=== PATIENT | female | born 1960 | race Caucasian/White ===

== ENCOUNTER 2016-12-11 10:52 | Emergency (ER) | payer OTHER ==
[~2016-12-11] VITALS: Ht 165.1 cm; Wt 85.8 kg
[~2016-12-11 10:52] MED LIST: CHOL400T PO; CLB/200 PO; FOLI1TAB7 PO; HYDR0.5T PO; MAGN250T8 PO; METH2.5T PO; PRED10TA PO
[2016-12-11 11:06] VITALS: TEMP 37.5; Ht 165.1 cm; Wt 85.8 kg
[2016-12-11] MEDS ORDERED: HYDR200T5 PO (12:09)
[2016-12-11] MEDS ORDERED: GLUC10007 PO (12:11)
[2016-12-11] MEDS ORDERED: CALC500C70 PO (12:12)
[2016-12-11] MEDS ORDERED: ACET325T96 PO (12:13)
[2016-12-11 13:03] LABS: PROTHROMBIN TIME (PATIENT) 10.6 SECONDS (9.0-12.0)
[2016-12-11 13:07] LABS: BUN/CREATININE RATIO 21.8 (10-20); CALCIUM 9.5 mg/dl (8.5-10.1); CREATININE 0.71 mg/dl (0.60-1.20); POTASSIUM 3.9 mmol/L (3.5-5.1)
--- NOTE | 2016-12-11 13:14 | DIAGNOSTIC IMAGING REPORT ---
Venous Doppler right leg RIGHT VENOUS DOPP LOWER EXT UNILAT CLINICAL HISTORY: eval dv Right pain. Edema. TECHNIQUE: Venous Doppler COMPARISON STUDY: None FINDINGS: No evidence for deep venous thrombosis. 3 x 2 cm popliteal cyst posterior to the right knee. IMPRESSION: 1. No evidence for deep venous thrombosis. 2. Popliteal cyst posterior to the right knee Electronically signed by: Pravin Avendaño M.D. 12/11/2016 1:12 PM Dictated Date/Time: 12/11/2016 1:11 PM
[2016-12-11 13:15] LABS: BASO % 0.1 %; BASO ABS # 0.02 K/uL (0-0.2); COMPLETE YES; EOS % 0.1 %; HEMATOCRIT 42.4 % (37-47); IG% 0.3 %; LYMPH % 8.5 %; MEAN CELL VOLUME 94.2 fL (80-100); MEAN CORPUSCULAR HEMOGLOBIN 31.8 pg (25-34); MEAN CORPUSCULAR HGB CONC 33.7 g/dl (32-36); MEAN PLATELET VOLUME 8.7 fL (7.4-10.4); MONO % 5.1 %; NEUT % 85.9 %; PLATELET COUNT 291 K/uL (130-400); WHITE BLOOD COUNT 15.26 K/uL (4.8-10.8)
[2016-12-11] MEDS ORDERED: CEFTRIAXONE SOD INJ 1 GM in DEXTROSE 5% ADD-VANTAGE 50ML 50 ML IV STA (13:22)
[2016-12-11] MEDS ORDERED: SULFAMETHOXAZOLE/TRIMETHOPRIM DS 800/160MG TAB PO STA (14:03)
[2016-12-11] MEDS ORDERED: DOXY100C2 PO (14:14)
[2016-12-11] MEDS ORDERED: DOXYCYCLINE HYCLATE 100 MG CAP PO ONE (14:15)
[2016-12-11 14:35] VITALS: BP 117/64; PULSE 78; O2SAT 99
--- NOTE | 2016-12-11 19:53 | EMERGENCY ROOM VISIT NOTE ---
ED Visit Note First contact with patient: 11:29 Chief Complaint: My right leg is hot and swollen. History of Present Illness: Ms. vickers is a 56-year-old white female who ambulates into the ED accompanied by female friend complaining of pain in the right lower leg associated with swelling and redness. Patient was referred to the ED from the [facility] urgent care center for evaluation of her symptoms including rule out of deep vein thrombus. Patient reports 2 days ago she was scratched by a cat on her right lower leg. She did clean the wound after the initial injury. Yesterday she noticed a erythematous rash on her lower leg that has been slowly spreading over the last 24 hours. Associated with her rash she reports a burning pain in the area of her cat scratch and rash. She rates her discomfort 7/10. Her pain is nonradiating. Her pain worsens with palpation. She has not identified any alleviating factors related to the pain. She has not taken any medications for her discomfort prior to arrival at the hospital. Associated with her pain she reports she has noted some swelling and throbbing in the right lower leg. Additionally she does report a few days ago she traveled to [place] from [facility]. She denies any fevers, sweats, chills, other skin eruptions, upper respiratory tract symptoms, cough, wheezing, shortness of breath, palpitations, previous clots, claudication, cramping, recent surgery/inactivity, abdominal pain, nausea , vomiting, back/flank pain, lower extremity weakness/numbness/tingling. Review of Systems: As noted above in history of present illness. All body systems were reviewed and found to be negative as noted above. Past Medical History: Rheumatoid arthritis, status post oral surgery. Current Medications: Prednisone, magnesium, methotrexate, Fernández Gassett, vitamin D, plaquenil, glucosamine, Os-Javy, acetaminophen. Allergies to Medications: Patient denies. Social History: Patient is not employed; she lives with her and feels safe in her home environment; she denies tobacco and alcohol use. Physical Examination: Vital Signs: Date Time Temp Pulse Resp B/P (MAP) Pulse Ox O2 Delivery O2 Flow Rate FiO2 12/11/16 14:35 78 18 117/64 99 12/11/16 12:41 81 18 121/85 98 Room Air 12/11/16 11:06 37.5 85 22 156/118 98 Room Air GENERAL: 56-year-old female in mild distress due to pain, nontoxic-appearing, afebrile and hemodynamically stable. NEUROLOGICAL: Awake, alert and oriented to person, place and time. Answering questions appropriately and following commands. Normal gait. Good hand eye coordination. No focal motor or sensory deficits. SKIN: Warm, dry and pink. Right Lower Leg: Circumferentially over the lower aspect of the leg patient has a fine lacelike erythematous rash. This area slightly swelling there is no extended erythema. Over the rash the skin is warm to touch. The skin does not have true appearance of cellulitis. There is no lymphangitis. No purulent drainage. Additionally this rash is over venous status changes to the extremity. HEENT: Atraumatic and normocephalic. PERRLA. Sclera white and conjunctiva pink. No drainage from naris. Oral cavity moist and pink. Pharynx is nonerythematous or edematous. Speech normal. No lymphadenopathy. Trachea midline. No jugular venous distention. THORAX: Lungs sounds are clear to auscultation and equal bilaterally with symmetrical chest wall. No wheezing, rales or rhonchi. No crepitus, tenderness , subcutaneous air or deformities noted. HEART: Regular rate and rhythm. No gallops, rubs or murmurs are appreciated. ABDOMEN: Soft and nontender. Positive bowel sounds in all quadrants. No guarding, rigidity or organomegaly. EXTREMITIES: Moves all extremities well on command and with purpose. All distal neurovascular statuses are intact and equal bilaterally. RIGHT LOWER EXTREMITY: No gross bony deformity. No tenderness in the knee, ankle or foot. Soft tissue irruption as under noted SKIN. Full range of motion in flexion and extension of the knee and plantar flexion and dorsiflexion of the ankle. No calf tenderness or cords. Distal pulses are intact and capillary refill is brisk. She is able to distinguish light sensations through all dermatomes of the foot. ED Course: Patient is assessed as noted above. Patient's medication list was reviewed. Laboratory Testing: Test 12/11/16 12:31 12/11/16 12:37 Range/Units Sodium Level 140 136-145 mmol/L Potassium Level 3.9 3.5-5.1 mmol/L Chloride Level 106 98-107 mmol/L Carbon Dioxide Level 26 21-32 mmol/L Anion Gap 8.0 3-11 mmol/L Blood Urea Nitrogen 16 7-18 mg/dl Creatinine 0.71 0.60-1.20 mg/dl Est Creatinine Clear Calc Drug Dose 96.8 ml/min Estimated GFR () 111.1 Estimated GFR (Non- 95.9 BUN/Creatinine Ratio 21.8 10-20 Random Glucose 94 70-99 mg/dl Calcium Level 9.5 8.5-10.1 mg/dl White Blood Count 15.26 4.8-10.8 K/uL Red Blood Count 4.50 4.2-5.4 M/uL Hemoglobin 14.3 12.0-16.0 g/dL Hematocrit 42.4 37-47 % Mean Corpuscular Volume 94.2 80-100 fL Mean Corpuscular Hemoglobin 31.8 25-34 pg Mean Corpuscular Hemoglobin Concent 33.7 32-36 g/dl Platelet Count 291 130-400 K/uL Mean Platelet Volume 8.7 7.4-10.4 fL Neutrophils (%) (Auto) 85.9 % Lymphocytes (%) (Auto) 8.5 % Monocytes (%) (Auto) 5.1 % Eosinophils (%) (Auto) 0.1 % Basophils (%) (Auto) 0.1 % Neutrophils # (Auto) 13.09 1.4-6.5 K/uL Lymphocytes # (Auto) 1.30 1.2-3.4 K/uL Monocytes # (Auto) 0.78 0.11-0.59 K/uL Eosinophils # (Auto) 0.02 0-0.5 K/uL Basophils # (Auto) 0.02 0-0.2 K/uL RDW Standard Deviation 45.2 36.4-46.3 fL RDW Coefficient of Variation 13.1 11.5-14.5 % Immature Granulocyte % (Auto) 0.3 % Immature Granulocyte # (Auto) 0.05 0.00-0.02 K/uL Prothrombin Time 10.6 9.0-12.0 SECONDS Prothromb Time International Ratio 1.0 0.9-1.1 Blood Culture: Pending Venous Doppler Ultrasound: Was reviewed by myself and read by the radiologist showing no evidence of deep vein thrombus. Radiologist does note a popliteal cyst. Patient was offered pain medications and refused. Patient's case was consulted with the ED pharmacist; after reviewing her medical records it was decided that she should be covered with doxycycline for antibiotic coverage. Patient was given 100 mg of doxycycline by mouth. Patient requested information about her current ED bill and if it would be covered from her [employer] insurance; I referred her questions to case management who met with the patient. Patient was educated about today's findings and instructed on her treatment plan ; she verbalizes understanding and agreement with this plan. Clinical Impression: Right lower leg cat scratch. Possible cellulitis. Decision-Making: Initially my differential diagnosis I considered cat scratch infection, cellulitis, deep vein thrombus, abscess and other causes. Disposition: Patient discharged home in stable condition accompanied by female friends; prior to departure she was reassessed and subjectively reported she was feeling better and rated her discomfort 3/10. Plan: Patient was encouraged to use ibuprofen or acetaminophen as needed for pain every 6 hours. Patient was prescribed doxycycline 100 mg 2 times a day for 10 days. Patient was encouraged to keep her foot elevated while at rest. Patient was encouraged return the ED and 36-48 hours for recheck. Patient was encouraged return the ED sooner for increasing redness/swelling, red streaking, any puslike drainage from the wound, fevers, uncontrolled pain or any new/concerning symptoms.
== END 2016-12-11 14:35 | disposition home or self-care (01) ==
LOC: C.EDB 10:54 → C.EDD 14:35
DX: S80.811A Abrasion, right lower leg, initial encounter (principal); W55.03XA Scratched by cat, initial encounter; M06.9 Rheumatoid arthritis, unspecified; Z79.899 Other long term (current) drug therapy; Z79.52 Long term (current) use of systemic steroids

== ENCOUNTER 2024-12-17 09:30 | Inpatient (IN) ==
--- NOTE | 2024-12-17 10:17 | Emergency Department Note ---
History of Present Illness General Chief complaint: Shortness of Breath/Dyspnea Stated complaint: CANT BREATH,SOB Time Seen by Provider: 12/17/24 09:42 History of Present Illness Maximum Pain Intensity: 8 Patient is a 64-year-old female with past medical history significant for RA on chronic prednisone and methotrexate, and large B-cell lymphoma status post chemotherapy in 2022 who presents to the emergency department for evaluation of shortness of breath and back pain. She has had multiple screening PET scans since treatment and the scan from november unfortunately noted significant new metabolically active lymphadenopathy. She underwent an intra-abdominal lymph node biopsy in [place] on 6 days ago(12/11). It was an oupatient procedure, and she came home the same day. She expectedly felt poorly the day of surgery, but the following day on Sunday, she felt well, she was up and active and was able to do some yard work. Over the weekend however roughly 3 to 4 days ago, she began to feel increasingly short of breath, and developed back and rib pain. She was seen at her primary care provider's office yesterday, given albuterol inhaler, Flonase and Singulair because they thought her symptoms were related to "sinus drainage." Patient denies any sinus or nasal congestion however. She reports bilateral posterior thoracic rib pain that developed in the last day or so and kept her up overnight. Ibuprofen did help with her pain, but it is worse with coughing. She has had increasing shortness of breath. No help with the albuterol inhaler. She does report abdominal distention, but no pain. She is a little belchy and has been passing gas. She has had a bowel movement since surgery. No urinary symptoms. She does report she is 13 pounds heavier than the day of her surgery. She does admit to anorexia but no nausea or vomiting. Home Medications Medication Instructions Recorded Confirmed Type celecoxib 200 mg capsule (Celebrex) 200 mg PO DAILY 06/14/20 12/17/24 History folic acid 1 mg tablet 1 mg PO DAILY 06/14/20 12/17/24 History magnesium 250 mg tablet 250 mg PO DAILY 06/14/20 12/17/24 History methotrexate sodium 2.5 mg tablet 20 mg PO WK 06/14/20 12/17/24 History acetaminophen 500 mg tablet 1,000 mg PO Q6H PRN fever/pain 06/16/20 12/17/24 History (Tylenol Extra Strength) calcium 600 mg (as 1 tab PO DAILY 04/11/24 12/17/24 History carbonate)-vitamin D3 10 mcg (400 unit) tablet (Calcium 600 + D(3)) gabapentin 300 mg capsule 300 mg PO TID 04/11/24 12/17/24 History prednisone 1 mg tablet 1 mg PO QAM 10/12/24 12/17/24 History prednisone 5 mg tablet 7.5 mg PO QAM 10/12/24 12/17/24 History albuterol sulfate 90 mcg/actuation 2 puff inhalation Q6H PRN 12/17/24 12/17/24 History aerosol inhaler Shortness Of Breath Or Wheezing fluticasone propionate 50 1 spray intranasal DAILY 12/17/24 12/17/24 History mcg/actuation nasal spray,suspension montelukast 10 mg tablet 10 mg PO DAILY 12/17/24 12/17/24 History Allergies Allergy/AdvReac Type Severity Reaction Status Date / Time amoxicillin Allergy Intermediate Rash Verified 12/17/24 12:53 Past Med/Surg History Problem List (Updated 12/17/24 @ 16:37 by Candy Randolph) Bilateral pleural effusion (Acute) Shortness of breath (Acute) Lymphoma Dyspnea on effort Bilateral chylothorax Hypoxia (Acute) Pleural effusion Rotator cuff tear arthropathy of right shoulder COVID-19 (Acute) Postauricular lymphadenopathy Arthritis Cervical lymphadenopathy Laceration (Acute) Medical History Port-A-Cath in place unsure type of device Neuropathy Bilateral Lower Extremeties Rheumatoid arthritis Rotator cuff tear arthropathy of right shoulder History of COVID-19 2020 & 02/2024 - symptoms resolved at this time - no hospitalization Hx of lymphoma 2019 Chemo (most recently in 2022) Dr Daniels/[facility] Cataracts, bilateral Family history of reaction to anesthesia father has a hard time waking Osteoarthritis in back and feet Surgical History Hx of right cataract extraction Hx of lymph node biopsy x3 History of colonoscopy December 2019 History of eye surgery 2017 retached retina - Right History of oral surgery 1983 wisdom teeth Family History Father Hypertension Grandmother Heart disease Stroke Other No family history of adverse response to anesthesia No family history of bleeding disorder Social History Smoking Status: Never smoker Second Hand Exposure: No; Do You Dip or Chew Tobacco: No; Hx Alcohol Use: No Hx Substance Use: No Preferred Language: Mauritanian Communication Ability: Effective 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 Beliefs That Will Affect Care: None Current Living Situation: Spouse Current Living Situation Comment: lives with current occupational status: retired Feels Safe at Home: Yes Assistive Devices: Glasses Review of Systems A total of 10 systems reviewed and were otherwise negative Physical Exam Vital Signs Vital Signs - 24 hr 12/17/24 09:34 12/17/24 09:56 12/17/24 10:31 Temperature 36.7 C Temperature Source Temporal Artery Scan Pulse Rate 90 85 Pulse Rate [Apical] 80 Pulse Rate from SpO2 Sensor Respiratory Rate 18 19 Respiratory Effort / Characteristics Non-Labored Spontaneous Non-Labored Spontaneous Respiratory Depth Normal Normal Respiratory Pattern Regular Blood Pressure 132/86 Blood Pressure [Left Arm] 91/56 L Blood Pressure Mean 101 Blood Pressure Mean [Left Arm] 67 Blood Pressure Position [Left Arm] Semi-fowlers Pulse Oximetry 92 92 Oxygen Delivery Method Room Air Nasal Cannula Oxygen Flow Rate 2 Sepsis Recent Fever Within 48 Hours No Sepsis New/Unexplained Change in Mental Status N/A Sepsis Action Taken by Nursing No Action Required Oxygen Flow Rate - Titration Pulse Oximetry Post Tiitration 12/17/24 10:31 12/17/24 10:46 12/17/24 11:03 Temperature Temperature Source Pulse Rate 80 85 Pulse Rate [Apical] Pulse Rate from SpO2 Sensor 86 Respiratory Rate 19 16 Respiratory Effort / Characteristics Respiratory Depth Respiratory Pattern Blood Pressure 137/77 Blood Pressure [Left Arm] Blood Pressure Mean 97 Blood Pressure Mean [Left Arm] Blood Pressure Position [Left Arm] Pulse Oximetry 92 89 L 91 Oxygen Delivery Method Nasal Cannula Room Air Nasal Cannula Oxygen Flow Rate 2 2 Sepsis Recent Fever Within 48 Hours Sepsis New/Unexplained Change in Mental Status Sepsis Action Taken by Nursing Oxygen Flow Rate - Titration 2 Pulse Oximetry Post Tiitration 92 12/17/24 11:30 12/17/24 11:45 12/17/24 11:57 Temperature Temperature Source Pulse Rate 87 90 Pulse Rate [Apical] Pulse Rate from SpO2 Sensor 88 Respiratory Rate 16 21 Respiratory Effort / Characteristics Respiratory Depth Respiratory Pattern Blood Pressure 128/81 Blood Pressure [Left Arm] Blood Pressure Mean 96 Blood Pressure Mean [Left Arm] Blood Pressure Position [Left Arm] Pulse Oximetry 97 85 L 94 Oxygen Delivery Method Nasal Cannula Nasal Cannula Nasal Cannula Oxygen Flow Rate 2 2 5 Sepsis Recent Fever Within 48 Hours Sepsis New/Unexplained Change in Mental Status Sepsis Action Taken by Nursing Oxygen Flow Rate - Titration Pulse Oximetry Post Tiitration 12/17/24 12:00 12/17/24 12:27 12/17/24 13:00 Temperature Temperature Source Pulse Rate 84 90 92 H Pulse Rate [Apical] Pulse Rate from SpO2 Sensor 84 92 H Respiratory Rate 17 14 18 Respiratory Effort / Characteristics Respiratory Depth Respiratory Pattern Blood Pressure 109/86 108/80 106/72 Blood Pressure [Left Arm] Blood Pressure Mean 93 89 83 Blood Pressure Mean [Left Arm] Blood Pressure Position [Left Arm] Pulse Oximetry 94 94 96 Oxygen Delivery Method Nasal Cannula Nasal Cannula Nasal Cannula Oxygen Flow Rate 5 5 5 Sepsis Recent Fever Within 48 Hours Sepsis New/Unexplained Change in Mental Status Sepsis Action Taken by Nursing Oxygen Flow Rate - Titration Pulse Oximetry Post Tiitration 12/17/24 14:03 12/17/24 14:36 12/17/24 14:57 Temperature Temperature Source Pulse Rate 113 H 102 H 113 H Pulse Rate [Apical] Pulse Rate from SpO2 Sensor Respiratory Rate 20 21 Respiratory Effort / Characteristics Respiratory Depth Respiratory Pattern Blood Pressure 133/94 Blood Pressure [Left Arm] Blood Pressure Mean 107 Blood Pressure Mean [Left Arm] Blood Pressure Position [Left Arm] Pulse Oximetry 91 Oxygen Delivery Method Nasal Cannula Oxygen Flow Rate 5 Sepsis Recent Fever Within 48 Hours Sepsis New/Unexplained Change in Mental Status Sepsis Action Taken by Nursing Oxygen Flow Rate - Titration Pulse Oximetry Post Tiitration 12/17/24 15:00 12/17/24 15:03 12/17/24 15:18 Temperature Temperature Source Pulse Rate 111 H 118 H Pulse Rate [Apical] Pulse Rate from SpO2 Sensor Respiratory Rate 24 16 Respiratory Effort / Characteristics Respiratory Depth Respiratory Pattern Blood Pressure 131/72 Blood Pressure [Left Arm] Blood Pressure Mean 91 Blood Pressure Mean [Left Arm] Blood Pressure Position [Left Arm] Pulse Oximetry Oxygen Delivery Method Oxygen Flow Rate Sepsis Recent Fever Within 48 Hours Sepsis New/Unexplained Change in Mental Status Sepsis Action Taken by Nursing Oxygen Flow Rate - Titration Pulse Oximetry Post Tiitration 12/17/24 15:30 12/17/24 15:39 Temperature Temperature Source Pulse Rate 103 H Pulse Rate [Apical] Pulse Rate from SpO2 Sensor 104 H Respiratory Rate 26 H Respiratory Effort / Characteristics Respiratory Depth Respiratory Pattern Blood Pressure 109/84 Blood Pressure [Left Arm] Blood Pressure Mean 90 Blood Pressure Mean [Left Arm] Blood Pressure Position [Left Arm] Pulse Oximetry 97 Oxygen Delivery Method Nebulizer Oxygen Flow Rate Sepsis Recent Fever Within 48 Hours Sepsis New/Unexplained Change in Mental Status Sepsis Action Taken by Nursing Oxygen Flow Rate - Titration Pulse Oximetry Post Tiitration CONSTITUTIONAL: Patient is a visibly dyspneic 64-year-old female who is a awake and alert and sitting semiupright on the gurney. Vital signs are. She is not tachycardic. Oxygen saturations 92% on room air although when she does cough, and move around, sats dropped into the upper 80s. EYES: Pupils equal, round, reactive to light and accommodation. EOMs intact without nystagmus. Sclera are anicteric. ENT: Tympanic membranes intact, with normal landmarks. External canals are clear. Oral and nasopharynx are clear. Mucous membranes are moist, no lesions, tongue and gums appear normal. CARDIOVASCULAR: Regular rate and rhythm. Peripheral pulses easy to palpable. RESPIRATORY: Breath sounds markedly diminished throughout, few scattered wheezes noted. GI: Bowel sounds are hypoactive. Well-healing surgical incisions with expected surrounding ecchymosis without signs of infection. The abdomen is soft, moderately distended, but nontender to percussion and palpation throughout. MUSCULOSKELETAL: Full range of motion of extremities x 4 with good strength. No cyanosis, edema, joint tenderness or swelling. No deformity. INTEGUMENTARY: No lesions or rash, normal skin turgor. NEUROLOGICAL: Alert, oriented, and cooperative. Cranial nerves, sensation and strength grossly intact. Pupils round, equal, and react to light, EOMs are full. LYMPH: No lymphadenopathy. Course Course The patient was seen and assessed as above. External medical records are reviewed. She presents to the emergency department for progressively worsening shortness of breath and back pain, after recent intra-abdominal lymph node biopsy, and in the setting of a history of lymphoma. IV lock was initiated. Laboratory studies were collected. She was placed on the rn cardiac cath. EKG was obtained. Chest x-ray was performed. Given symptoms and recent surgery, CT scan of the chest, abdomen and pelvis were obtained. Laboratory studies including CBC with differential, CMP, coags, troponin x 2, VBG and lactic acid were collected. She was treated with DuoNeb x 2. She was medicated with fentanyl 50 mcg IV and Zofran 4 mg IV. Patient ultimately did require oxygen for hypoxia and was initially just on 2 L, titrated up to 5 L. Case reviewed with attending physician, Dr. Russell, who agreed with the ED workup and plan. Diagnostics, as interpreted by me: Laboratory studies normal white count at 9500, left shift noted. No anemia. No thrombocytopenia. Coags are normal. VBG is not overtly concerning. Sodium 129, potassium 3.9, chloride 94, carbon dioxide 29, no anion gap. Renal functions are normal. Lactate is not elevated. No transaminitis. Initial troponin 36.4, 2-hour troponin 28.5. ECG: Normal sinus rhythm 87 bpm, no acute ischemic changes, no interval prolongation, no significant change on review of prior EKG from June 2020. Cardiac monitoring: An order was placed for continuous cardiac monitoring. The monitor shows a NSR at a rate of 92 per my interpretation. Imaging studies: Chest x-ray finding pleural effusions with dependent consolidation. Pulmonary vascular congestion with interstitial edema. Chest CT with large pleural effusions with compressive atelectasis of the lungs. No pneumothorax. No PE. CT abdomen and pelvis no pneumatosis or pneumoperitoneum. Patient has diffuse lymphadenopathy, in the supraclavicular, left subpectoral and axillary region, there are also retrocrural lymph nodes, and subcarinal and hilar lymph nodes noted. Patient was reassessed frequently. She did have improved breath sounds with the nebulizer treatments. She did however require increased oxygen by nasal cannula. She did become increasingly tachycardic. All laboratory and reviewed with the patient. Admission/observation was advised and she was agreeable. Patient reviewed with the ED disease case manager rn, [facility] Please refer to admission orders and H&P for further information. Chronic conditions affecting care: History of B-cell lymphoma, rheumatoid arthritis, immunocompromise state. Differential diagnosis: acute myocardial infarction, acute coronary syndrome, myocarditis, pericarditis, pericardial effusions/tamponade, pulmonary embolism, pneumonia, pneumothorax, cardiomyopathy, congestive heart failure, anemia, COPD/asthma exacerbation, infection, pulmonary edema, malignancy among others. Administered Medications Discontinued Medications Albuterol (Albut/Ipratrop 3mg/0.5mg Neb 3 Ml Vial) 3 ml NEB NOW STA; Protocol Stop: 12/17/24 10:04 Last Admin: 12/17/24 10:22 Dose: 3 ml Documented By: LARRY Albuterol (Albut/Ipratrop 3mg/0.5mg Neb 3 Ml Vial) 3 ml NEB NOW STA; Protocol Stop: 12/17/24 10:38 Last Admin: 12/17/24 11:30 Dose: 3 ml Documented By: Fentanyl Citrate (Fentanyl Citrate Pf 100 Mcg/2 Ml Vial) 50 mcg IV NOW STA Stop: 12/17/24 10:09 Last Admin: 12/17/24 10:22 Dose: 50 mcg Documented By: LARRY Furosemide (Furosemide 40 Mg/4 Ml Vial) 40 mg IV ONE ONE Stop: 12/17/24 12:43 Last Admin: 12/17/24 12:55 Dose: 40 mg Documented By: Albumin Human (Albumin 25%) 12.5 gm in 50 mls @ 50 mls/hr IV ONE ONE Stop: 12/17/24 16:21 Last Admin: 12/17/24 15:30 Dose: 50 mls/hr Documented By: WILFRIDO Ioversol (Optiray 320 125ml) 119 ml IV ONCE ONE Stop: 12/17/24 11:18 Last Admin: 12/17/24 11:17 Dose: 119 ml Documented By: JESSICA Levalbuterol HCl (Levalbuterol 1.25 Mg/3 Ml Neb) 1.25 mg NEB Q4H MICKY Stop: 01/16/25 12:44 Last Admin: 12/17/24 12:55 Dose: 1.25 mg Documented By: Levalbuterol HCl (Levalbuterol 1.25 Mg/3 Ml Neb) 1.25 mg NEB Q4R MICKY Stop: 01/16/25 14:59 Last Admin: 12/17/24 15:36 Dose: 1.25 mg Documented By: WILFRIDO Ondansetron HCl (Ondansetron Inj 2 Mg/Ml 2 Ml Vial) 4 mg IV NOW STA Stop: 12/17/24 10:09 Last Admin: 12/17/24 10:22 Dose: 4 mg Documented By: LARRY Medical Decision Making Differential Diagnosis See ED Course. Medical Records Attestation: I reviewed the patient's medical records. Home Medications Current Medication List: was personally reviewed by me Laboratory Data Attestation: I reviewed the patient's lab results. 12/17/24 09:50 12/17/24 09:50 Lab Results 12/17/24 12/17/24 12/17/24 Range/Units 09:50 10:09 10:21 WBC 9.58 (4.8-10.8) K/ul RBC 4.31 (4.20-5.40) M/uL Hgb 14.1 (12.0-16.0) g/dl POC Hgb 13.6 (12.0-16.0) g/dl Hct 40.4 (37.0-47.0) % POC Hct 40 (37-47) % MCV 93.7 (80.0-100.0) fL MCH 32.7 (25.0-34.0) pg MCHC 34.9 (32.0-36.0) g/dL RDW Std Deviation 43.2 (36.4-46.3) fL RDW Coeff of Gypsy 12.5 (11.5-14.5) % Plt Count 260 (130-400) K/uL MPV 8.6 L (9.4-12.4) fL Immature Gran % (Auto) 0.8 % Neut % (Auto) 80.4 % Lymph % (Auto) 5.1 % Harding % (Auto) 8.2 % Eos % (Auto) 5.2 % Baso % (Auto) 0.3 % Neut # (Auto) 7.69 H (1.40-6.50) K/uL Lymph # (Auto) 0.49 L (1.20-3.40) K/uL Harding # (Auto) 0.79 H (0.11-0.59) K/uL Eos # (Auto) 0.50 (0.00-0.50) K/uL Baso # (Auto) 0.03 (0.00-0.20) K/uL Immature Gran # (Auto) 0.08 (0.01-0.20) K/uL PT 10.6 (9.0-12.0) Seconds INR 1.0 (0.9-1.1) APTT 23 (21-31) Seconds PTT Ratio 0.9 VBG pH 7.42 H (7.36-7.41) VBG pCO2 43 (38-50) mmHg VBG pO2 34 mmHg VBG HCO3 28 mmol/L VBG O2 Saturation 60.5 % VBG Base Excess 3.0 mEq/L POC Sodium 130 L (135-144) mmol/L Sodium 129 L (136-145) mmol/L POC Potassium 3.7 (3.3-5.0) mmol/L Potassium 3.9 (3.5-5.1) mmol/L POC Chloride 92 L (101-112) mmol/L Chloride 94 L (98-107) mmol/L Carbon Dioxide 29 (21-32) mmol/L POC Total CO2 25 (24-31) mmol/L Anion Gap 6 (3-11) POC Anion Gap 18.0 (16-25) mmol/L POC BUN 14 (7-18) mg/dl BUN 15 (6-23) mg/dl Creatinine 0.66 (0.6-1.2) mg/dl POC Creatinine 0.8 (0.6-1.3) mg/dl Est Cr Clr Drug Dosing 91.2 ml/min eGFR 98.51 BUN/Creatinine Ratio 22.7 H (10-20) Glucose 119 H (70-99(Fasting)) mg/dl POC Glucose (other) 118 H (70-99) mg/dl Lactate 1.2 (0.4-2.0) mmol/L Calcium 8.5 L (8.6-10.3) mg/dl POC Ioniz Calcium Ruiz 1.10 L (1.12-1.32) mmol/l Total Bilirubin 0.8 (0.2-1.0) mg/dl AST 24 (13-39) U/L ALT 17 (7-52) U/L Alkaline Phosphatase 44 (34-104) U/L Troponin I High Sens 36.4 H (0-14) pg/ml B-Natriuretic Peptide 25 (0-100) pg/ml Total Protein 6.6 (6.0-8.3) gm/dl Albumin 3.4 (3.4-5.0) gm/dl Globulin 3.2 (2.5-4.0) gm/dl Albumin/Globulin Ratio 1.1 (0.9-2) Fluid Comment Pleural Fluid Source Pleural Color Pleural Appearance Pleural pH (7.3-7.4) Pleural WBC (Auto) /uL Pleural RBC (Auto) /uL Pleural LDH Pleural Glucose Pleural Amylase 12/17/24 12/17/24 Range/Units 11:34 Unknown WBC (4.8-10.8) K/ul RBC (4.20-5.40) M/uL Hgb (12.0-16.0) g/dl POC Hgb (12.0-16.0) g/dl Hct (37.0-47.0) % POC Hct (37-47) % MCV (80.0-100.0) fL MCH (25.0-34.0) pg MCHC (32.0-36.0) g/dL RDW Std Deviation (36.4-46.3) fL RDW Coeff of Gypsy (11.5-14.5) % Plt Count (130-400) K/uL MPV (9.4-12.4) fL Immature Gran % (Auto) % Neut % (Auto) % Lymph % (Auto) % Harding % (Auto) % Eos % (Auto) % Baso % (Auto) % Neut # (Auto) (1.40-6.50) K/uL Lymph # (Auto) (1.20-3.40) K/uL Harding # (Auto) (0.11-0.59) K/uL Eos # (Auto) (0.00-0.50) K/uL Baso # (Auto) (0.00-0.20) K/uL Immature Gran # (Auto) (0.01-0.20) K/uL PT (9.0-12.0) Seconds INR (0.9-1.1) APTT (21-31) Seconds PTT Ratio VBG pH (7.36-7.41) VBG pCO2 (38-50) mmHg VBG pO2 mmHg VBG HCO3 mmol/L VBG O2 Saturation % VBG Base Excess mEq/L POC Sodium (135-144) mmol/L Sodium (136-145) mmol/L POC Potassium (3.3-5.0) mmol/L Potassium (3.5-5.1) mmol/L POC Chloride (101-112) mmol/L Chloride (98-107) mmol/L Carbon Dioxide (21-32) mmol/L POC Total CO2 (24-31) mmol/L Anion Gap (3-11) POC Anion Gap (16-25) mmol/L POC BUN (7-18) mg/dl BUN (6-23) mg/dl Creatinine (0.6-1.2) mg/dl POC Creatinine (0.6-1.3) mg/dl Est Cr Clr Drug Dosing ml/min eGFR BUN/Creatinine Ratio (10-20) Glucose (70-99(Fasting)) mg/dl POC Glucose (other) (70-99) mg/dl Lactate (0.4-2.0) mmol/L Calcium (8.6-10.3) mg/dl POC Ioniz Calcium Ruiz (1.12-1.32) mmol/l Total Bilirubin (0.2-1.0) mg/dl AST (13-39) U/L ALT (7-52) U/L Alkaline Phosphatase (34-104) U/L Troponin I High Sens 28.5 H (0-14) pg/ml B-Natriuretic Peptide (0-100) pg/ml Total Protein (6.0-8.3) gm/dl Albumin (3.4-5.0) gm/dl Globulin (2.5-4.0) gm/dl Albumin/Globulin Ratio (0.9-2) Fluid Comment Pleural Fluid Source Right Lung Pleural Color Other Pleural Appearance Turbid Pleural pH 7.45 H (7.3-7.4) Pleural WBC (Auto) 1819 /uL Pleural RBC (Auto) 5000 /uL Pleural LDH Cancelled Pleural Glucose Cancelled Pleural Amylase Cancelled Imaging Data Attestation: I personally reviewed and interpreted this imaging study as follows: Radiologist's Impression: Chest X-Ray 12/17/24 10:04 SINGLE VIEW CHEST CLINICAL HISTORY: Dyspnea FINDINGS: An AP, portable, upright chest radiograph is compared to study dated 06/16/2020. A right internal jugular central venous infusion port is new from previous. The tip of the catheter projects over the right atrium. The heart is enlarged. There is pulmonary vascular congestion with mild interstitial edema. There are layering pleural effusions with dependent consolidation. No pneumothorax is seen. The skeletal structures are osteopenic. The bony thorax is grossly intact. IMPRESSION: 1. Cardiomegaly without evidence of congestive failure and pulmonary edema. 2. Layering pleural effusions with dependent consolidation. ACT 112: Negative or not required by law. Electronically signed by: Paramjit Samayoa M.D. 12/17/2024 10:53 AM Abdomen/Pelvis CT 12/17/24 10:05 CT angio chest PE protocol, CT abd pelvis IV con only HISTORY: 64 years-old Female with SOB, RECENT SURGERY. Acute shortness of breath TECHNIQUE: Multiple CTA images of the chest were obtained after the intravenous administration of 119 ml Optiray. Coronal and sagittal MIPS were obtained from the axial data set and were submitted for review. CT abdomen and pelvis with IV contrast only also obtained. All measurements were obtained according to NASCET criteria. A dose lowering technique was utilized adhering to the principles of ALARA. COMPARISON: CT neck 10/12/2024 FINDINGS: CTA: Heart is mildly enlarged. No pericardial effusion. No thoracic aortic aneurysm. No pulmonary emboli are seen. CT CHEST: No thyroid nodule. Left supraclavicular lymph nodes measure up to 2.4 x 1.3 cm, image 190 series 4. These previously measured up to 1.7 x 0.6 cm. Pathologic left subpectoral and axillary lymph nodes measure up to 2.6 x 1.8 cm on image 136. 1.9 x 1.4 cm right retrocrural lymph node on image 14 series 4. 1.5 x 1.0 cm a lymph node adjacent to the posterior midesophagus on image 121. Borderline enlarged subcarinal and hilar lymph nodes. Large pleural effusions. No pneumothorax. Azygos lobe and fissure. Volume loss with compressive atelectasis of the lungs. No suspicious pulmonary nodules or masses identified. Central airways are patent. Nonspecific wall thickening of the mid to distal esophagus which is partially debris-filled. Fluid surrounds the esophagus-recommend hiatus. Unremarkable soft tissues. No breast mass identified on this study. No acute fracture or destructive bone lesion identified. Subcentimeter sclerotic focus of the sternal manubrium on image 152 series 4 is unchanged. Right scapular sclerotic foci measure up to 1.3 cm. These are nonspecific. CT ABDOMEN/PELVIS: No pneumatosis or pneumoperitoneum. Unremarkable spleen. The pancreas is unremarkable with a punctate calcification of the uncinate process. Possible small gallstone within the gallbladder neck. Gallbladder is otherwise unremarkable. Liver is within normal limits. Patent portal vein. 11 mm cyst of the superior pole left kidney. No hydronephrosis. Mild nonspecific urinary bladder wall thickening. No adnexal mass lesions. Atherosclerosis of the aorta. 1.4 x 0.9 cm aortocaval lymph node on image 159 series 6. Right retrocrural lymphadenopathy as above. Left inguinal chain lymph nodes measure up to 9 mm. Duodenal diverticula. Trace abdominal pelvic ascites. Body wall edema. Mild colonic diverticulosis without acute diverticulitis. The majority of the large bowel is decompressed. Normal appendix. No acute fracture. Lumbar levoscoliosis. No suspicious bone lesions. IMPRESSION: 1. No pulmonary emboli identified. 2. Large pleural effusions with dependent compressive atelectasis of the lungs. 3. Pathologic left supraclavicular lymphadenopathy has progressed from the 10/12/2024 study. Additionally, there is pathologic left subpectoral, axillary, posterior mediastinal/retrocrural lymphadenopathy. If not already conducted, tissue sampling recommended. 4. No bowel obstruction or bowel wall thickening. 5. Debris within the mid esophagus with mild nonspecific mid to distal esophageal wall thickening. 6. Body wall edema with trace ascites. ACT 112: Negative or not required by law. The above report was generated using voice recognition software. It may contain grammatical, syntax or spelling errors. Electronically signed by: Al Haley M.D. 12/17/2024 11:49 AM Chest CTA 12/17/24 10:05 CT angio chest PE protocol, CT abd pelvis IV con only HISTORY: 64 years-old Female with SOB, RECENT SURGERY. Acute shortness of breath TECHNIQUE: Multiple CTA images of the chest were obtained after the intravenous administration of 119 ml Optiray. Coronal and sagittal MIPS were obtained from the axial data set and were submitted for review. CT abdomen and pelvis with IV contrast only also obtained. All measurements were obtained according to NASCET criteria. A dose lowering technique was utilized adhering to the principles of ALARA. COMPARISON: CT neck 10/12/2024 FINDINGS: CTA: Heart is mildly enlarged. No pericardial effusion. No thoracic aortic aneurysm. No pulmonary emboli are seen. CT CHEST: No thyroid nodule. Left supraclavicular lymph nodes measure up to 2.4 x 1.3 cm, image 190 series 4. These previously measured up to 1.7 x 0.6 cm. Pathologic left subpectoral and axillary lymph nodes measure up to 2.6 x 1.8 cm on image 136. 1.9 x 1.4 cm right retrocrural lymph node on image 14 series 4. 1.5 x 1.0 cm a lymph node adjacent to the posterior midesophagus on image 121. Borderline enlarged subcarinal and hilar lymph nodes. Large pleural effusions. No pneumothorax. Azygos lobe and fissure. Volume loss with compressive atelectasis of the lungs. No suspicious pulmonary nodules or masses identified. Central airways are patent. Nonspecific wall thickening of the mid to distal esophagus which is partially debris-filled. Fluid surrounds the esophagus-recommend hiatus. Unremarkable soft tissues. No breast mass identified on this study. No acute fracture or destructive bone lesion identified. Subcentimeter sclerotic focus of the sternal manubrium on image 152 series 4 is unchanged. Right scapular sclerotic foci measure up to 1.3 cm. These are nonspecific. CT ABDOMEN/PELVIS: No pneumatosis or pneumoperitoneum. Unremarkable spleen. The pancreas is unremarkable with a punctate calcification of the uncinate process. Possible small gallstone within the gallbladder neck. Gallbladder is otherwise unremarkable. Liver is within normal limits. Patent portal vein. 11 mm cyst of the superior pole left kidney. No hydronephrosis. Mild nonspecific urinary bladder wall thickening. No adnexal mass lesions. Atherosclerosis of the aorta. 1.4 x 0.9 cm aortocaval lymph node on image 159 series 6. Right retrocrural lymphadenopathy as above. Left inguinal chain lymph nodes measure up to 9 mm. Duodenal diverticula. Trace abdominal pelvic ascites. Body wall edema. Mild colonic diverticulosis without acute diverticulitis. The majority of the large bowel is decompressed. Normal appendix. No acute fracture. Lumbar levoscoliosis. No suspicious bone lesions. IMPRESSION: 1. No pulmonary emboli identified. 2. Large pleural effusions with dependent compressive atelectasis of the lungs. 3. Pathologic left supraclavicular lymphadenopathy has progressed from the 10/12/2024 study. Additionally, there is pathologic left subpectoral, axillary, posterior mediastinal/retrocrural lymphadenopathy. If not already conducted, tissue sampling recommended. 4. No bowel obstruction or bowel wall thickening. 5. Debris within the mid esophagus with mild nonspecific mid to distal esophageal wall thickening. 6. Body wall edema with trace ascites. ACT 112: Negative or not required by law. The above report was generated using voice recognition software. It may contain grammatical, syntax or spelling errors. Electronically signed by: Al Haley M.D. 12/17/2024 11:49 AM Chest X-Ray 12/17/24 15:05 XR chest 1V portable CLINICAL HISTORY: S/P right Thoracentesis COMPARISON STUDY: Chest radiograph and chest CT performed earlier today. FINDINGS: There is no pneumothorax following right thoracentesis. The right pleural effusion has markedly decreased in size. A large left pleural effusion is again noted. Cardiomediastinal silhouette is stable. Right internal jugular [id number] is in place. IMPRESSION: 1. No pneumothorax following right thoracentesis. Marked decrease in size of the right pleural effusion. 2. Large left pleural effusion. ACT 112: Negative or not required by law. Electronically signed by: Rafael Roe M.D. 12/17/2024 3:48 PM MDM Narrative See ED Course. Impression & Plan Shortness of breath, Hypoxia, Bilateral pleural effusion Discharge Plan Visit Data Chief Complaint: Shortness of Breath/Dyspnea Stated Complaint: CANT BREATH,SOB ED Provider: Pravin Russell ED Midlevel Provider: Candy Randolph Discharge Problem: Shortness of breath, Hypoxia, Bilateral pleural effusion Patient Disposition: Admitted As Inpatient Condition: Serious Forms Stand Alone Forms: My [facility] [place] [employer] Prescriptions Prescriptions: No Action methotrexate sodium 2.5 mg tablet 20 mg PO WK Rx Instructions: take 8 tablets daily on Sundays folic acid 1 mg tablet 1 mg PO DAILY celecoxib [Celebrex] 200 mg Capsule 200 mg PO DAILY magnesium 250 mg Tablet 250 mg PO DAILY acetaminophen [Tylenol Extra Strength] 500 mg Tablet 1,000 mg PO Q6H PRN (Reason: fever/pain) calcium carbonate-vitamin D3 [Calcium 600 + D(3)] 600 mg-10 mcg (400 unit) Tablet 1 tab PO DAILY gabapentin 300 mg Capsule 300 mg PO TID prednisone 5 mg tablet 7.5 mg PO QAM Patient Comments: Take w/ 1mg to equal 8.5mg in the morning prednisone 1 mg tablet 1 mg PO QAM Patient Comments: Take w/ 7.5mg to equal 8.5mg in the morning montelukast 10 mg tablet 10 mg PO DAILY albuterol sulfate 90 mcg/actuation HFA aerosol inhaler 2 puff INHALATION Q6H PRN (Reason: Shortness Of Breath Or Wheezing) fluticasone propionate 50 mcg/actuation spray,suspension 1 spray INTRANASAL DAILY Referrals Referrals: Susanne Romero PA-C [Primary Care Provider] -
[2024-12-17] MEDS: ALBUT/IPRATROP 3MG/0.5MG NEB 3 ML VIAL NEB STA ×2 (10:22→11:30)
[2024-12-17] MEDS: ONDANSETRON INJ 2 MG/ML 2 ML VIAL IV STA (10:22)
[2024-12-17 10:23] LABS: Hematocrit (blood only) 40.4 % (37.0-47.0); Hemoglobin 14.1 g/dl (12.0-16.0); Immature Granulocytes # (auto) 0.08 K/uL (0.01-0.20); Immature Granulocytes % (auto) 0.8 %; Mean Corpuscular Hemoglobin 32.7 pg (25.0-34.0); Mean Corpuscular Volume 93.7 fL (80.0-100.0); Platelet Count 260 K/uL (130-400); RDW Standard Deviation 43.2 fL (36.4-46.3); Red Blood Count 4.31 M/uL (4.20-5.40); White Blood Count 9.58 K/ul (4.8-10.8)
[2024-12-17 10:52] LABS: Alanine Aminotransferase 17.0 U/L (7-52); Albumin Globulin Ratio 1.1 (0.9-2); Alkaline Phosphatase 44.0 U/L (34-104); Anion Gap 6.0 (3-11); Bilirubin,Total 0.8 mg/dl (0.2-1.0); Blood Urea Nitrogen 15.0 mg/dl (6-23); Calcium 8.5 mg/dl (8.6-10.3); Carbon Dioxide 29.0 mmol/L (21-32); Chloride 94.0 mmol/L (98-107); Creatinine Clr Calc Pharmacy 91.2 ml/min; Globulin 3.2 gm/dl (2.5-4.0); Glucose 119.0 mg/dl (70-99(Fasting)); Potassium 3.9 mmol/L (3.5-5.1); Sodium 129.0 mmol/L (136-145); Total Protein 6.6 gm/dl (6.0-8.3)
--- NOTE | 2024-12-17 10:54 | XRay Report ---
SINGLE VIEW CHEST CLINICAL HISTORY: Dyspnea FINDINGS: An AP, portable, upright chest radiograph is compared to study dated 06/16/2020. A right inte rnal jugular central venous infusion port is new from previous. The tip of the catheter projects over the right atrium. The heart is enlarged. There is pulmonary vascular congestion with mild interstiti al edema. There are layering pleural effusions with dependent consolidation. No pneumothorax is seen. The skeletal structures are osteopenic. The bony thorax is grossly intact. IMPRESSION: 1. Cardiomegaly without evidence of congestive failure and pulmonary edema. 2. Layering pleural effusions with dependent consolidation. ACT 112: Negative or not required by law. Electronically signed by: Paramjit Samayoa M.D. 12/17/2024 10:53 AM
[2024-12-17 11:00] LABS: INR 1.0 (0.9-1.1); Partial Thromboplastin Time 23 Seconds (21-31); Prothrombin Time 10.6 Seconds (9.0-12.0)
[2024-12-17 11:12] LABS: Base Excess VBG 3.0 mEq/L; HCO3 VBG 28 mmol/L; Oxygen Saturation VBG 60.5 %; PCO2 VBG 43 mmHg (38-50); PO2 VBG 34 mmHg; pH VBG 7.42 (7.36-7.41)
[2024-12-17] MEDS: OPTIRAY 320 125ml IV ONE (11:17)
--- NOTE | 2024-12-17 11:51 | CT Scan Report ---
CT angio chest PE protocol, CT abd pelvis IV con only HISTORY: 64 years-old Female with SOB, RECENT SURGERY. Acute shortness of breath TECHNIQUE: Multiple CTA images of the chest were obtained after the intravenous administration of 119 ml Optiray. Coronal and sagittal MIPS were obtained from the axial data set and were submitted for review. CT abdomen and pelvis with IV contrast only also obtained. All measurements were obtained ac cording to NASCET criteria. A dose lowering technique was utilized adhering to the principles of DAT [place]ardo COMPARISON: CT neck 10/12/2024 FINDINGS: CTA: Heart is mildly enlarged. No pericardial effusion. No thoracic aortic aneurysm. No pulmonary emboli a re seen. CT CHEST: No thyroid nodule. Left supraclavicular lymph nodes measure up to 2.4 x 1.3 cm, image 190 series 4. T hese previously measured up to 1.7 x 0.6 cm. Pathologic left subpectoral and axillary lymph nodes karsten sure up to 2.6 x 1.8 cm on image 136. 1.9 x 1.4 cm right retrocrural lymph node on image 14 series 4. 1.5 x 1.0 cm a lymph node adjacent to the posterior midesophagus on image 121. Borderline enlarged s ubcarinal and hilar lymph nodes. Large pleural effusions. No pneumothorax. Azygos lobe and fissure. Volume loss with compressive atele ctasis of the lungs. No suspicious pulmonary nodules or masses identified. Central airways are patent . Nonspecific wall thickening of the mid to distal esophagus which is partially debris-filled. Fluid surrounds the esophagus-recommend hiatus. Unremarkable soft tissues. No breast mass identified on thi s study. No acute fracture or destructive bone lesion identified. Subcentimeter sclerotic focus of th e sternal manubrium on image 152 series 4 is unchanged. Right scapular sclerotic foci measure up to 1 .3 cm. These are nonspecific. CT ABDOMEN/PELVIS: No pneumatosis or pneumoperitoneum. Unremarkable spleen. The pancreas is unremarka ble with a punctate calcification of the uncinate process. Possible small gallstone within the gallbl adder neck. Gallbladder is otherwise unremarkable. Liver is within normal limits. Patent portal vein. 11 mm cyst of the superior pole left kidney. No hydronephrosis. Mild nonspecific urinary bladder wal l thickening. No adnexal mass lesions. Atherosclerosis of the aorta. 1.4 x 0.9 cm aortocaval lymph no de on image 159 series 6. Right retrocrural lymphadenopathy as above. Left inguinal chain lymph nodes measure up to 9 mm. Duodenal diverticula. Trace abdominal pelvic ascites. Body wall edema. Mild colonic diverticulosis wi thout acute diverticulitis. The majority of the large bowel is decompressed. Normal appendix. No acut e fracture. Lumbar levoscoliosis. No suspicious bone lesions. IMPRESSION: 1. No pulmonary emboli identified. 2. Large pleural effusions with dependent compressive atelectasis of the lungs. 3. Pathologic left supraclavicular lymphadenopathy has progressed from the 10/12/2024 study. Additional ly, there is pathologic left subpectoral, axillary, posterior mediastinal/retrocrural lymphadenopathy . If not already conducted, tissue sampling recommended. 4. No bowel obstruction or bowel wall thickening. 5. Debris within the mid esophagus with mild nonspecific mid to distal esophageal wall thickening. 6. Body wall edema with trace ascites. ACT 112: Negative or not required by law. The above report was generated using voice recognition software. It may contain grammatical, syntax o r spelling errors. Electronically signed by: Al Haley M.D. 12/17/2024 11:49 AM
[2024-12-17] MEDS: LEVALBUTEROL 1.25 MG/3 ML NEB NEB SCH ×2 (12:55→15:36)
[2024-12-17] MEDS: FUROSEMIDE 40 MG/4 ML VIAL IV ONE (12:55)
--- NOTE | 2024-12-17 13:23 | History & Physical Report ---
Date of Service December 17, 2024 Assessment & Plan (1) Cervical lymphadenopathy: (2) Pleural effusion: (3) Hypoxia: Plan The patient is a 64-year-old female who presented to the ED on 12/17/2024 with complaints of shortness of breath found to be in a acute hypoxic respiratory failure with bilateral large pleural effusions Acute hypoxic respiratory failure Bilateral large pleural effusions Shortness of breath worsening over the past 3 days, s/p with no biopsy 12/11 CT chest without PE, shows bilateral pleural effusions, currently on 5 L BNP within normal limits, check echo for completeness; IV lasix x 1 Consult pulmonology, consider thoracentesis considering hypoxia Will need fluid analysis with history of B-cell lymphoma and possible reoccurrence Hx B-cell lymphoma: Initially diagnosed in 2019, completed chemo with stable PET scans Recent PET scan in November 2024 with increased activity, awaiting pathology results from 12/11 Hx RA: Managed on prednisone and methotrexate, hold for now A total of 60 minutes was spent on chart review/reviewing diagnostic data/facilitating plan of care/discussion with consultants Full code DVT prophylaxis: Heparin subcu History of Present Illness Chief Complaint: Shortness of breath Primary Care Provider: Susanne Romero PA-C Patient is a 64-year-old female with a past medical history of RA, managed on methotrexate and prednisone and B-cell lymphomaoriginally diagnosed in 2019, completed chemo and had been stable. Recent PET scan in November 2024 with increased activity. S/p lymph node biopsy on 12/11/2024still pending who presents to the ED on 12/17/2024 with complaints of shortness of breath, slowly worsening over the past 3 days. Patient reports after getting her lymph node biopsy she felt fine. On Sunday night, began with some shortness of breath. Was seen outpatient and started on an inhaler for suspicion of possible asthma. There was no improvement, and the patient reported to the ED today. Found to be hypoxic at 85% on room air and placed on 5 L of oxygen. Patient denies any underlying lung history. She is not a smoker. She denies any recent fever/chills/chest pain. Denies any nausea/vomiting/diarrhea or abdominal pain. On arrival to the ED, labs remarkable for NA 130, chloride 94, glucose 119, calcium 1.10, troponin 28.5, BNP within normal limits Chest x-ray shows: 1. Cardiomegaly without evidence of congestive failure and pulmonary edema. 2. Layering pleural effusions with dependent consolidation. CT chest & A/P 1. No pulmonary emboli identified. 2. Large pleural effusions with dependent compressive atelectasis of the lungs. 3. Pathologic left supraclavicular lymphadenopathy has progressed from the 10/12/2024 study. Additionally, there is pathologic left subpectoral, axillary, p osterior mediastinal/retrocrural lymphadenopathy. If not already conducted, tissue sampling recommended. 4. No bowel obstruction or bowel wall thickening. 5. Debris within the mid esophagus with mild nonspecific mid to distal esophageal wall thickening. 6. Body wall edema with trace ascites. The patient will be admitted for further management of acute hypoxic respiratory failure and bilateral pleural effusions Allergies Allergy/AdvReac Type Severity Reaction Status Date / Time amoxicillin Allergy Intermediate Rash Verified 12/17/24 12:53 Home Medications Medication Instructions Recorded Confirmed Type celecoxib 200 mg capsule (Celebrex) 200 mg PO DAILY 06/14/20 12/17/24 History folic acid 1 mg tablet 1 mg PO DAILY 06/14/20 12/17/24 History magnesium 250 mg tablet 250 mg PO DAILY 06/14/20 12/17/24 History methotrexate sodium 2.5 mg tablet 20 mg PO WK 06/14/20 12/17/24 History acetaminophen 500 mg tablet 1,000 mg PO Q6H PRN fever/pain 06/16/20 12/17/24 History (Tylenol Extra Strength) calcium 600 mg (as 1 tab PO DAILY 04/11/24 12/17/24 History carbonate)-vitamin D3 10 mcg (400 unit) tablet (Calcium 600 + D(3)) gabapentin 300 mg capsule 300 mg PO TID 04/11/24 12/17/24 History prednisone 1 mg tablet 1 mg PO QAM 10/12/24 12/17/24 History prednisone 5 mg tablet 7.5 mg PO QAM 10/12/24 12/17/24 History albuterol sulfate 90 mcg/actuation 2 puff inhalation Q6H PRN 12/17/24 12/17/24 History aerosol inhaler Shortness Of Breath Or Wheezing fluticasone propionate 50 1 spray intranasal DAILY 12/17/24 12/17/24 History mcg/actuation nasal spray,suspension montelukast 10 mg tablet 10 mg PO DAILY 12/17/24 12/17/24 History Past Med/Surg History Problem List (Updated 12/17/24 @ 13:34 by JASON Sapp) Hypoxia Pleural effusion Rotator cuff tear arthropathy of right shoulder COVID-19 (Acute) Postauricular lymphadenopathy Arthritis Cervical lymphadenopathy Laceration (Acute) Medical History Port-A-Cath in place unsure type of device Neuropathy Bilateral Lower Extremeties Rheumatoid arthritis Rotator cuff tear arthropathy of right shoulder History of COVID-19 2020 & 02/2024 - symptoms resolved at this time - no hospitalization Hx of lymphoma 2019 Chemo (most recently in 2022) Dr Daniels/[facility] Cataracts, bilateral Family history of reaction to anesthesia father has a hard time waking Osteoarthritis in back and feet Surgical History Hx of right cataract extraction Hx of lymph node biopsy x3 History of colonoscopy December 2019 History of eye surgery 2017 retached retina - Right History of oral surgery 1983 wisdom teeth Family History Father Hypertension Grandmother Heart disease Stroke Other No family history of adverse response to anesthesia No family history of bleeding disorder Social History Smoking Status: Never smoker Second Hand Exposure: No; Do You Dip or Chew Tobacco: No; Hx Alcohol Use: No Hx Substance Use: No Preferred Language: Arabic Communication Ability: Effective Professor Of Religion Required: No Beliefs That Will Affect Care: None Current Living Situation: Spouse Current Living Situation Comment: lives with current occupational status: retired Feels Safe at Home: Yes Assistive Devices: Glasses Review of Systems Review of Systems: All systems reviewed & are unremarkable except as noted in HPI & below Physical Exam Constitutional: WD/WN, vitals as above Eyes: PERRL, conjunctivae normal, anicteric sclerae ENMT: external ear and nose normal, oropharynx normal Neck: trachea midline, no thyromegaly Respiratory: normal respiratory effort, lungs clear to auscultation + tachypneic; no respiratory distress and does not use accessory muscles Auscultation: + wheezes Cardiovascular: RRR, no murmur, no edema Gastrointestinal (Abdomen): normal bowel sounds, soft, nontender, no hepatosplenomegaly Musculoskeletal: no cyanosis or clubbing, extremities motor strength 5/5 Skin: no rashes, warm and dry Neurologic: PERRL, EOMI, accommodation nl, no face palsy, no dysarthria Psychiatric: A+Ox3, euthymic affect Results & Data Results & Data Vital Signs (Past 12 Hours) Vital Signs Temp Pulse Pulse Resp BP BP Pulse Ox 12/17/24 12:27 90 14 108/80 94 12/17/24 12:00 84 17 109/86 94 12/17/24 11:57 94 12/17/24 11:45 90 21 85 L 12/17/24 11:30 87 16 128/81 97 12/17/24 11:03 85 16 137/77 91 12/17/24 10:46 89 L 12/17/24 10:31 80 19 92 12/17/24 10:31 80 19 91/56 L 92 12/17/24 09:56 85 12/17/24 09:34 36.7 C 90 18 132/86 92 O2 Del Method O2 Flow Rate 12/17/24 12:27 Nasal Cannula 5 12/17/24 12:00 Nasal Cannula 5 12/17/24 11:57 Nasal Cannula 5 12/17/24 11:45 Nasal Cannula 2 12/17/24 11:30 Nasal Cannula 2 12/17/24 11:03 Nasal Cannula 2 12/17/24 10:46 Room Air 12/17/24 10:31 Nasal Cannula 2 12/17/24 10:31 Nasal Cannula 2 12/17/24 09:56 12/17/24 09:34 Room Air Diagnostic Findings Laboratory Results WBC 9.58 K/ul (4.8-10.8) 12/17/24 09:50 RBC 4.31 M/uL (4.20-5.40) 12/17/24 09:50 Hgb 14.1 g/dl (12.0-16.0) 12/17/24 09:50 POC Hgb 13.6 g/dl (12.0-16.0) 12/17/24 10:09 Hct 40.4 % (37.0-47.0) 12/17/24 09:50 POC Hct 40 % (37-47) 12/17/24 10:09 MCV 93.7 fL (80.0-100.0) 12/17/24 09:50 MCH 32.7 pg (25.0-34.0) 12/17/24 09:50 MCHC 34.9 g/dL (32.0-36.0) 12/17/24 09:50 RDW Std Deviation 43.2 fL (36.4-46.3) 12/17/24 09:50 RDW Coeff of Gypsy 12.5 % (11.5-14.5) 12/17/24 09:50 Plt Count 260 K/uL (130-400) 12/17/24 09:50 MPV 8.6 fL (9.4-12.4) L 12/17/24 09:50 Immature Gran % (Auto) 0.8 % 12/17/24 09:50 Neut % (Auto) 80.4 % 12/17/24 09:50 Lymph % (Auto) 5.1 % 12/17/24 09:50 E[place] % (Auto) 8.2 % 12/17/24 09:50 Eos % (Auto) 5.2 % 12/17/24 09:50 Baso % (Auto) 0.3 % 12/17/24 09:50 Neut # (Auto) 7.69 K/uL (1.40-6.50) H 12/17/24 09:50 Lymph # (Auto) 0.49 K/uL (1.20-3.40) L 12/17/24 09:50 Erie # (Auto) 0.79 K/uL (0.11-0.59) H 12/17/24 09:50 Eos # (Auto) 0.50 K/uL (0.00-0.50) 12/17/24 09:50 Baso # (Auto) 0.03 K/uL (0.00-0.20) 12/17/24 09:50 Immature Gran # (Auto) 0.08 K/uL (0.01-0.20) 12/17/24 09:50 PT 10.6 Seconds (9.0-12.0) 12/17/24 09:50 INR 1.0 (0.9-1.1) 12/17/24 09:50 APTT 23 Seconds (21-31) 12/17/24 09:50 PTT Ratio 0.9 12/17/24 09:50 VBG pH 7.42 (7.36-7.41) H 12/17/24 10:21 VBG pCO2 43 mmHg (38-50) 12/17/24 10:21 VBG pO2 34 mmHg 12/17/24 10:21 VBG HCO3 28 mmol/L 12/17/24 10:21 VBG O2 Saturation 60.5 % 12/17/24 10:21 VBG Base Excess 3.0 mEq/L 12/17/24 10:21 POC Sodium 130 mmol/L (135-144) L 12/17/24 10:09 Sodium 129 mmol/L (136-145) L 12/17/24 09:50 POC Potassium 3.7 mmol/L (3.3-5.0) 12/17/24 10:09 Potassium 3.9 mmol/L (3.5-5.1) 12/17/24 09:50 POC Chloride 92 mmol/L (101-112) L 12/17/24 10:09 Chloride 94 mmol/L (98-107) L 12/17/24 09:50 Carbon Dioxide 29 mmol/L (21-32) 12/17/24 09:50 POC Total CO2 25 mmol/L (24-31) 12/17/24 10:09 Anion Gap 6 (3-11) 12/17/24 09:50 POC Anion Gap 18.0 mmol/L (16-25) 12/17/24 10:09 POC BUN 14 mg/dl (7-18) 12/17/24 10:09 BUN 15 mg/dl (6-23) 12/17/24 09:50 Creatinine 0.66 mg/dl (0.6-1.2) 12/17/24 09:50 POC Creatinine 0.8 mg/dl (0.6-1.3) 12/17/24 10:09 Est Cr Clr Drug Dosing 91.2 ml/min 12/17/24 09:50 eGFR 98.51 12/17/24 09:50 BUN/Creatinine Ratio 22.7 (10-20) H 12/17/24 09:50 Glucose 119 mg/dl (70-99(Fasting)) H 12/17/24 09:50 POC Glucose (other) 118 mg/dl (70-99) H 12/17/24 10:09 Lactate 1.2 mmol/L (0.4-2.0) 12/17/24 10:21 Calcium 8.5 mg/dl (8.6-10.3) L 12/17/24 09:50 POC Ioniz Calcium Ruiz 1.10 mmol/l (1.12-1.32) L 12/17/24 10:09 Total Bilirubin 0.8 mg/dl (0.2-1.0) 12/17/24 09:50 AST 24 U/L (13-39) 12/17/24 09:50 ALT 17 U/L (7-52) 12/17/24 09:50 Alkaline Phosphatase 44 U/L (34-104) 12/17/24 09:50 Troponin I High Sens 28.5 pg/ml (0-14) H 12/17/24 11:34 B-Natriuretic Peptide 25 pg/ml (0-100) 12/17/24 10:21 Total Protein 6.6 gm/dl (6.0-8.3) 12/17/24 09:50 Albumin 3.4 gm/dl (3.4-5.0) 12/17/24 09:50 Globulin 3.2 gm/dl (2.5-4.0) 12/17/24 09:50 Albumin/Globulin Ratio 1.1 (0.9-2) 12/17/24 09:50 Impressions Chest X-Ray 12/17/24 10:04 SINGLE VIEW CHEST CLINICAL HISTORY: Dyspnea FINDINGS: An AP, portable, upright chest radiograph is compared to study dated 06/16/2020. A right internal jugular central venous infusion port is new from previous. The tip of the catheter projects over the right atrium. The heart is enlarged. There is pulmonary vascular congestion with mild interstitial edema. There are layering pleural effusions with dependent consolidation. No pneumothorax is seen. The skeletal structures are osteopenic. The bony thorax is grossly intact. IMPRESSION: 1. Cardiomegaly without evidence of congestive failure and pulmonary edema. 2. Layering pleural effusions with dependent consolidation. ACT 112: Negative or not required by law. Electronically signed by: Paramjit Samayoa M.D. 12/17/2024 10:53 AM Abdomen/Pelvis CT 12/17/24 10:05 CT angio chest PE protocol, CT abd pelvis IV con only HISTORY: 64 years-old Female with SOB, RECENT SURGERY. Acute shortness of breath TECHNIQUE: Multiple CTA images of the chest were obtained after the intravenous administration of 119 ml Optiray. Coronal and sagittal MIPS were obtained from the axial data set and were submitted for review. CT abdomen and pelvis with IV contrast only also obtained. All measurements were obtained according to NASCET criteria. A dose lowering technique was utilized adhering to the principles of ALARA. COMPARISON: CT neck 10/12/2024 FINDINGS: CTA: Heart is mildly enlarged. No pericardial effusion. No thoracic aortic aneurysm. No pulmonary emboli are seen. CT CHEST: No thyroid nodule. Left supraclavicular lymph nodes measure up to 2.4 x 1.3 cm, image 190 series 4. These previously measured up to 1.7 x 0.6 cm. Pathologic left subpectoral and axillary lymph nodes measure up to 2.6 x 1.8 cm on image 136. 1.9 x 1.4 cm right retrocrural lymph node on image 14 series 4. 1.5 x 1.0 cm a lymph node adjacent to the posterior midesophagus on image 121. Borderline enlarged subcarinal and hilar lymph nodes. Large pleural effusions. No pneumothorax. Azygos lobe and fissure. Volume loss with compressive atelectasis of the lungs. No suspicious pulmonary nodules or masses identified. Central airways are patent. Nonspecific wall thickening of the mid to distal esophagus which is partially debris-filled. Fluid surrounds the esophagus-recommend hiatus. Unremarkable soft tissues. No breast mass identified on this study. No acute fracture or destructive bone lesion identified. Subcentimeter sclerotic focus of the sternal manubrium on image 152 series 4 is unchanged. Right scapular sclerotic foci measure up to 1.3 cm. These are nonspecific. CT ABDOMEN/PELVIS: No pneumatosis or pneumoperitoneum. Unremarkable spleen. The pancreas is unremarkable with a punctate calcification of the uncinate process. Possible small gallstone within the gallbladder neck. Gallbladder is otherwise unremarkable. Liver is within normal limits. Patent portal vein. 11 mm cyst of the superior pole left kidney. No hydronephrosis. Mild nonspecific urinary bladder wall thickening. No adnexal mass lesions. Atherosclerosis of the aorta. 1.4 x 0.9 cm aortocaval lymph node on image 159 series 6. Right retrocrural lymphadenopathy as above. Left inguinal chain lymph nodes measure up to 9 mm. Duodenal diverticula. Trace abdominal pelvic ascites. Body wall edema. Mild colonic diverticulosis without acute diverticulitis. The majority of the large bowel is decompressed. Normal appendix. No acute fracture. Lumbar levoscoliosis. No suspicious bone lesions. IMPRESSION: 1. No pulmonary emboli identified. 2. Large pleural effusions with dependent compressive atelectasis of the lungs. 3. Pathologic left supraclavicular lymphadenopathy has progressed from the 10/12/2024 study. Additionally, there is pathologic left subpectoral, axillary, posterior mediastinal/retrocrural lymphadenopathy. If not already conducted, tissue sampling recommended. 4. No bowel obstruction or bowel wall thickening. 5. Debris within the mid esophagus with mild nonspecific mid to distal esophageal wall thickening. 6. Body wall edema with trace ascites. ACT 112: Negative or not required by law. The above report was generated using voice recognition software. It may contain grammatical, syntax or spelling errors. Electronically signed by: Al Haley M.D. 12/17/2024 11:49 AM Chest CTA 12/17/24 10:05 CT angio chest PE protocol, CT abd pelvis IV con only HISTORY: 64 years-old Female with SOB, RECENT SURGERY. Acute shortness of breath TECHNIQUE: Multiple CTA images of the chest were obtained after the intravenous administration of 119 ml Optiray. Coronal and sagittal MIPS were obtained from the axial data set and were submitted for review. CT abdomen and pelvis with IV contrast only also obtained. All measurements were obtained according to NASCET criteria. A dose lowering technique was utilized adhering to the principles of ALARA. COMPARISON: CT neck 10/12/2024 FINDINGS: CTA: Heart is mildly enlarged. No pericardial effusion. No thoracic aortic aneurysm. No pulmonary emboli are seen. CT CHEST: No thyroid nodule. Left supraclavicular lymph nodes measure up to 2.4 x 1.3 cm, image 190 series 4. These previously measured up to 1.7 x 0.6 cm. Pathologic left subpectoral and axillary lymph nodes measure up to 2.6 x 1.8 cm on image 136. 1.9 x 1.4 cm right retrocrural lymph node on image 14 series 4. 1.5 x 1.0 cm a lymph node adjacent to the posterior midesophagus on image 121. Borderline enlarged subcarinal and hilar lymph nodes. Large pleural effusions. No pneumothorax. Azygos lobe and fissure. Volume loss with compressive atelectasis of the lungs. No suspicious pulmonary nodules or masses identified. Central airways are patent. Nonspecific wall thickening of the mid to distal esophagus which is partially debris-filled. Fluid surrounds the esophagus-recommend hiatus. Unremarkable soft tissues. No breast mass identified on this study. No acute fracture or destructive bone lesion identified. Subcentimeter sclerotic focus of the sternal manubrium on image 152 series 4 is unchanged. Right scapular sclerotic foci measure up to 1.3 cm. These are nonspecific. CT ABDOMEN/PELVIS: No pneumatosis or pneumoperitoneum. Unremarkable spleen. The pancreas is unremarkable with a punctate calcification of the uncinate process. Possible small gallstone within the gallbladder neck. Gallbladder is otherwise unremarkable. Liver is within normal limits. Patent portal vein. 11 mm cyst of the superior pole left kidney. No hydronephrosis. Mild nonspecific urinary bladder wall thickening. No adnexal mass lesions. Atherosclerosis of the aorta. 1.4 x 0.9 cm aortocaval lymph node on image 159 series 6. Right retrocrural lymphadenopathy as above. Left inguinal chain lymph nodes measure up to 9 mm. Duodenal diverticula. Trace abdominal pelvic ascites. Body wall edema. Mild colonic diverticulosis without acute diverticulitis. The majority of the large bowel is decompressed. Normal appendix. No acute fracture. Lumbar levoscoliosis. No suspicious bone lesions. IMPRESSION: 1. No pulmonary emboli identified. 2. Large pleural effusions with dependent compressive atelectasis of the lungs. 3. Pathologic left supraclavicular lymphadenopathy has progressed from the 10/12/2024 study. Additionally, there is pathologic left subpectoral, axillary, posterior mediastinal/retrocrural lymphadenopathy. If not already conducted, tissue sampling recommended. 4. No bowel obstruction or bowel wall thickening. 5. Debris within the mid esophagus with mild nonspecific mid to distal esophageal wall thickening. 6. Body wall edema with trace ascites. ACT 112: Negative or not required by law. The above report was generated using voice recognition software. It may contain grammatical, syntax or spelling errors. Electronically signed by: Al Haley M.D. 12/17/2024 11:49 AM Supervising Physician Co-Signing Physician Notes Attending Addendum: Case reviewed with the advanced practitioner. I have personally performed a history and physical examination on the patient. I have reviewed the advanced practitioner's documentation on the date of service referenced in note, and I agree with, and take responsibility for the plan of care. please refer to her notes for full details patient seen and examined, records reviewed by myself as well on exam, patient seen resting in bed, sitting up on 5 L NC just had thoracentesis of L pleural effusion done states breathing is ok, no chest pain, fever/chills no other symptoms VS noted and reviewed oriented x3 , not in distress, speaks in sentences with no effort nor accessory muscle use normal rate, regular rhythm, no murmurs R lung: decreased BS mid-base L lung: decreased BS base no wheezing non distended, soft, nontender no bipedal edema, erythema, warmth no neuro deficits all labs, imaging noted and reviewed ASSESSMENT AND PLAN> LARGE BILATERAL PLEURAL EFFUSION B CELL LYMPHOMA for [place]acentesis [place] [facility] [place] pleural fluid studies other diagnoses and plan of care as per advanced practitioner's notes I spent a total of 35 minutes coordinating, documenting, and providing care for this patient, excluding time spent in the performance of separately billed services or time spent by another provider/QHP. Francisco Muhammad MD
--- NOTE | 2024-12-17 15:28 | Procedure Note ---
Procedure Note Date of Service December 17, 2024 Procedure: Diagnostic therapeutic ultrasound-guided catheter thoracentesis Accounts Receivable Clerk: JASON Dukes Supervising physician: Dr. Rodger Read MD Indication: Pleural effusion Consent: Signed by patient and verified with time out prior to procedure Anesthesia: 1% lidocaine without epinephrine local. Procedure: Consent was verified and timeout performed. Appropriate imaging studies were reviewed prior to the procedure. Patient was placed in a seated position and limited thoracic ultrasound was performed of the right chest. See separate imaging. Appropriate site above the diaphragm for thoracentesis was selected. The skin was prepped and draped in normal sterile fashion. Lidocaine was used for local analgesia. Fluid was aspirated via the finder needle. A small skin laurie was made with the scalpel and the catheter over the needle a pparatus was advanced over the rib into the pleural space. Using the syringe one-way valve system, a total of 1750 mL's of milky fluid was removed. Procedure was terminated due to no more fluid on aspiration. The catheter was removed and observed to be intact. A sterile dressing was applied. Post procedure chest x-ray was ordered. Fluid was sent for labs, culture and cytology. Complications: None Blood loss: 0 Supervising Physician Co-Signing Physician Notes I was present throughout the procedure and directly supervised the procedure and assisted. [facility] [place]Charges) Pulmonary/Thoracic Procedure 1: Pulmonary and Thoracic: 48371 Thoracentesis w imaging Coding CPT Codes Pulmonary/Thoracic - Pulmonary and Thoracic: 93664 Thoracentesis w imaging ([id number]) Additional Codes Date of Service ([email or web address])
[2024-12-17] MEDS: ALBUMIN 25% 12.5 GM/50 ML VIAL IV ONE (15:30)
[2024-12-17 15:41] LABS: Appearance Pleural Fluid Turbid; Color Pleural Fluid Other; RBC Pleural Fluid Auto 5000 /uL; Source Pleural Fluid Right Lung; WBC Pleural Fluid Auto 1819 /uL
--- NOTE | 2024-12-17 15:49 | XRay Report ---
XR chest 1V portable CLINICAL HISTORY: S/P right Thoracentesis COMPARISON STUDY: Chest radiograph and chest CT performed earlier today. FINDINGS: There is no pneumothorax following right thoracentesis. The right pleural effusion has presley edly decreased in size. A large left pleural effusion is again noted. Cardiomediastinal silhouette is stable. Right internal jugular [id number] is in place. IMPRESSION: 1. No pneumothorax following right thoracentesis. Marked decrease in size of the right pleural effusi on. 2. Large left pleural effusion. ACT 112: Negative or not required by law. Electronically signed by: Rafael Roe M.D. 12/17/2024 3:48 PM
--- NOTE | 2024-12-17 16:19 | Procedure Note ---
Procedure Note Date of Service December 17, 2024 Procedure: Left thoracentesis 1) Diagnostic and therapeutic ultrasound-guided catheter thoracentesis 2) Ultrasound guidance was used to aid needle placement Flake Cutter Operator: Dr. Rodger Foote Indication: Pleural effusion Consent: Signed by patient and verified with timeout prior to procedure Anesthesia: 8 mL's of 1% lidocaine without epinephrine given locally Procedure: Consent was verified and timeout performed. Appropriate imaging studies were reviewed prior to the procedure. Patient was placed in a seated and limited thoracic ultrasound was performed of the left lateral chest. See separate imaging. The site appropriate for thoracentesis was selected with ultrasound guidance. The skin was prepped and draped in normal sterile fashion. Lidocaine was used for local analgesia. Fluid was aspirated via the finder needle. A small skin laurie was made with the scalpel and the catheter over the needle apparatus was advanced over the rib into the pleural space. Using the syringe one-way valve system, a total of 1400 mL's of chylous appearing fluid was removed. Procedure was terminated due to lack of flow. The catheter was removed and observed to be intact. A sterile dressing was applied. Post procedure chest x-ray was ordered. Fluid was sent for culture and pleural triglycerides. Postprocedure chest x-ray is pending. The patient tolerated the procedure well without obvious complication. [facility] [place] Procedure Codes (Charges) Pulmonary/Thoracic Procedure 1: Pulmonary and Thoracic: 06755 Thoracentesis w imaging Coding CPT Codes Pulmonary/Thoracic - Pulmonary and Thoracic: 65781 Thoracentesis w imaging ([id number]) Additional Codes Date of Service (PG.SURGERY)
--- NOTE | 2024-12-17 16:25 | Pulmonary Consultation ---
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 Bilateral triglyceride levels sent to confirm the diagnosis. Cultures sent from pleural fluid as well along with cell counts and cytology. Recommend consulting with her oncologist PRAMOD given the presence of bilateral hilar thoraces which likely indicate active lymphoma. Recommend low-fat diet. Pleurx catheter is to be contraindicated in, and chylothorax due to the potential for malnutrition. Recommend dietitian consult. (2) Hypoxia: Improved status post bilateral thoracentesis. She still has some mild hypoxemia likely related to atelectasis which should improve with time. Recommend incentive spirometer. (3) Dyspnea on effort: This should continue to resolve with bilateral thoracentesis. (4) Lymphoma: Under the care of of [facility] oncology. Recommend a consultation with them PRAMOD regarding the evidence of likely active lymphoma based on bilateral chylothorax. Plan Thank you for the consult. Will continue to follow with you. History of Present Illness Reason for Consultation: Bilateral large pleural effusions History of Present Illness 64-year-old female with a history of lymphoma thought to be in remission status post R-CHOP therapy who recently underwent a lymph node biopsy in her abdomen last week is presenting with shortness of breath x 5 days. She notes orthopnea. She has occasional cough. She has tried nebulizer treatments in the ER with minimal relief of symptoms. I performed bilateral thoracentesis on the patient with bilateral chylothorax identified on gross evaluation. Status post thoracentesis. Respiratory symptoms improved substantially. She notes that despite her poor appetite her weight has gone up about 5 to 10 pounds. Allergies Allergy/AdvReac Type Severity Reaction Status Date / Time amoxicillin Allergy Intermediate Rash Verified 12/17/24 12:53 Home Medications Medication Instructions Recorded Confirmed Type celecoxib 200 mg capsule (Celebrex) 200 mg PO DAILY 06/14/20 12/17/24 History folic acid 1 mg tablet 1 mg PO DAILY 06/14/20 12/17/24 History magnesium 250 mg tablet 250 mg PO DAILY 06/14/20 12/17/24 History methotrexate sodium 2.5 mg tablet 20 mg PO WK 06/14/20 12/17/24 History acetaminophen 500 mg tablet 1,000 mg PO Q6H PRN fever/pain 06/16/20 12/17/24 History (Tylenol Extra Strength) calcium 600 mg (as 1 tab PO DAILY 04/11/24 12/17/24 History carbonate)-vitamin D3 10 mcg (400 unit) tablet (Calcium 600 + D(3)) gabapentin 300 mg capsule 300 mg PO TID 04/11/24 12/17/24 History prednisone 1 mg tablet 1 mg PO QAM 10/12/24 12/17/24 History prednisone 5 mg tablet 7.5 mg PO QAM 10/12/24 12/17/24 History albuterol sulfate 90 mcg/actuation 2 puff inhalation Q6H PRN 12/17/24 12/17/24 History aerosol inhaler Shortness Of Breath Or Wheezing fluticasone propionate 50 1 spray intranasal DAILY 12/17/24 12/17/24 History mcg/actuation nasal spray,suspension montelukast 10 mg tablet 10 mg PO DAILY 12/17/24 12/17/24 History Patient History Medical History Port-A-Cath in place unsure type of device Neuropathy Bilateral Lower Extremeties Rheumatoid arthritis Rotator cuff tear arthropathy of right shoulder History of COVID-19 2020 & 02/2024 - symptoms resolved at this time - no hospitalization Hx of lymphoma 2019 Chemo (most recently in 2022) Dr Daniels/[facility] Cataracts, bilateral Family history of reaction to anesthesia father has a hard time waking Osteoarthritis in back and feet Surgical History Hx of right cataract extraction Hx of lymph node biopsy x3 History of colonoscopy December 2019 History of eye surgery 2017 retached retina - Right History of oral surgery 1983 wisdom teeth Family History Father Hypertension Grandmother Heart disease Stroke Other No family history of adverse response to anesthesia No family history of bleeding disorder Social History Smoking Status: Never smoker Second Hand Exposure: No; Do You Dip or Chew Tobacco: No; Hx Alcohol Use: No Hx Substance Use: No Preferred Language: Wolof Communication Ability: Effective Rodeo Performer Required: No Beliefs That Will Affect Care: None Current Living Situation: Spouse Current Living Situation Comment: lives with current occupational status: retired Feels Safe at Home: Yes Assistive Devices: Glasses Review of Systems Review of Systems: All systems reviewed & are unremarkable except as noted in HPI & below Physical Exam Physical Exam: Constitutional: Patient appears to be of their stated age. Patient is in no apparent distress. Patient is well-developed. Eyes: Pupils are equal round and reactive to light. Conjunctivae are normal. Anicteric sclera. Ears nose, mouth and throat: Mallampati class 2. Normal posterior oropharynx. Uvula is midline. Neck: Trachea is midline. Visual inspection is normal. Respiratory: Significant diminishment bilaterally. Mild tachypnea. Cardiovascular: Regular rate and rhythm. No murmurs. No edema. Gastrointestinal: Normal bowel sounds, soft, nontender and nondistended. No hepatosplenomegaly noted. Musculoskeletal: No cyanosis. Patient is able to move all extremities. Strength is 5 out of 5 in the upper and lower extremities. Skin: No rashes, warm dry and intact. Neurologic: No obvious focal neurological deficits seen. Psychiatric: Alert and oriented x3 with a euthymic affect. Results & Data Results & Data Vital Signs (Past 12 Hours) Vital Signs Temp Pulse Pulse Resp BP BP Pulse Ox 12/17/24 15:39 103 H 26 H 97 12/17/24 15:30 109/84 12/17/24 15:18 118 H 16 12/17/24 15:03 111 H 24 12/17/24 15:00 131/72 12/17/24 14:57 113 H 21 12/17/24 14:36 102 H 20 133/94 91 12/17/24 14:03 113 H 12/17/24 13:00 92 H 18 106/72 96 12/17/24 12:27 90 14 108/80 94 12/17/24 12:00 84 17 109/86 94 12/17/24 11:57 94 12/17/24 11:45 90 21 85 L 12/17/24 11:30 87 16 128/81 97 12/17/24 11:03 85 16 137/77 91 12/17/24 10:46 89 L 12/17/24 10:31 80 19 92 12/17/24 10:31 80 19 91/56 L 92 12/17/24 09:56 85 12/17/24 09:34 36.7 C 90 18 132/86 92 O2 Del Method O2 Flow Rate 12/17/24 15:39 Nebulizer 12/17/24 15:30 12/17/24 15:18 12/17/24 15:03 12/17/24 15:00 12/17/24 14:57 12/17/24 14:36 Nasal Cannula 5 12/17/24 14:03 12/17/24 13:00 Nasal Cannula 5 12/17/24 12:27 Nasal Cannula 5 12/17/24 12:00 Nasal Cannula 5 12/17/24 11:57 Nasal Cannula 5 12/17/24 11:45 Nasal Cannula 2 12/17/24 11:30 Nasal Cannula 2 12/17/24 11:03 Nasal Cannula 2 12/17/24 10:46 Room Air 12/17/24 10:31 Nasal Cannula 2 12/17/24 10:31 Nasal Cannula 2 12/17/24 09:56 12/17/24 09:34 Room Air PG Care Time/CCT Total # of Minutes Spent Total Time Spent with Patient: Total time spent is greater than 50% in coordination of care (as documented) at patient's floor/unit and/or counseling patient: Coding Level of Care Code 87131 INT INP/OBS CARE 2/55MIN Diagnoses Bilateral chylothorax J94.0 Hypoxia R09.02 Dyspnea on effort R06.09 Lymphoma C85.90
[2024-12-17 16:53] LABS: Appearance Pleural Fluid Turbid; Color Pleural Fluid Other; RBC Pleural Fluid Auto 10000 /uL; Source Pleural Fluid Left Lung; WBC Pleural Fluid Auto 1792 /uL
[2024-12-17] MEDS: GABAPENTIN 300 MG CAP PO STA (17:06)
--- NOTE | 2024-12-17 17:39 | XRay Report ---
EXAM: XR chest 1V portable CLINICAL HISTORY: s/p b/l thora. TECHNIQUE: An X-ray image of the chest is obtained in AP projection. COMPARISON: 06/16/2020. FINDINGS: Pulmonary Parenchyma: Lungs are clear bilaterally. No evidence of consolidation, collapse, or focal opacities. No pulmonary nodules are identified. Mild left-sided pleural effusion noted rising to the axilla. No evidence of right-sided pleural effusion or pleural thickening. Heart and Mediastinum: The cardiac silhouette couldn't be fully assessed. No mediastinal widening or masses. No hilar or mediastinal lymphadenopathy. Bony Thorax: Right-sided acromioclavicular osteoarthritis, the distal end of the clavicle is seen malformed, with the possibility of an old fracture. Soft Tissues: Pranav-cath is seen likely reaching the right ventricle, advise to reposition it for clinical correlation. IMPRESSION: 1. Mild left-sided pleural effusion (new finding). 2. Pranav-cath is seen likely reaching the right ventricle, advise to reposition it for clinical correlation (new finding). 3. Right-sided acromioclavicular osteoarthritis, the distal end of the clavicle is seen malformed, with the possibility of an old fracture (new finding). 4. No other interval changes. Electronically signed by Igor Huston 12-17-2024 5:38 PM
--- NOTE | 2024-12-17 17:43 | Electrocardiogram Report ---
Test Reason : Blood Pressure : */* mmHG Vent. Rate : 87 BPM Atrial Rate : 87 BPM P-R Int : 146 ms QRS Dur : 88 ms QT Int : 354 ms P-R-T Axes : -1 -3 26 degrees QTcB Int : 425 ms Normal sinus rhythm Normal ECG When compared with ECG of 14-Jun-2020 06:01, No significant change was found Confirmed by Marcel Richardson ([id number]) on 12/17/2024 5:43:17 PM Referred By: REFERRED SELF Confirmed By: Marcel Richardson
[2024-12-17] MEDS: ACETAMINOPHEN 325 MG TAB PO PRN (17:48)
[2024-12-17 18:35] LABS: Triglycerides 92.0 mg/dl (0-150)
[2024-12-17] MEDS: PROMETHAZINE 12.5 MG/50.5 ML BAG IV PRN (20:34)
[2024-12-18] MEDS: ACETAMINOPHEN 1,000 MG/100 ML VIAL IV STA (06:24)
[2024-12-18 06:47] LABS: Eosinophils, Fluid 1 %; Lymphocytes, Fluid 9 %; Mono,Macrophage,Mesothelial 24 %; Neutrophils, Fluid 66 %
[2024-12-18 06:52] LABS: Lymphocytes, Fluid 8 %; Mono,Macrophage,Mesothelial 50 %; Neutrophils, Fluid 42 %
[2024-12-18 07:10] LABS: Hematocrit (blood only) 36.5 % (37.0-47.0); Hemoglobin 12.7 g/dl (12.0-16.0); Immature Granulocytes # (auto) 0.06 K/uL (0.01-0.20); Immature Granulocytes % (auto) 0.9 %; Mean Corpuscular Hemoglobin 33.1 pg (25.0-34.0); Mean Corpuscular Volume 95.1 fL (80.0-100.0); Platelet Count 229 K/uL (130-400); RDW Standard Deviation 43.7 fL (36.4-46.3); Red Blood Count 3.84 M/uL (4.20-5.40); White Blood Count 6.47 K/ul (4.8-10.8)
[2024-12-18] MEDS: HEPARIN SOD 5,000 UNIT/0.5 ML VIAL SQ SCH (07:27)
[2024-12-18 07:30] LABS: Alanine Aminotransferase 13.0 U/L (7-52); Albumin Globulin Ratio 1.2 (0.9-2); Alkaline Phosphatase 36.0 U/L (34-104); Anion Gap 4.0 (3-11); Bilirubin,Total 0.6 mg/dl (0.2-1.0); Blood Urea Nitrogen 16.0 mg/dl (6-23); Calcium 8.0 mg/dl (8.6-10.3); Carbon Dioxide 30.0 mmol/L (21-32); Chloride 99.0 mmol/L (98-107); Creatinine Clr Calc Pharmacy 95.2 ml/min; Globulin 2.7 gm/dl (2.5-4.0); Glucose 110.0 mg/dl (70-99(Fasting)); Potassium 4.0 mmol/L (3.5-5.1); Sodium 133.0 mmol/L (136-145); Total Protein 5.9 gm/dl (6.0-8.3)
--- NOTE | 2024-12-18 09:18 | Pulmonology Progress Note ---
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 Bilateral triglyceride levels sent to confirm the diagnosis. Cultures sent from pleural fluid as well along with cell counts and cytology. Recommend consulting with her oncologist PRAMOD given the presence of bilateral chylothorax which is likely indicate active lymphoma. Recommend low- fat diet. Pleurx catheter is contraindicated in chylothorax due to the potential for malnutrition. Recommend dietitian consult. (2) Hypoxia: Plan: Improved status post bilateral thoracentesis. She still has some mild hypoxemia likely related to atelectasis which should improve with time. Recommend incentive spirometer. (3) Dyspnea on effort: Plan: This should continue to resolve with bilateral thoracentesis. (4) Lymphoma: Plan: Under the care of of [facility] oncology. Recommend a consultation with them PRAMOD regarding the evidence of likely active lymphoma based on bilateral chylothorax. (5) Chest pain: Plan: Obtain chest x-ray today to rule out delayed postprocedure pneumothorax. Plan If repeat chest x-ray is unremarkable, recommend discharge with potential supplemental oxygen. She can follow-up with the pulmonary clinic as an outpatient. 2 to 3 weeks. Admission and Anticipated Discharge Date Admission Date: December 17, 2024 Subjective Patient seen and examined. She feels that her breathing has improved and was able to sleep better. She has less dyspnea on exertion. She does endorse mild right-sided posterior back pain after the thoracentesis yesterday. Review of Systems Review of Systems: All systems reviewed & are unremarkable except as noted in HPI & below Physical Exam Physical Exam: Constitutional: Patient appears to be of their stated age. Patient is in no apparent distress. Patient is well-developed. Eyes: Pupils are equal round and reactive to light. Conjunctivae are normal. Anicteric sclera. Ears nose, mouth and throat: Mallampati class 2. Normal posterior oropharynx. Uvula is midline. Neck: Trachea is midline. Visual inspection is normal. Respiratory: Tachypnea improved. Improved aeration bilaterally. Minimal crackles. Cardiovascular: Regular rate and rhythm. No murmurs. No edema. Gastrointestinal: Normal bowel sounds, soft, nontender and nondistended. No hepatosplenomegaly noted. Musculoskeletal: No cyanosis. Patient is able to move all extremities. Strength is 5 out of 5 in the upper and lower extremities. Skin: No rashes, warm dry and intact. Neurologic: No obvious focal neurological deficits seen. Psychiatric: Alert and oriented x3 with a euthymic affect. Results & Data Results & Data Vital Signs (Past 12 Hours) Vital Signs Temp Pulse Pulse Resp BP Pulse Ox O2 Del Method 12/18/24 08:33 77 12/18/24 08:33 Nasal Cannula 12/18/24 07:17 36.7 C 77 20 107/70 94 Nasal Cannula 12/18/24 03:01 36.7 C 86 18 118/81 94 Nasal Cannula 12/17/24 22:39 36.8 C 93 H 20 121/75 93 Nasal Cannula 12/17/24 21:54 99 H O2 Flow Rate 12/18/24 08:33 12/18/24 08:33 3 12/18/24 07:17 3 12/18/24 03:01 3 12/17/24 22:39 3 12/17/24 21:54 PG Care Time/CCT Total # of Minutes Spent Total Time Spent with Patient: Total time spent is greater than 50% in coordination of care (as documented) at patient's floor/unit and/or counseling patient: Coding Level of Care Code 73704 SUB INP/OBS CARE 2/35MIN Diagnoses Bilateral chylothorax J94.0 Hypoxia R09.02 Dyspnea on effort R06.09 Lymphoma C85.90 Chest pain R07.9
--- NOTE | 2024-12-18 09:53 | XRay Report ---
SINGLE VIEW CHEST CLINICAL HISTORY: Right-sided chest pain FINDINGS: An AP, portable, upright chest radiograph is compared to study dated 12/17/2024. A right inte rnal jugular central venous infusion port is unchanged position. The heart is enlarged. There is pulm onary vascular congestion, which has worsened from yesterday. There are layering pleural effusions wi th dependent consolidation, left side larger than right. No pneumothorax is seen. The skeletal struct ures are osteopenic. The bony thorax is grossly intact. IMPRESSION: 1. Cardiomegaly with pulmonary vascular congestion. This has worsened from yesterday. 2. Left larger than right pleural effusions with dependent consolidation. ACT 112: Negative or not required by law. Electronically signed by: Paramjit Samayoa M.D. 12/18/2024 9:51 AM
[2024-12-18] MEDS: FOLIC ACID 1 MG TAB PO SCH (10:21)
[2024-12-18] MEDS: GABAPENTIN 300 MG CAP PO SCH (10:21)
[2024-12-18] MEDS: FLUTICASONE PROPIONATE NA SPR 16 GM BTL SCH (11:04)
[2024-12-18] MEDS ORDERED: ALBUTEROL HFA 8 GM INHALER INH PRN (12:04)
--- NOTE | 2024-12-18 12:23 | Hospitalist Progress Note ---
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 Bilateral triglyceride levels sent to confirm the diagnosis- pending * Low fat diet, new autos delivery driver consult * Repeat CXR today with with pulmonary vascular congestion. This has worsened from yesterday * Continue incentive spirometry given atelectasis contributing as well Saturating at 93% on 3L NC Repeat CXR in AM Marginal B cell Lymphoma Initially diagnosed in 2019, completed R-CHOP chemo and was under observation. However, PET scans since Feb 2024 with increased activity Most recent PET scan from 11/26/2024 revealing further increase in the multiple metabolic active lymph nodes noted, underwent laparoscopic evaluation at [facility] on 12/11/2024 - awaiting pathology results Discussed case with Dr. Daniels, heme onc today - patient recently underwent lap eval with biopsy of lymph node of abdomen, path pending. Follows with lymphoma specialist Dr. Montanez ([facility]) Recommends continue observation until triglyceride level results, then consult with Dr. Montanez for further recs Hx RA Managed on prednisone and methotrexate Hold methotrexate for now Resumed home Tylenol, Gabapentin DVT Ppx: SQ heparin Code status: FULL PCP: NELLI Romero Dispo: Admitted to PCU Care coordinated with Dr. Teran. I spent a total of 55 minutes coordinating, documenting, and providing care for this patient excluding time spent in the performance of separately billed services or time spent by another provider/QHP. Admission and Anticipated Discharge Date Admission Date: December 17, 2024 Supervising Physician Co-Signing Physician Notes Patient is seen and examined at bedside. Cough, dyspnea improved from yesterday. Discussed with patient's family at bedside. Also states having some right-sided pleuritic pain. No other complaints today. Physical Exam: Vitals signs as noted above General Appearance: Overweight, no apparent distress Head: normocephalic, Atraumatic Eyes: normal inspection, EOMI Neck: supple, Trachea midline Respiratory/Chest: Decreased breath sounds at bases, CTA, + Chemo-Port, no accessory muscle use Cardiovascular: S1, S2, No murmur Abdomen/GI:Soft, Non tender, Bowel sounds present Extremities/Musculoskeletal:normal inspection, 1+ edema Neurologic/Psych:AAOX3, grossly no focal neurological deficits Skin: normal color, warm Bilateral chylothorax Acute respiratory failure with hypoxia Likely secondary to B-cell lymphoma S/P B/L thoracentesis Follow-up pleural fluid studies Repeat chest x-ray tomorrow Appreciate pulmonary input Also discussed with oncology as above Further management to be determined based on pleural fluid studies Wean off of supplemental oxygen as able May need 2 step prior to discharge I personally interviewed and examined the patient at bedside. I have reviewed the advanced practitioner's documentation on the date of service referred in note and agree with plan. Patient's care is coordinated with Joselyn Phillips PA-C. Please refer to the documentation above for details of patient's presentation and for discussion of other issues. I spent a total of 27minutes coordinating, documenting, and providing care for this patient excluding time spent in the performance of separately billed services or time spent by another provider/QHP. Subjective Patient seen and examined in 239-2. Feeling okay compared to yesterday. Breathing slightly improved. No F/C overnight, still on 3L NC O2. R sided back discomfort 2/2 thoracentesis procedure yesterday. No CP, N/V, abd pain, dysuria, diarrhea or constipation. Review of Systems Review of Systems: At least ten systems reviewed and negative except as noted in the HPI. Physical Exam Physical Exam: Gen: WD/WN, NAD, resting in bed, A&Ox3 HEENT: Normocephalic, atraumatic Lung: Decreased breathsounds at bilateral bases, crackles, no wheezes Heart: Regular rate, regular rhythm, trade BLE edema Abdomen: Soft, NT, ND +BS x 4 Skin: Warm, no rash Results & Data Results & Data Vital Signs (Past 12 Hours) Vital Signs Temp Pulse Pulse Pulse Resp BP Pulse Ox 12/18/24 10:40 36.4 C L 82 18 110/73 93 12/18/24 08:33 77 12/18/24 08:33 12/18/24 07:17 36.7 C 77 20 107/70 94 12/18/24 03:01 36.7 C 86 18 118/81 94 O2 Del Method O2 Flow Rate 12/18/24 10:40 Nasal Cannula 3 12/18/24 08:33 12/18/24 08:33 Nasal Cannula 3 12/18/24 07:17 Nasal Cannula 3 12/18/24 03:01 Nasal Cannula 3 Laboratory Results Short CBC 12/18/24 Range/Units 06:37 WBC 6.47 (4.8-10.8) K/ul Hgb 12.7 (12.0-16.0) g/dl Hct 36.5 L (37.0-47.0) % Plt Count 229 (130-400) K/uL BMP 12/18/24 06:37 Sodium 133 L Potassium 4.0 Chloride 99 Carbon Dioxide 30 BUN 16 Creatinine 0.63 Glucose 110 H Calcium 8.0 L Liver Function 12/18/24 Range/Units 06:37 Total Bilirubin 0.6 (0.2-1.0) mg/dl AST 17 (13-39) U/L ALT 13 (7-52) U/L Alkaline Phosphatase 36 (34-104) U/L Albumin 3.2 L (3.4-5.0) gm/dl Diagnostic Findings Chest X-Ray 12/17/24 10:04 SINGLE VIEW CHEST CLINICAL HISTORY: Dyspnea FINDINGS: An AP, portable, upright chest radiograph is compared to study dated 06/16/2020. A right internal jugular central venous infusion port is new from previous. The tip of the catheter projects over the right atrium. The heart is enlarged. There is pulmonary vascular congestion with mild interstitial edema. There are layering pleural effusions with dependent consolidation. No pneumothorax is seen. The skeletal structures are osteopenic. The bony thorax is grossly intact. IMPRESSION: 1. Cardiomegaly without evidence of congestive failure and pulmonary edema. 2. Layering pleural effusions with dependent consolidation. ACT 112: Negative or not required by law. Electronically signed by: Paramjit Samayoa M.D. 12/17/2024 10:53 AM Abdomen/Pelvis CT 12/17/24 10:05 CT angio chest PE protocol, CT abd pelvis IV con only HISTORY: 64 years-old Female with SOB, RECENT SURGERY. Acute shortness of breath TECHNIQUE: Multiple CTA images of the chest were obtained after the intravenous administration of 119 ml Optiray. Coronal and sagittal MIPS were obtained from the axial data set and were submitted for review. CT abdomen and pelvis with IV contrast only also obtained. All measurements were obtained according to NASCET criteria. A dose lowering technique was utilized adhering to the principles of ALARA. COMPARISON: CT neck 10/12/2024 FINDINGS: CTA: Heart is mildly enlarged. No pericardial effusion. No thoracic aortic aneurysm. No pulmonary emboli are seen. CT CHEST: No thyroid nodule. Left supraclavicular lymph nodes measure up to 2.4 x 1.3 cm, image 190 series 4. These previously measured up to 1.7 x 0.6 cm. Pathologic left subpectoral and axillary lymph nodes measure up to 2.6 x 1.8 cm on image 136. 1.9 x 1.4 cm right retrocrural lymph node on image 14 series 4. 1.5 x 1.0 cm a lymph node adjacent to the posterior midesophagus on image 121. Borderline enlarged subcarinal and hilar lymph nodes. Large pleural effusions. No pneumothorax. Azygos lobe and fissure. Volume loss with compressive atelectasis of the lungs. No suspicious pulmonary nodules or masses identified. Central airways are patent. Nonspecific wall thickening of the mid to distal esophagus which is partially debris-filled. Fluid surrounds the esophagus-recommend hiatus. Unremarkable soft tissues. No breast mass identified on this study. No acute fracture or destructive bone lesion identified. Subcentimeter sclerotic focus of the sternal manubrium on image 152 series 4 is unchanged. Right scapular sclerotic foci measure up to 1.3 cm. These are nonspecific. CT ABDOMEN/PELVIS: No pneumatosis or pneumoperitoneum. Unremarkable spleen. The pancreas is unremarkable with a punctate calcification of the uncinate process. Possible small gallstone within the gallbladder neck. Gallbladder is otherwise unremarkable. Liver is within normal limits. Patent portal vein. 11 mm cyst of the superior pole left kidney. No hydronephrosis. Mild nonspecific urinary bladder wall thickening. No adnexal mass lesions. Atherosclerosis of the aorta. 1.4 x 0.9 cm aortocaval lymph node on image 159 series 6. Right retrocrural lymphadenopathy as above. Left inguinal chain lymph nodes measure up to 9 mm. Duodenal diverticula. Trace abdominal pelvic ascites. Body wall edema. Mild colonic diverticulosis without acute diverticulitis. The majority of the large bowel is decompressed. Normal appendix. No acute fracture. Lumbar levoscoliosis. No suspicious bone lesions. IMPRESSION: 1. No pulmonary emboli identified. 2. Large pleural effusions with dependent compressive atelectasis of the lungs. 3. Pathologic left supraclavicular lymphadenopathy has progressed from the 10/12/2024 study. Additionally, there is pathologic left subpectoral, axillary, posterior mediastinal/retrocrural lymphadenopathy. If not already conducted, tissue sampling recommended. 4. No bowel obstruction or bowel wall thickening. 5. Debris within the mid esophagus with mild nonspecific mid to distal esophageal wall thickening. 6. Body wall edema with trace ascites. ACT 112: Negative or not required by law. The above report was generated using voice recognition software. It may contain grammatical, syntax or spelling errors. Electronically signed by: Al Haley M.D. 12/17/2024 11:49 AM Chest CTA 12/17/24 10:05 CT angio chest PE protocol, CT abd pelvis IV con only HISTORY: 64 years-old Female with SOB, RECENT SURGERY. Acute shortness of breath TECHNIQUE: Multiple CTA images of the chest were obtained after the intravenous administration of 119 ml Optiray. Coronal and sagittal MIPS were obtained from the axial data set and were submitted for review. CT abdomen and pelvis with IV contrast only also obtained. All measurements were obtained according to NASCET criteria. A dose lowering technique was utilized adhering to the principles of ALARA. COMPARISON: CT neck 10/12/2024 FINDINGS: CTA: Heart is mildly enlarged. No pericardial effusion. No thoracic aortic aneurysm. No pulmonary emboli are seen. CT CHEST: No thyroid nodule. Left supraclavicular lymph nodes measure up to 2.4 x 1.3 cm, image 190 series 4. These previously measured up to 1.7 x 0.6 cm. Pathologic left subpectoral and axillary lymph nodes measure up to 2.6 x 1.8 cm on image 136. 1.9 x 1.4 cm right retrocrural lymph node on image 14 series 4. 1.5 x 1.0 cm a lymph node adjacent to the posterior midesophagus on image 121. Borderline enlarged subcarinal and hilar lymph nodes. Large pleural effusions. No pneumothorax. Azygos lobe and fissure. Volume loss with compressive atelectasis of the lungs. No suspicious pulmonary nodules or masses identified. Central airways are patent. Nonspecific wall thickening of the mid to distal esophagus which is partially debris-filled. Fluid surrounds the esophagus-recommend hiatus. Unremarkable soft tissues. No breast mass identified on this study. No acute fracture or destructive bone lesion ident ified. Subcentimeter sclerotic focus of the sternal manubrium on image 152 series 4 is unchanged. Right scapular sclerotic foci measure up to 1.3 cm. These are nonspecific. CT ABDOMEN/PELVIS: No pneumatosis or pneumoperitoneum. Unremarkable spleen. The pancreas is unremarkable with a punctate calcification of the uncinate process. Possible small gallstone within the gallbladder neck. Gallbladder is otherwise unremarkable. Liver is within normal limits. Patent portal vein. 11 mm cyst of the superior pole left kidney. No hydronephrosis. Mild nonspecific urinary bladder wall thickening. No adnexal mass lesions. Atherosclerosis of the aorta. 1.4 x 0.9 cm aortocaval lymph node on image 159 series 6. Right retrocrural lymphadenopathy as above. Left inguinal chain lymph nodes measure up to 9 mm. Duodenal diverticula. Trace abdominal pelvic ascites. Body wall edema. Mild colonic diverticulosis without acute diverticulitis. The majority of the large bowel is decompressed. Normal appendix. No acute fracture. Lumbar levoscoliosis. No suspicious bone lesions. IMPRESSION: 1. No pulmonary emboli identified. 2. Large pleural effusions with dependent compressive atelectasis of the lungs. 3. Pathologic left supraclavicular lymphadenopathy has progressed from the 10/12/2024 study. Additionally, there is pathologic left subpectoral, axillary, posterior mediastinal/retrocrural lymphadenopathy. If not already conducted, tissue sampling recommended. 4. No bowel obstruction or bowel wall thickening. 5. Debris within the mid esophagus with mild nonspecific mid to distal esophageal wall thickening. 6. Body wall edema with trace ascites. ACT 112: Negative or not required by law. The above report was generated using voice recognition software. It may contain grammatical, syntax or spelling errors. Electronically signed by: Al Haley M.D. 12/17/2024 11:49 AM Chest X-Ray 12/17/24 15:05 XR chest 1V portable CLINICAL HISTORY: S/P right Thoracentesis COMPARISON STUDY: Chest radiograph and chest CT performed earlier today. FINDINGS: There is no pneumothorax following right thoracentesis. The right pleural effusion has markedly decreased in size. A large left pleural effusion is again noted. Cardiomediastinal silhouette is stable. Right internal jugular [id number] is in place. IMPRESSION: 1. No pneumothorax following right thoracentesis. Marked decrease in size of the right pleural effusion. 2. Large left pleural effusion. ACT 112: Negative or not required by law. Electronically signed by: Rafael Roe M.D. 12/17/2024 3:48 PM Chest X-Ray 12/17/24 16:16 EXAM: XR chest 1V portable CLINICAL HISTORY: s/p b/l thora. TECHNIQUE: An X-ray image of the chest is obtained in AP projection. COMPARISON: 06/16/2020. FINDINGS: Pulmonary Parenchyma: Lungs are clear bilaterally. No evidence of consolidation, collapse, or focal opacities. No pulmonary nodules are identified. Mild left-sided pleural effusion noted rising to the axilla. No evidence of right-sided pleural effusion or pleural thickening. Heart and Mediastinum: The cardiac silhouette couldn't be fully assessed. No mediastinal widening or masses. No hilar or mediastinal lymphadenopathy. Bony Thorax: Right-sided acromioclavicular osteoarthritis, the distal end of the clavicle is seen malformed, with the possibility of an old fracture. Soft Tissues: Pranav-cath is seen likely reaching the right ventricle, advise to reposition it for clinical correlation. IMPRESSION: 1. Mild left-sided pleural effusion (new finding). 2. Pranav-cath is seen likely reaching the right ventricle, advise to reposition it for clinical correlation (new finding). 3. Right-sided acromioclavicular osteoarthritis, the distal end of the clavicle is seen malformed, with the possibility of an old fracture (new finding). 4. No other interval changes. Electronically signed by Igor Huston 12-17-2024 5:38 PM Chest X-Ray 12/18/24 09:15 SINGLE VIEW CHEST CLINICAL HISTORY: Right-sided chest pain FINDINGS: An AP, portable, upright chest radiograph is compared to study dated 12/17/2024. A right internal jugular central venous infusion port is unchanged position. The heart is enlarged. There is pulmonary vascular congestion, which has worsened from yesterday. There are layering pleural effusions with dependent consolidation, left side larger than right. No pneumothorax is seen. The skeletal structures are osteopenic. The bony thorax is grossly intact. IMPRESSION: 1. Cardiomegaly with pulmonary vascular congestion. This has worsened from yesterday. 2. Left larger than right pleural effusions with dependent consolidation. ACT 112: Negative or not required by law. Electronically signed by: Paramjit Samayoa M.D. 12/18/2024 9:51 AM
--- NOTE | 2024-12-18 15:53 | XRay Report ---
TWO VIEW CHEST CLINICAL HISTORY: Right-sided chest pain FINDINGS: PA and lateral chest radiographs are compared to study performed earlier the same day 2024 and correlated with chest CT dated 12/17/2024. A right internal jugular central venous infusion po rt is unchanged in position. The heart is enlarged. There is mild pulmonary vascular congestion. Ther e are layering pleural effusions with dependent consolidation. No pneumothorax is seen. The skeletal structures are osteopenic. The bony thorax is grossly intact. IMPRESSION: 1. Cardiomegaly. Mild pulmonary vascular congestion persists. 2. Layering pleural effusion with dependent consolidation. ACT 112: Negative or not required by law. Electronically signed by: Paramjit Samayoa M.D. 12/18/2024 3:52 PM
--- NOTE | 2024-12-18 17:41 | Electrocardiogram Report ---
Test Reason : Blood Pressure : */* mmHG Vent. Rate : 97 BPM Atrial Rate : 97 BPM P-R Int : 158 ms QRS Dur : 84 ms QT Int : 320 ms P-R-T Axes : 9 -13 -21 degrees QTcB Int : 406 ms Normal sinus rhythm Minimal voltage criteria for LVH, may be normal variant possible Inferior infarct , age undetermined Nonspecific ST abnormality Abnormal ECG When compared with ECG of 17-Dec-2024 09:51, Nonspecific T wave abnormality now evident in Anterolateral leads Confirmed by Marcel Richardson ([id number]) on 12/18/2024 5:41:14 PM Referred By: REFERRED SELF Confirmed By: Marcel Richardson
[2024-12-18] MEDS ORDERED: POLYETHYLENE (MIRALAX) 17 GM PACK PO PRN (18:15)
--- NOTE | 2024-12-18 18:44 | Electrocardiogram Report ---
Test Reason : Blood Pressure : */* mmHG Vent. Rate : 79 BPM Atrial Rate : 79 BPM P-R Int : 158 ms QRS Dur : 82 ms QT Int : 364 ms P-R-T Axes : 8 -16 -28 degrees QTcB Int : 417 ms Normal sinus rhythm Minimal voltage criteria for LVH, may be normal variant Nonspecific ST abnormality Abnormal ECG When compared with ECG of 17-Dec-2024 19:02, (unconfirmed) No significant change was found Confirmed by Marcel Richardson ([id number] on 12/18/2024 6:44:18 PM Referred By: REFERRED SELF Confirmed By: Marcel Richardson
[2024-12-18] MEDS: DOCUSATE SODIUM 100 MG CAP PO SCH (20:17)
[2024-12-19 06:52] LABS: Hematocrit (blood only) 38.1 % (37.0-47.0); Hemoglobin 13.4 g/dl (12.0-16.0); Mean Corpuscular Hemoglobin 33.2 pg (25.0-34.0); Mean Corpuscular Volume 94.3 fL (80.0-100.0); Platelet Count 227 K/uL (130-400); RDW Standard Deviation 42.5 fL (36.4-46.3); Red Blood Count 4.04 M/uL (4.20-5.40); White Blood Count 7.64 K/ul (4.8-10.8)
[2024-12-19 07:16] LABS: Anion Gap 7.0 (3-11); Blood Urea Nitrogen 19.0 mg/dl (6-23); Calcium 8.4 mg/dl (8.6-10.3); Carbon Dioxide 28.0 mmol/L (21-32); Chloride 97.0 mmol/L (98-107); Creatinine Clr Calc Pharmacy 122.3 ml/min; Glucose 96.0 mg/dl (70-99(Fasting)); Potassium 4.4 mmol/L (3.5-5.1); Sodium 132.0 mmol/L (136-145)
[2024-12-19] MEDS: MONTELUKAST SODIUM 10 MG TABLET PO SCH (07:58)
[2024-12-19] MEDS: CALCIUM 600MG + VIT D 400 IU TAB PO SCH (07:59)
--- NOTE | 2024-12-19 08:19 | XRay Report ---
EXAM: XR chest 1V portable CLINICAL HISTORY: eval pl effusions TECHNIQUE: An X-ray image of the chest is obtained in AP projection. COMPARISON: 12/17/2024. FINDINGS: Pulmonary Parenchyma: Interval stable, low-lying Port-A-Cath seen. Needs clinical correlation for repositioning. Interval new mild pleural reaction at the right side. Mild progression of the left pleural effusion. No pulmonary consolidation/collapse seen. Heart and Mediastinum: The cardiac shadow is enlarged in size. No mediastinal widening or masses. No hilar or mediastinal lymphadenopathy. Bony Thorax: Bony thorax appears intact without fractures or deformities. Soft Tissues: Soft tissues overlying the chest wall are unremarkable. IMPRESSION: 1. Interval stable, low-lying Port-A-Cath seen. Needs clinical correlation for repositioning. 2. Interval new mild pleural reaction at the right side. 3. Mild progression of the left pleural effusion. Electronically signed by Igor Huston 12-19-2024 08:19 AM
[2024-12-19] MEDS ORDERED: TPN/PPN CONSULT PHARMACY STA (12:01)
[2024-12-19] MEDS ORDERED: DEXTROSE 10% 1,000 ML IV PRN (12:01)
--- NOTE | 2024-12-19 12:05 | Pulmonology Progress Note ---
Date of Service December 19, 2024 Assessment & Plan (1) Bilateral chylothorax: Plan: Patient with bilateral chylothorax likely secondary to active lymphoma and thoracic duct obstruction. Bilateral triglyceride levels sent to confirm the diagnosis. Cytology negative bilaterally. Pathology from [facility] node biopsy at [facility] is inconclusive. I am highly suspicious that she has active lymphoma resulting in chylothorax disease from thoracic duct obstruction. She is having significant reaccumulation despite a low-fat diet. We had a lengthy discussion regarding TPN and PICC line placement to help reduce chylous production. Patient is agreeable to proceeding with a PICC line and TPN. Will perform ultrasound tomorrow and if there are significant effusions, proceed with thoracentesis. (2) Hypoxia: Plan: Still requiring supplemental oxygen likely related to pleural effusions and atelectasis. (3) Dyspnea on effort: Plan: Secondary to the above. (4) Lymphoma: Plan: Awaiting biopsy from lymph node. Thus far inconclusive. Flow cytometry pending. Plan Discussed extensively with patient, patient's , bedside RN and dietitian. Admission and Anticipated Discharge Date Admission Date: December 17, 2024 Subjective Patient shortness of breath is stable. She is requiring supplemental oxygen. She does remain on a low-fat diet. She denies any other complaints. Review of Systems Review of Systems: All systems reviewed & are unremarkable except as noted in HPI & below Physical Exam Physical Exam: Constitutional: Patient appears to be of their stated age. Patient is in no apparent distress. Patient is well-developed. Eyes: Pupils are equal round and reactive to light. Conjunctivae are normal. Anicteric sclera. Ears nose, mouth and throat: Mallampati class 2. Normal posterior oropharynx. Uvula is midline. Neck: Trachea is midline. Visual inspection is normal. Respiratory: Tachypnea improved. Improved aeration bilaterally. Minimal crackles. Cardiovascular: Regular rate and rhythm. No murmurs. No edema. Gastrointestinal: Normal bowel sounds, soft, nontender and nondistended. No hepatosplenomegaly noted. Musculoskeletal: No cyanosis. Patient is able to move all extremities. Strength is 5 out of 5 in the upper and lower extremities. Skin: No rashes, warm dry and intact. Neurologic: No obvious focal neurological deficits seen. Psychiatric: Alert and oriented x3 with a euthymic affect. Results & Data Results & Data Vital Signs (Past 12 Hours) Vital Signs Temp Pulse Pulse Pulse Resp BP Pulse Ox 12/19/24 11:04 37.0 C 83 16 111/78 93 12/19/24 08:59 94 H 12/19/24 08:59 12/19/24 07:46 36.9 C 85 18 115/80 93 12/19/24 02:56 36.7 C 91 H 17 133/93 95 O2 Del Method O2 Flow Rate 12/19/24 11:04 Nasal Cannula 3 12/19/24 08:59 12/19/24 08:59 Nasal Cannula 2 12/19/24 07:46 Nasal Cannula 3 12/19/24 02:56 Nasal Cannula 3 PG Care Time/CCT Total # of Minutes Spent Total Time Spent with Patient: Total time spent is greater than 50% in coordination of care (as documented) at patient's floor/unit and/or counseling patient: Coding Level of Care Code 39072 SUB INP/OBS CARE 3/50MIN Diagnoses Bilateral chylothorax J94.0 Hypoxia R09.02 Dyspnea on effort R06.09 Lymphoma C85.90
--- NOTE | 2024-12-19 12:12 | Hospitalist Progress Note ---
Date of Service December 19, 2024 Assessment & Plan (1) Cervical lymphadenopathy: (2) Pleural effusion: (3) Hypoxia: Plan The patient is a 64-year-old female who presented to the ED on 12/17/2024 with complaints of shortness of breath found to be in a acute hypoxic respiratory failure with bilateral large pleural effusions in setting of marginal B cell lymphoma. 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 Bilateral triglyceride levels sent to confirm the diagnosis- pending * Repeat CXR this morning interval stable, mild progression of left pleural effusion * Fluid reaccumulating despite low fat diet. Dr. Foote discussed TPN and PICC line placement to help reduce chylous production - patient agreeable * Ultrasound tomorrow and if significant effusions remain, may repeat thoracentesis Continue incentive spirometry for atelectasis Marginal B cell Lymphoma Initially diagnosed in 2019, completed R-CHOP chemo and was under observation. However, PET scans since Feb 2024 with increased activity Most recent PET scan from 11/26/2024 revealing further increase in the multiple metabolic active lymph nodes noted, underwent laparoscopic evaluation at [facility]) on 12/11/[address] Daniels, joaquim onc - patient recently underwent lap eval with biopsy of lymph node of abdomen, path pending. Follows with lymphoma specialist Dr. Montanez ([facility]) Recommends continue observation until triglyceride level results, then consult with Dr. Montanez for further recs Hx RA Managed on prednisone and methotrexate Hold methotrexate for now Resumed home Tylenol, Gabapentin Demand ischemia Trop 36 -> 28.5 on admission in setting of hypoxia, pleural effusions as above No chest pain or ECG changes DVT Ppx: SQ heparin Code status: FULL PCP: NELLI Romero Dispo: Admitted to PCU Care coordinated with Dr. Teran. I spent a total of 50 minutes coordinating, documenting, and providing care for this patient excluding time spent in the performance of separately billed services or time spent by another provider/QHP. Admission and Anticipated Discharge Date Admission Date: December 17, 2024 Supervising Physician Co-Signing Physician Notes Patient is seen and examined at bedside. States feeling better today. Patient and family reports some regurgitation with fluid intake. Patient admits to have nausea. No significant dyspnea at rest. Still has minimal cough. No other complaints today. Family at bedside. Physical Exam: Vitals signs as noted above General Appearance: Overweight, no apparent distress Head: normocephalic, Atraumatic Eyes: normal inspection, EOMI Neck: supple, Trachea midline Respiratory/Chest: Decreased breath sounds at bases, CTA, + Chemo-Port, no accessory muscle use Cardiovascular: S1, S2, No murmur Abdomen/GI:Soft, Non tender, Bowel sounds present Extremities/Musculoskeletal:normal inspection, 1+ edema Neurologic/Psych:AAOX3, grossly no focal neurological deficits Skin: normal color, warm Bilateral chylothorax Acute respiratory failure with hypoxia Likely secondary to B-cell lymphoma S/P B/L thoracentesis Follow-up pleural fluid studies Appreciate pulmonary input Also discussed with oncology as above Wean off of supplemental oxygen as able May need 2 step prior to discharge Continue low-fat diet Plan to start on TPN as recommended by pulmonary Consideration for repeat thoracentesis tomorrow Pleural fluid negative for malignancy. Pleural fluid culture negative to date for any infection I personally interviewed and examined the patient at bedside. I have reviewed the advanced practitioner's documentation on the date of service referred in note and agree with plan. Patient's care is coordinated with Joselyn Phillips PA-C. Please refer to the documentation above for details of patient's presentation and for discussion of other issues. I spent a total of 28 minutes coordinating, documenting, and providing care for this patient excluding time spent in the performance of separately billed services or time spent by another provider/QHP. Subjective Seen and examined in 239-2. Feeling better today, sitting up in bedside chair. SOB stable, remains on 3L NC. Having some difficulty with "keeping foods down" yesterday. Ate smaller meals for dinner without issue, tolerated swallowing pills this AM. No F/C, CP, nausea, abd pain, dysuria, diarrhea or constipation. Review of Systems Review of Systems: At least ten systems reviewed and negative except as noted in the HPI. Physical Exam Physical Exam: Gen: WD/WN, NAD, sitting in bedside chair, A&Ox3, appears comfortable HEENT: Normocephalic, atraumatic Lung: Decreased breath sounds at bilateral bases, crackles, no wheezes Heart: Regular rate, regular rhythm, trace BLE edema Abdomen: Soft, NT, ND +BS x 4 Skin: Warm, no rash Results & Data Results & Data Vital Signs (Past 12 Hours) Vital Signs Temp Pulse Pulse Pulse Resp BP Pulse Ox 12/19/24 11:04 37.0 C 83 16 111/78 93 12/19/24 08:59 94 H 12/19/24 08:59 12/19/24 07:46 36.9 C 85 18 115/80 93 12/19/24 02:56 36.7 C 91 H 17 133/93 95 O2 Del Method O2 Flow Rate 12/19/24 11:04 Nasal Cannula 3 12/19/24 08:59 12/19/24 08:59 Nasal Cannula 2 12/19/24 07:46 Nasal Cannula 3 12/19/24 02:56 Nasal Cannula 3 Laboratory Results Short CBC 12/19/24 Range/Units 06:22 WBC 7.64 (4.8-10.8) K/ul Hgb 13.4 (12.0-16.0) g/dl Hct 38.1 (37.0-47.0) % Plt Count 227 (130-400) K/uL BMP 12/19/24 06:22 Sodium 132 L Potassium 4.4 Chloride 97 L Carbon Dioxide 28 BUN 19 Creatinine 0.49 L Glucose 96 Calcium 8.4 L Diagnostic Findings Chest X-Ray 12/17/24 10:04 SINGLE VIEW CHEST CLINICAL HISTORY: Dyspnea FINDINGS: An AP, portable, upright chest radiograph is compared to study dated 06/16/2020. A right internal jugular central venous infusion port is new from previous. The tip of the catheter projects over the right atrium. The heart is enlarged. There is pulmonary vascular congestion with mild interstitial edema. There are layering pleural effusions with dependent consolidation. No pneumothorax is seen. The skeletal structures are osteopenic. The bony thorax is grossly intact. IMPRESSION: 1. Cardiomegaly without evidence of congestive failure and pulmonary edema. 2. Layering pleural effusions with dependent consolidation. ACT 112: Negative or not required by law. Electronically signed by: Paramjit Samayoa M.D. 12/17/2024 10:53 AM Abdomen/Pelvis CT 12/17/24 10:05 CT angio chest PE protocol, CT abd pelvis IV con only HISTORY: 64 years-old Female with SOB, RECENT SURGERY. Acute shortness of breath TECHNIQUE: Multiple CTA images of the chest were obtained after the intravenous administration of 119 ml Optiray. Coronal and sagittal MIPS were obtained from the axial data set and were submitted for review. CT abdomen and pelvis with IV contrast only also obtained. All measurements were obtained according to NASCET criteria. A dose lowering technique was utilized adhering to the principles of ALARA. COMPARISON: CT neck 10/12/2024 FINDINGS: CTA: Heart is mildly enlarged. No pericardial effusion. No thoracic aortic aneurysm. No pulmonary emboli are seen. CT CHEST: No thyroid nodule. Left supraclavicular lymph nodes measure up to 2.4 x 1.3 cm, image 190 series 4. These previously measured up to 1.7 x 0.6 cm. Pathologic left subpectoral and axillary lymph nodes measure up to 2.6 x 1.8 cm on image 136. 1.9 x 1.4 cm right retrocrural lymph node on image 14 series 4. 1.5 x 1.0 cm a lymph node adjacent to the posterior midesophagus on image 121. Borderline enlarged subcarinal and hilar lymph nodes. Large pleural effusions. No pneumothorax. Azygos lobe and fissure. Volume loss with compressive atelectasis of the lungs. No suspicious pulmonary nodules or masses identified. Central airways are patent. Nonspecific wall thickening of the mid to distal esophagus which is partially debris-filled. Fluid surrounds the esophagus-recommend hiatus. Unremarkable soft tissues. No breast mass identified on this study. No acute fracture or destructive bone lesion identified. Subcentimeter sclerotic focus of the sternal manubrium on image 152 series 4 is unchanged. Right scapular sclerotic foci measure up to 1.3 cm. These are nonspecific. CT ABDOMEN/PELVIS: No pneumatosis or pneumoperitoneum. Unremarkable spleen. The pancreas is unremarkable with a punctate calcification of the uncinate process. Possible small gallstone within the gallbladder neck. Gallbladder is otherwise unremarkable. Liver is within normal limits. Patent portal vein. 11 mm cyst of the superior pole left kidney. No hydronephrosis. Mild nonspecific urinary bladder wall thickening. No adnexal mass lesions. Atherosclerosis of the aorta. 1.4 x 0.9 cm aortocaval lymph node on image 159 series 6. Right retrocrural lymphadenopathy as above. Left inguinal chain lymph nodes measure up to 9 mm. Duodenal diverticula. Trace abdominal pelvic ascites. Body wall edema. Mild colonic diverticulosis without acute diverticulitis. The majority of the large bowel is decompressed. Normal appendix. No acute fracture. Lumbar levoscoliosis. No suspicious bone lesions. IMPRESSION: 1. No pulmonary emboli identified. 2. Large pleural effusions with dependent compressive atelectasis of the lungs. 3. Pathologic left supraclavicular lymphadenopathy has progressed from the 10/12/2024 study. Additionally, there is pathologic left subpectoral, axillary, posterior mediastinal/retrocrural lymphadenopathy. If not already conducted, tissue sampling recommended. 4. No bowel obstruction or bowel wall thickening. 5. Debris within the mid esophagus with mild nonspecific mid to distal esophageal wall thickening. 6. Body wall edema with trace ascites. ACT 112: Negative or not required by law. The above report was generated using voice recognition software. It may contain grammatical, syntax or spelling errors. Electronically signed by: Al Haley M.D. 12/17/2024 11:49 AM Chest CTA 12/17/24 10:05 CT angio chest PE protocol, CT abd pelvis IV con only HISTORY: 64 years-old Female with SOB, RECENT SURGERY. Acute shortness of breath TECHNIQUE: Multiple CTA images of the chest were obtained after the intravenous administration of 119 ml Optiray. Coronal and sagittal MIPS were obtained from the axial data set and were submitted for review. CT abdomen and pelvis with IV contrast only also obtained. All measurements were obtained according to NASCET criteria. A dose lowering technique was utilized adhering to the principles of ALARA. COMPARISON: CT neck 10/12/2024 FINDINGS: CTA: Heart is mildly enlarged. No pericardial effusion. No thoracic aortic aneurysm. No pulmonary emboli are seen. CT CHEST: No thyroid nodule. Left supraclavicular lymph nodes measure up to 2.4 x 1.3 cm, image 190 series 4. These previously measured up to 1.7 x 0.6 cm. Pathologic left subpectoral and axillary lymph nodes measure up to 2.6 x 1.8 cm on image 136. 1.9 x 1.4 cm right retrocrural lymph node on image 14 series 4. 1.5 x 1.0 cm a lymph node adjacent to the posterior midesophagus on image 121. Borderline enlarged subcarinal and hilar lymph nodes. Large pleural effusions. No pneumothorax. Azygos lobe and fissure. Volume loss with compressive atelectasis of the lungs. No suspicious pulmonary nodules or masses identified. Central airways are patent. Nonspecific wall thickening of the mid to distal esophagus which is partially debris-filled. Fluid surrounds the esophagus-recommend hiatus. Unremarkable soft tissues. No breast mass identified on this study. No acute fracture or destructive bone lesion identified. Subcentimeter sclerotic focus of the sternal manubrium on image 152 series 4 is unchanged. Right scapular sclerotic foci measure up to 1.3 cm. These are nonspecific. CT ABDOMEN/PELVIS: No pneumatosis or pneumoperitoneum. Unremarkable spleen. The pancreas is unremarkable with a punctate calcification of the uncinate process. Possible small gallstone within the gallbladder neck. Gallbladder is otherwise unremarkable. Liver is within normal limits. Patent portal vein. 11 mm cyst of the superior pole left kidney. No hydronephrosis. Mild nonspecific urinary bladder wall thickening. No adnexal mass lesions. Atherosclerosis of the aorta. 1.4 x 0.9 cm aortocaval lymph node on image 159 series 6. Right retrocrural lymphadenopathy as above. Left inguinal chain lymph nodes measure up to 9 mm. Duodenal diverticula. Trace abdominal pelvic ascites. Body wall edema. Mild colonic diverticulosis without acute diverticulitis. The majority of the large bowel is decompressed. Normal appendix. No acute fracture. Lumbar levoscoliosis. No suspicious bone lesions. IMPRESSION: 1. No pulmonary emboli identified. 2. Large pleural effusions with dependent compressive atelectasis of the lungs. 3. Pathologic left supraclavicular lymphadenopathy has progressed from the 10/12/2024 study. Additionally, there is pathologic left subpectoral, axillary, posterior mediastinal/retrocrural lymphadenopathy. If not already conducted, tissue sampling recommended. 4. No bowel obstruction or bowel wall thickening. 5. Debris within the mid esophagus with mild nonspecific mid to distal esophageal wall thickening. 6. Body wall edema with trace ascites. ACT 112: Negative or not required by law. The above report was generated using voice recognition software. It may contain grammatical, syntax or spelling errors. Electronically signed by: Al Haley M.D. 12/17/2024 11:49 AM Chest X-Ray 12/17/24 15:05 XR chest 1V portable CLINICAL HISTORY: S/P right Thoracentesis COMPARISON STUDY: Chest radiograph and chest CT performed earlier today. FINDINGS: There is no pneumothorax following right thoracentesis. The right pleural effusion has markedly decreased in size. A large left pleural effusion is again noted. Cardiomediastinal silhouette is stable. Right internal jugular [id number] is in place. IMPRESSION: 1. No pneumothorax following right thoracentesis. Marked decrease in size of the right pleural effusion. 2. Large left pleural effusion. ACT 112: Negative or not required by law. Electronically signed by: Rafael Roe M.D. 12/17/2024 3:48 PM Chest X-Ray 12/17/24 16:16 EXAM: XR chest 1V portable CLINICAL HISTORY: s/p b/l thora. TECHNIQUE: An X-ray image of the chest is obtained in AP projection. COMPARISON: 06/16/2020. FINDINGS: Pulmonary Parenchyma: Lungs are clear bilaterally. No evidence of consolidation, collapse, or focal opacities. No pulmonary nodules are identified. Mild left-sided pleural effusion noted rising to the axilla. No evidence of right-sided pleural effusion or pleural thickening. Heart and Mediastinum: The cardiac silhouette couldn't be fully assessed. No mediastinal widening or masses. No hilar or mediastinal lymphadenopathy. Bony Thorax: Right-sided acromioclavicular osteoarthritis, the distal end of the clavicle is seen malformed, with the possibility of an old fracture. Soft Tissues: Pranav-cath is seen likely reaching the right ventricle, advise to reposition it for clinical correlation. IMPRESSION: 1. Mild left-sided pleural effusion (new finding). 2. Pranav-cath is seen likely reaching the right ventricle, advise to reposition it for clinical correlation (new finding). 3. Right-sided acromioclavicular osteoarthritis, the distal end of the clavicle is seen malformed, with the possibility of an old fracture (new finding). 4. No other interval changes. Electronically signed by Igor Huston 12-17-2024 5:38 PM Chest X-Ray 12/18/24 09:15 SINGLE VIEW CHEST CLINICAL HISTORY: Right-sided chest pain FINDINGS: An AP, portable, upright chest radiograph is compared to study dated 12/17/2024. A right internal jugular central venous infusion port is unchanged position. The heart is enlarged. There is pulmonary vascular congestion, which has worsened from yesterday. There are layering pleural effusions with dependent consolidation, left side larger than right. No pneumothorax is seen. The skeletal structures are osteopenic. The bony thorax is grossly intact. IMPRESSION: 1. Cardiomegaly with pulmonary vascular congestion. This has worsened from yesterday. 2. Left larger than right pleural effusions with dependent consolidation. ACT 112: Negative or not required by law. Electronically signed by: Paramjit Samayoa M.D. 12/18/2024 9:51 AM Chest X-Ray 12/18/24 14:59 TWO VIEW CHEST CLINICAL HISTORY: Right-sided chest pain FINDINGS: PA and lateral chest radiographs are compared to study performed earlier the same day 12/18/2024 and correlated with chest CT dated 12/17/2024. A right internal jugular central venous infusion port is unchanged in position. The heart is enlarged. There is mild pulmonary vascular congestion. There are layering pleural effusions with dependent consolidation. No pneumothorax is see n. The skeletal structures are osteopenic. The bony thorax is grossly intact. IMPRESSION: 1. Cardiomegaly. Mild pulmonary vascular congestion persists. 2. Layering pleural effusion with dependent consolidation. ACT 112: Negative or not required by law. Electronically signed by: Paramjit Samayoa M.D. 12/18/2024 3:52 PM Chest X-Ray 12/19/24 08:00 EXAM: XR chest 1V portable CLINICAL HISTORY: eval pl effusions TECHNIQUE: An X-ray image of the chest is obtained in AP projection. COMPARISON: 12/17/2024. FINDINGS: Pulmonary Parenchyma: Interval stable, low-lying Port-A-Cath seen. Needs clinical correlation for repositioning. Interval new mild pleural reaction at the right side. Mild progression of the left pleural effusion. No pulmonary consolidation/collapse seen. Heart and Mediastinum: The cardiac shadow is enlarged in size. No mediastinal widening or masses. No hilar or mediastinal lymphadenopathy. Bony Thorax: Bony thorax appears intact without fractures or deformities. Soft Tissues: Soft tissues overlying the chest wall are unremarkable. IMPRESSION: 1. Interval stable, low-lying Port-A-Cath seen. Needs clinical correlation for repositioning. 2. Interval new mild pleural reaction at the right side. 3. Mild progression of the left pleural effusion. Electronically signed by Igro Huston 12-19-2024 08:19 AM
[2024-12-19] MEDS ORDERED: Nursing to Pharmacy Communication SCH (12:15)
[2024-12-19] MEDS ORDERED: TPN/PPN CONSULT PHARMACY PRN (13:08)
[2024-12-19 13:25] LABS: Magnesium 2.0 mg/dl (1.7-2.4)
--- NOTE | 2024-12-19 14:44 | Pharmacy Report ---
Pharmacy Initial PN Consult Nt - Date of Service December 19, 2024 - Scope Pharmacy has been consulted on this date to manage parenteral nutrition orders and order appropriate labs. As part of the Nutrition Support Team Guidelines, pharmacy will work in conjunction with dietary when determining the patients c aloric needs. - Subjective * The patient is a 64 year old Female admitted on 12/17/24 for HYPOXIA. * Patient is to receive parenteral nutrition for chylothorax. * Pertinent PMHx: marginal B cell Lympoma - Objective Vascular Access: * Patient currently has a central line-PICC. Height & Weight (Last Documented) Height 5 ft 4 in Weight 82.7 kg Diet Order(s) 12/19/24 11:20 NPO Intake & Ouput (24hrs) 12/18/24 12/19/24 12/20/24 06:59 06:59 06:59 Intake Total 470.5 / 470.5 560.5 / 560.5 500 / 500 Output Total 3050 / 3050 Balance -2579.5 / -2579.5 560.5 / 560.5 500 / 500 Selected Laboratory Results 12/19/24 12/19/24 06:22 12:40 Sodium 132 L Potassium 4.4 Chloride 97 L Carbon Dioxide 28 Anion Gap 7 BUN 19 Creatinine 0.49 L BUN/Creatinine Ratio 38.8 H Glucose 96 Calcium 8.4 L Phosphorus 2.[address] - Follow Up Nutrition Assessment Start: 12/17/24 21:12 Freq: Status: Active Protocol: Document 12/19/24 12:29 WN (Rec: 12/19/24 12:41 WN [id number]) RD - Initial Nutrition Assessment Start: 12/17/24 20:44 Freq: Status: Active Protocol: Document 12/17/24 20:45 KK (Rec: 12/17/24 21:12 KK [id number]) - Assessment & Plan Assessment: * Appreciate dietitians recommendations for macronutrients. * Starting with PPN today since Dr. Foote hesitant to use port with current condition and need PICC access. IV team was able to attain PICC access this afternoon, ok to run PPN through central line today and switch to central Clinimix formulation tomorrow. * About 80% of goal macros today (max PPN amount), can advance to goal tomorrow with central formulation. * Noted sodium low, corrected calcium WNL, otherwise electrolytes WNL. Noted limitations to electrolytes with PPN Clinimix formulation, standard electrolytes and approx 0.8% NS in PPN formulation started today. Plan: * For Day #1 of PPN administration, the following will be ordered: * Macronutrients: * Amino Acids: 85 grams/day * Dextrose: 100 grams/day * Lipids: 50 grams/day * Micronutrients: * TPN electrolytes: 40 mL/day - Contains 35 mEq Na, 20 mEq K, 4.5 mEq Ca, 5 mEq Mg, 35 mEq Cl, 29.5 mEq Acetate per 20 mL * Sodium chloride: 50 mEq/day * Potassium phosphate: 15 mMol/day * Multivitamins: 10 mL/day * Trace elements: 1 mL/day * Thiamine: 100 mg/day * Total volume of 2077 mL (plus 250mL lipids) will be infused over 24 hours and will provide 1180 kcal/day * Labs will be ordered per PN protocol. * Pharmacy will follow and adjust PN orders on a daily basis. Thank you!
[2024-12-19] MEDS: [UNRECOGNIZED DRUG - OTHER] IV SCH (16:27)
[2024-12-19] MEDS: PERIPHERAL TPN IV SCH (16:27)
[2024-12-19] MEDS: CLINOLIPID 20% IV FAT EMULSION 250 ML IV SCH (16:27)
[2024-12-19] MEDS: STOP CLINOLIPID SCH (22:00)
[2024-12-20 07:34] LABS: Anion Gap 7.0 (3-11); Bilirubin,Total 0.4 mg/dl (0.2-1.0); Blood Urea Nitrogen 20.0 mg/dl (6-23); Calcium 8.2 mg/dl (8.6-10.3); Carbon Dioxide 28.0 mmol/L (21-32); Chloride 99.0 mmol/L (98-107); Creatinine Clr Calc Pharmacy 130.5 ml/min; Glucose 106.0 mg/dl (70-99(Fasting)); Magnesium 1.9 mg/dl (1.7-2.4); Potassium 3.6 mmol/L (3.5-5.1); Sodium 134.0 mmol/L (136-145)
--- NOTE | 2024-12-20 07:35 | Hospitalist Progress Note ---
Date of Service December 20, 2024 Assessment & Plan (1) Cervical lymphadenopathy: (2) Pleural effusion: (3) Hypoxia: Plan The patient is a 64-year-old female who presented to the ED on 12/17/2024 with complaints of shortness of breath found to be in a acute hypoxic respiratory failure with bilateral large pleural effusions in setting of marginal B cell lymphoma. 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 Bilateral triglyceride levels sent to confirm the diagnosis- pending * Repeat cytology sent 12/20 * Repeat CXR 12/19 interval stable, mild progression of left pleural effusion * Fluid reaccumulating despite low fat diet. * TPN and PICC line placed on 12/19 to help reduce chylous production . Keep NPO. * L Pleur-X catheter placed 12/20; possible R Pleur-X 12/21 depending on fluid accumulation * Per discussion with Pulm on 12/20; start Octreotide 100 mg SQ TID * Increase frequency of lab monitoring as high risk for electrolyte imbalance; BMP, Mg+, Phos+ Q8 * If no improvement over next 48-72, may need to consider Lymphadenography under IR ([facility] or [facility]) depending on resources. Continue incentive spirometry for atelectasis Marginal B cell Lymphoma Initially dx 2019, completed R-CHOP chemo and was under observation. However, PET scans since Feb 2024 with increased activity Most recent PET scan from 11/26/2024 revealing further increase in the multiple metabolic active lymph nodes noted, underwent laparoscopic evaluation at [facility]) on 12/11/[address] Daniels, joaquim onc - patient recently underwent lap eval with biopsy of lymph node of abdomen, path pending. Follows with lymphoma specialist Dr. Montanez ([facility]) Recommends continue observation until triglyceride level results, then consult with Dr. Montanez for further recs Hx RA Managed on prednisone and methotrexate Hold methotrexate for now Resumed home Tylenol, Gabapentin Demand ischemia Trop 36 -> 28.5 on admission in setting of hypoxia, pleural effusions as above No chest pain or ECG changes DVT Ppx: SQ heparin Code status: FULL PCP: NELLI Romero Dispo: Admitted to PCU I spent a total of 62 minutes coordinating, documenting, and providing care for this patient excluding time spent in the performance of separately billed services or time spent by another provider/QHP. Care coordinated with Dr. Teran. . Admission and Anticipated Discharge Date Admission Date: December 17, 2024 Supervising Physician Co-Signing Physician Notes Patient is seen and examined at bedside. Subjectively feels about the same as yesterday. Still have some cough with some expectoration. Patient had Pleurx catheter placement today. Discussed with patient's family at bedside. . Physical Exam: Vitals signs as noted above General Appearance: Overweight, no apparent distress Head: normocephalic, Atraumatic Eyes: normal inspection, EOMI Neck: supple, Trachea midline Respiratory/Chest: Decreased breath sounds at bases, + basal crackles, , + Chemo-Port, no accessory muscle use Cardiovascular: S1, S2, No murmur Abdomen/GI:Soft, Non tender, Bowel sounds present Extremities/Musculoskeletal:normal inspection, 1+ edema Neurologic/Psych:AAOX3, grossly no focal neurological deficits Skin: normal color, warm Recurrent Bilateral chylothorax Acute respiratory failure with hypoxia Likely secondary to B-cell lymphoma S/P B/L thoracentesis S/P Left Pleurx catheter placement on 12/20/2024 Appreciate pulmonary help Wean off of supplemental oxygen as able May need 2 step prior to discharge Continue TPN, bowel rest Pleural fluid cytology negative for malignancy. Pleural fluid culture negative to date for any infection Pathology from lymph node biopsy at [facility] is inconclusive Patient may need need lymphangiography and possible embolization Pleural fluid studies for triglyceride pending Plan to be started on octreotide today I personally interviewed and examined the patient at bedside. I have reviewed the advanced practitioner's documentation on the date of service referred in note and agree with plan. Patient's care is coordinated with Lexii GOMEZ. Please refer to the documentation above for details of patient's presentation and for discussion of other issues. I spent a total of27 minutes coordinating, documenting, and providing care for this patient excluding time spent in the performance of separately billed services or time spent by another provider/QHP. Subjective Pt sitting in her hospital bed, tearful. She feels like 'nothing is right' and 'this wont work'. Reassurance provided; certain treatment (TPN) just started yesterday Pt c/o SOB intermittently, on 6LNC. Procedure, pleur-x placed at bedside today. Denies chest pain, dizziness, abdominal pain/tenderness. See A/P for further details. Review of Systems Review of Systems: Neuro: (-) Falls, trauma, slurred speech HEENT: (-) ABBOTT, dizziness, dysphagia, visual or auditory changes CV: (-) CP, palpitations, swelling Resp: (+) SOB (+) cough GI: (-) appetite changes, N/V/D, bowel changes : (-) urinary changes Skin: (-) rashes Psych: (-) anxiety, depression Physical Exam Physical Exam: Neuro: AAOx4, PERRLA, no aphagia, memory changes, CNII-XII grossly intact HEENT: head normocephalic, moist mucus membranes CV: S1/S2, (-) M/G/R, (-) edema, cap refill < 3 seconds Resp: Lungs with crackles throughout. GI: Abdomen S/NT/ND, Ax4 bowel sounds, (-) CVA tenderness Musculoskeletal: 5/5 B/L UE strength, 5/5 B/L LE strength. No gait disturbance Skin: (-) rashes , (-) erythema. Psych: euthymic mood Results & Data Results & Data Vital Signs (Past 12 Hours) Vital Signs Temp Pulse Pulse Resp BP Pulse Ox O2 Del Method 12/20/24 07:16 36.8 C 89 17 101/63 91 Nasal Cannula 12/20/24 07:15 78 12/20/24 03:04 36.8 C 83 17 123/75 94 Nasal Cannula 12/19/24 23:11 37.1 C 86 16 101/66 93 Nasal Cannula 12/19/24 21:41 92 H O2 Flow Rate 12/20/24 07:16 3 12/20/24 07:15 12/20/24 03:04 3 12/19/24 23:11 3 12/19/24 21:41 Laboratory Results BMP 12/20/24 12/20/24 06:26 12:23 Sodium 134 L 133 L Potassium 3.6 4.8 D Chloride 99 99 Carbon Dioxide 28 28 BUN 20 21 Creatinine 0.45 L 0.54 L Glucose 106 H 140 H Calcium 8.2 L 8.6 Liver Function 12/20/24 Range/Units 06:26 Total Bilirubin 0.4 (0.2-1.0) mg/dl Diagnostic Findings Chest X-Ray 12/20/24 11:41 EXAM: Radiograph of the Chest 1 View INDICATION: Line placement. TECHNIQUE: Frontal view of the chest. Image obtained at 11:48 AM. COMPARISON: 12/19/2024 FINDINGS: Lungs and pleural spaces: There is a small left basilar and trace left apical pneumothorax. Stable bilateral basilar airspace consolidation. Decrease left pleural effusion. Stable small right pleural effusion. Heart: Shape and configuration within normal limits allowing for technique. Mediastinum: Normal contour. Bones/joints: No fracture, erosion or dislocation. Soft tissues: No abnormality noted. No radiopaque foreign body noted. Tubes, lines and devices: Right percutaneous venous catheter terminates at approximately 3.5 cm distal to the cavoatrial junction. Right internal jugular port catheter tip terminates in the distal SVC. Left chest tube present. Upper abdomen: No abnormality noted. IMPRESSION: 1. There is a small left basilar and trace left apical pneumothorax. 2. Stable bilateral basilar airspace consolidation. 3. Lines and tubes as above. ACT 112: N/A Electronically signed by Pamela Bloom 12-20-2024 12:13 PM
[2024-12-20] MEDS: HYDROmorphone INJ 0.5 MG/0.5 ML SYR ONE ×2 (11:36→11:51)
[2024-12-20] MEDS: HYDROmorphone INJ 0.5 MG/0.5 ML SYR IV STA ×2 (11:41→13:23)
[2024-12-20] MEDS: LIDOCAINE 2% LOCAL 50 ML VIAL ONE (11:52)
--- NOTE | 2024-12-20 11:54 | Procedure Note ---
Procedure Note Date of Service December 20, 2024 PREOPERATIVE DIAGNOSIS: Recurrent left chylothorax POSTOPERATIVE DIAGNOSIS: Recurrent left chylothorax PROCEDURE PERFORMED: Left PleurX catheter placement. Indication: Recurrent left chylothorax Consent: Signed by patient and verified with timeout prior to procedure. Anesthesia: 15 mL's 2% lidocaine without epinephrine locally. Activity Therapy Specialist: Dr. Rodger Foote Estimated blood loss: Less than 5 mL Procedure: Appropriate radiographic films had been reviewed prior to commencement of the procedure. Risks and benefits were again discussed with patient and consent was verified. The patient was placed in the right up lateral decubitus position. Limited t horacic ultrasound was performed which revealed a moderate to large size left effusion with compressive atelectasis. Site appropriate for the pleurotomy was marked. Skin was prepped and draped in normal sterile fashion. Using 1% lidocaine, the skin and soft tissues down to the pleura were anesthetized. A tract extending approximately 8 to 10 cm anteriorly from the pleurotomy site was also infiltrated and a site appropriate for the exit of the Pleurx catheter was marked. A 1 cm skin laurie was made at the posterior site. The catheter over the needle apparatus was advanced into the pleural space with pleural fluid easily aspirated. A wire was passed through the catheter after the needle was removed. The Pleurx catheter was then loaded on the tunneling device. A 1cm skin incision was made at the anterior catheter exit site. The tunneling device with the attached Pleurx catheter were passed from the anterior incision back to the posterior incision until the cuff of the Pleurx catheter resided within the subcutaneous tissues. The catheter was palpated along its course and no kinking was identified. Serial dilatation was then performed over the wire with the pull-away catheter being left in place. The Pleurx was removed from the tunneling mechanism and advanced through the peel-away catheter. The catheter sheath was then peeled back as the Pleurx catheter was advanced into the pleural space. The Pleurx catheter course was palpated and no kinks were felt. It was attached to wall suction and a total of 850 mL's was removed. Using 1-0 silk, 2 stitches were placed at the exit Pleurx site and the catheter secured in place. 2 small Vicryl sutures were used to close the posterior incision. A sterile dressing was applied. 850 mL of fluid was evacuated from the pleural space and sent to the lab for flow cytometry, cultures and cytology. Postprocedure basilar pneumothorax noted. Will place the patient to suction at -10 cm of water and repeat a chest x-ray tomorrow morning. [facility] [place]odes (Charges) Pulmonary/Thoracic Procedure 1: Pulmonary and Thoracic: 24627 Insert pleural cathereter w/cuff Procedure 2: Pulmonary and Thoracic: 05678 US, Chest, real time with imaging documentation Coding CPT Codes Pulmonary/Thoracic - Pulmonary and Thoracic: 19416 Insert pleural cathereter w/cuff ([id number]) Pulmonary/Thoracic - Pulmonary and Thoracic: 79284 US, Chest, real time with imaging documentation ([id number]) Additional Codes Date of Service ([facility].SURGERY)
--- NOTE | 2024-12-20 12:12 | Pulmonology Progress Note ---
Date of Service December 20, 2024 Assessment & Plan (1) Bilateral chylothorax: Plan: Patient with bilateral chylothorax likely secondary to active lymphoma and thoracic duct obstruction. Bilateral triglyceride levels sent to confirm the diagnosis. Cytology negative bilaterally. Pathology from lymph node biopsy at [facility] is inconclusive. I am highly suspicious that she has active lymphoma resulting in chylothorax disease from thoracic duct obstruction. She is having significant reaccumulation despite a low-fat diet. We had a lengthy discussion regarding TPN and PICC line placement to help reduce chylous production. PICC line was placed 12/19/2024 and TPN was initiated. I performed a pleural ultrasound bilaterally 12/20/2024 and there was significant reaccumulation of pleural fluid on the left mild to moderate reaccumulation on the right. I had a lengthy discussion with the patient regarding drainage and she opted for Pleurx catheter on the left at this time. Hopefully the TPN will help resolve or reduce the output and the Pleurx catheter will be needed only temporarily. We may need to consider a thoracentesis or Pleurx catheter on the right in the next day or 2 depending on her clinical course. Ultimately, I think treating the underlying cause will be the most important thing for definitive management and I am highly suspicious as above for recurrence of lymphoma or transformation to a more aggressive lymphoma. If no recurrence or more aggressive lymphoma is identified, she may need lymphangiography at a tertiary center and possible embolization. I did send the pleural fluid from today for flow cytometry, cytology and cultur es. Okay to restart chemical DVT prophylaxis tomorrow. (2) Hypoxia: Plan: Oxygen requirements have increased probably due to bilateral effusions and atelectasis. She is also having more of a cough with sputum production. Will start cefepime for possible hospital-acquired pneumonia. (3) Dyspnea on effort: Plan: Secondary to the above. (4) Lymphoma: Plan: Awaiting biopsy from lymph node. Thus far inconclusive. Flow cytometry pending. (5) Acute pneumonia: Plan: Patient was possible hospital-acquired pneumonia giving worsening hypoxia, cough and sputum production. Check procalcitonin and sputum culture. Start cefepime and azithromycin. Check MRSA swab. Check urine Legionella antigen. Plan Discussed extensively with patient, patient's , patient's son, bedside RN and hospitalist service. Admission and Anticipated Discharge Date Admission Date: December 17, 2024 Subjective Patient having more shortness of breath today with cough and sputum production. Review of Systems Review of Systems: All systems reviewed & are unremarkable except as noted in HPI & below Physical Exam Physical Exam: Constitutional: Patient appears to be of their stated age. Patient is in no apparent distress. Patient is well-developed. Eyes: Pupils are equal round and reactive to light. Conjunctivae are normal. Anicteric sclera. Ears nose, mouth and throat: Mallampati class 2. Normal posterior oropharynx. Uvula is midline. Neck: Trachea is midline. Visual inspection is normal. Respiratory: Increasing crackles bilaterally. Mild tachypnea. Cardiovascular: Regular rate and rhythm. No murmurs. No edema. Gastrointestinal: Normal bowel sounds, soft, nontender and nondistended. No hepatosplenomegaly noted. Musculoskeletal: No cyanosis. Patient is able to move all extremities. Strength is 5 out of 5 in the upper and lower extremities. Skin: No rashes, warm dry and intact. Neurologic: No obvious focal neurological deficits seen. Psychiatric: Alert and oriented x3 with a euthymic affect. Results & Data Results & Data Vital Signs (Past 12 Hours) Vital Signs Temp Pulse Pulse Resp BP Pulse Ox O2 Del Method 12/20/24 11:57 36.8 C 83 18 106/70 91 Nasal Cannula 12/20/24 08:00 Nasal Cannula 12/20/24 07:16 36.8 C 89 17 101/63 91 Nasal Cannula 12/20/24 07:15 78 12/20/24 03:04 36.8 C 83 17 123/75 94 Nasal Cannula O2 Flow Rate 12/20/24 11:57 6 12/20/24 08:00 3 12/20/24 07:16 3 12/20/24 07:15 12/20/24 03:04 3 PG Care Time/CCT Total # of Minutes Spent Total Time Spent with Patient: Total time spent is greater than 50% in coordination of care (as documented) at patient's floor/unit and/or counseling patient: Coding Level of Care Code 77947 SUB INP/OBS CARE 3/50MIN Diagnoses Bilateral chylothorax J94.0 Hypoxia R09.02 Dyspnea on effort R06.09 Lymphoma C85.90 Acute pneumonia J18.9
--- NOTE | 2024-12-20 12:13 | XRay Report ---
EXAM: Radiograph of the Chest 1 View INDICATION: Line placement. TECHNIQUE: Frontal view of the chest. Image obtained at 11:48 AM. COMPARISON: 12/19/2024 FINDINGS: Lungs and pleural spaces: There is a small left basilar and trace left apical pneumothorax. Stable bilateral basilar airspace consolidation. Decrease left pleural effusion. Stable small right pleural effusion. Heart: Shape and configuration within normal limits allowing for technique. Mediastinum: Normal contour. Bones/joints: No fracture, erosion or dislocation. Soft tissues: No abnormality noted. No radiopaque foreign body noted. Tubes, lines and devices: Right percutaneous venous catheter terminates at approximately 3.5 cm distal to the cavoatrial junction. Right internal jugular port catheter tip terminates in the distal SVC. Left chest tube present. Upper abdomen: No abnormality noted. IMPRESSION: 1. There is a small left basilar and trace left apical pneumothorax. 2. Stable bilateral basilar airspace consolidation. 3. Lines and tubes as above. ACT 112: N/A Electronically signed by Pamela Bloom 12-20-2024 12:13 PM
[2024-12-20] MEDS: ALBUMIN 5% 250 ML IV ONE (12:20)
[2024-12-20] MEDS: HYDROmorphone INJ 0.5 MG/0.5 ML SYR IV ONE (12:20)
[2024-12-20] MEDS: AZITHROMYCIN 500 MG/255 ML BAG IV ONE (12:58)
[2024-12-20 13:14] LABS: Anion Gap 6.0 (3-11); Blood Urea Nitrogen 21.0 mg/dl (6-23); Calcium 8.6 mg/dl (8.6-10.3); Carbon Dioxide 28.0 mmol/L (21-32); Chloride 99.0 mmol/L (98-107); Creatinine Clr Calc Pharmacy 108.7 ml/min; Glucose 140.0 mg/dl (70-99(Fasting)); Magnesium 2.1 mg/dl (1.7-2.4); Potassium 4.8 mmol/L (3.5-5.1); Sodium 133.0 mmol/L (136-145)
[2024-12-20] MEDS: CEFEPIME 2000MG 2,000 MG/20 ML SYR IV SCH (13:23)
[2024-12-20] MEDS: OCTREOTIDE ACETATE 100 MCG/ML VIAL SQ SCH (14:48)
[2024-12-20 15:00] LABS: Anion Gap 4.0 (3-11); Blood Urea Nitrogen 20.0 mg/dl (6-23); Calcium 7.9 mg/dl (8.6-10.3); Carbon Dioxide 27.0 mmol/L (21-32); Chloride 100.0 mmol/L (98-107); Creatinine Clr Calc Pharmacy 122.3 ml/min; Glucose 182.0 mg/dl (70-99(Fasting)); Magnesium 1.9 mg/dl (1.7-2.4); Potassium 4.1 mmol/L (3.5-5.1); Sodium 131.0 mmol/L (136-145)
[2024-12-20] MEDS: [UNRECOGNIZED DRUG - OTHER] IV SCH (15:17)
[2024-12-20] MEDS: CENTRAL TPN IV SCH (15:17)
[2024-12-20] MEDS: CLINOLIPID 20% IV FAT EMULSION 250 ML IV SCH (15:18)
[2024-12-20] MEDS: CALCIUM GLUCONATE 1,000 MG/60 ML BAG IV SCH (16:44)
[2024-12-20 22:35] LABS: Anion Gap 5.0 (3-11); Calcium 8.2 mg/dl (8.6-10.3); Carbon Dioxide 24.0 mmol/L (21-32); Chloride 103.0 mmol/L (98-107); Magnesium 1.9 mg/dl (1.7-2.4); Potassium 4.6 mmol/L (3.5-5.1); Sodium 132.0 mmol/L (136-145)
[2024-12-20 22:40] LABS: Blood Urea Nitrogen 22.0 mg/dl (6-23); Creatinine Clr Calc Pharmacy 133.4 ml/min; Glucose 169.0 mg/dl (70-99(Fasting))
[2024-12-21] MEDS: STOP CLINOLIPID SCH (04:00)
[2024-12-21 06:51] LABS: Anion Gap 6.0 (3-11); Blood Urea Nitrogen 24.0 mg/dl (6-23); Calcium 8.1 mg/dl (8.6-10.3); Carbon Dioxide 26.0 mmol/L (21-32); Chloride 102.0 mmol/L (98-107); Creatinine Clr Calc Pharmacy 152.7 ml/min; Glucose 157.0 mg/dl (70-99(Fasting)); Magnesium 2.0 mg/dl (1.7-2.4); Potassium 4.4 mmol/L (3.5-5.1); Sodium 134.0 mmol/L (136-145)
[2024-12-21 07:17] LABS: Hemoglobin A1C 5.6 % (4.5-5.6)
--- NOTE | 2024-12-21 07:30 | Hospitalist Progress Note ---
Date of Service December 21, 2024 Assessment & Plan (1) Cervical lymphadenopathy: (2) Pleural effusion: (3) Hypoxia: Plan The patient is a 64-year-old female who presented to the ED on 12/17/2024 with complaints of shortness of breath found to be in a acute hypoxic respiratory failure with bilateral large pleural effusions in setting of marginal B cell lymphoma. 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 Bilateral triglyceride levels sent to confirm the diagnosis- pending * Repeat cytology sent 12/20 * Repeat CXR 12/19 interval stable, mild progression of left pleural effusion * Fluid reaccumulating despite low fat diet. * TPN and PICC line placed on 12/19 to help reduce chylous production . Keep NPO. * L Pleur-X catheter placed 12/20; possible R Pleur-X 12/21 depending on fluid accumulation * Per discussion with Pulm on 12/20; start Octreotide 100 mg SQ TID * Increase frequency of lab monitoring as high risk for electrolyte imbalance; BMP, Mg+, Phos+ Q8 * If no improvement over next 48-72, may need to consider Lymphadenography under IR ([facility] or [place]) depending on resources. transfer initiated by abdoulaye cohn 12/22. Dr. 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 However, PET scans since Feb 2024 with increased activity Most recent PET scan from 11/26/2024 revealing further increase in the multiple metabolic active lymph nodes noted, underwent laparoscopic evaluation at [facility]) on 12/11/[address] Daniels, joaquim onc - patient recently underwent lap eval with biopsy of lymph node of abdomen, path pending. Follows with lymphoma specialist Dr. Montanez ([facility]) Recommends continue observation until triglyceride level results; discuss with Dr. Montanez Given complexity, suspect she could benefit from Lymphadenography under IR ([facility] or [facility]) depending on resources. transfer initiated by abdoulaye lynn 12/22. Dr. Infante [phone] @ [facility] to confirm if they can do Lymphadenography or assume care for Car-T-Cell Therapy Hx RA Managed on prednisone and methotrexate Hold methotrexate for now Resumed home Tylenol, Gabapentin Demand ischemia Trop 36 -> 28.5 on admission in setting of hypoxia, pleural effusions as above No chest pain or ECG changes DVT Ppx: SQ heparin Code status: FULL PCP: NELLI Romero Dispo: Admitted to PCU I spent a total of 62 minutes coordinating, documenting, and providing care for this patient excluding time spent in the performance of separately billed services or time spent by another provider/QHP. Care coordinated with Dr. Kaitlin nolan. . Admission and Anticipated Discharge Date Admission Date: December 17, 2024 Supervising Physician Co-Signing Physician Notes Patient is seen and examined at bedside. States having pleuritic pain at catheter site. Discussed with patient's family at bedside. Also discussed with pulmonology today. No significant cough today. Patient prefers to avoid Pleurx catheter placement on right side today. Repeat imaging today showed no pneumothorax. Physical Exam: Vitals signs as noted above General Appearance: Overweight, no apparent distress Head: normocephalic, Atraumatic Eyes: normal inspection, EOMI Neck: supple, Trachea midline Respiratory/Chest: Decreased breath sounds at bases, + basal crackles, , + Chemo-Port, no accessory muscle use Cardiovascular: S1, S2, No murmur Abdomen/GI:Soft, Non tender, Bowel sounds present Extremities/Musculoskeletal:normal inspection, 1+ edema Neurologic/Psych:AAOX3, grossly no focal neurological deficits Skin: normal color, warm Recurrent Bilateral chylothorax Acute respiratory failure with hypoxia Likely secondary to B-cell lymphoma S/P B/L thoracentesis S/P Left Pleurx catheter placement on 12/20/2024 Small pneumothorax post Pleurx catheter placement seem to be resolved Appreciate pulmonary help Wean off of supplemental oxygen as able May need 2 step prior to discharge Continue TPN, bowel rest Pleural fluid cytology negative for malignancy. Pleural fluid culture negative to date for any infection Pathology from lymph node biopsy at [facility] is inconclusive Patient may need need lymphangiography and possible embolization Pleural fluid studies for triglyceride pending Continue octreotide Concern for recurrence of lymphoma or transformation to an aggressive lymphoma Follows with lymphoma specialist Dr. Montanez ([facility]):[phone] If no improvement with current management, plan to transfer to tertiary care facility for Lymphangiography and further management--possible embolization I personally interviewed and examined the patient at bedside. I have reviewed the advanced practitioner's documentation on the date of service referred in note and agree with plan. Patient's care is coordinated with Lexii GOMEZ. Please refer to the documentation above for details of patient's presentation and for discussion of other issues. I spent a total of28 minutes coordinating, documenting, and providing care for this patient excluding time spent in the performance of separately billed services or time spent by another provider/QHP. Subjective Pt seen as she is lying in her hospital bed, appearing miserable with grimaced brow and in tearful spirits. Pt and son at bedside. Pt able to get detailed information through my chart from other facilities; see A/P. Denies chest pain, dizziness, N/V/D. Feels her stomach is unsettled (likely from Octreotide) Feels more SOB, but is requiring less O2 and she sounds better today on auscultation. Pulmonary initiating transfer to tertiary care facility, see below. Review of Systems Review of Systems: Neuro: (-) Falls, trauma, slurred speech HEENT: (-) ABBOTT, dizziness, dysphagia, visual or auditory changes CV: (-) CP, palpitations, swelling Resp: (+) SOB (+) cough GI: (-) appetite changes, N/V/D, bowel changes : (-) urinary changes Skin: (-) rashes Psych: (-) anxiety, depression Physical Exam Physical Exam: Neuro: AAOx4, PERRLA, no aphagia, memory changes, CNII-XII grossly intact HEENT: head normocephalic, moist mucus membranes CV: S1/S2, (-) M/G/R, (-) edema, cap refill < 3 seconds Resp: Lungs decreased throughout. No crackles identified today. GI: Abdomen S/NT/ND, Ax4 bowel sounds, (-) CVA tenderness Musculoskeletal: 5/5 B/L UE strength, 5/5 B/L LE strength. No gait disturbance Skin: (-) rashes , (-) erythema. Psych: euthymic mood Results & Data Results & Data Vital Signs (Past 12 Hours) Vital Signs Temp Pulse Pulse Resp BP Pulse Ox O2 Del Method 12/21/24 02:36 36.5 C 76 17 109/76 98 Nasal Cannula 12/20/24 23:01 36.5 C 70 16 90/64 L 96 Nasal Cannula 12/20/24 22:00 73 12/20/24 20:00 Nasal Cannula 12/20/24 19:44 36.5 C 75 17 106/72 96 Nasal Cannula O2 Flow Rate 12/21/24 02:36 4 12/20/24 23:01 4 12/20/24 22:00 12/20/24 20:00 4 12/20/24 19:44 4 Laboratory Results BMP 12/20/24 12/20/24 12/21/24 14:18 21:58 05:29 Sodium 131 L 132 L 134 L Potassium 4.1 4.6 4.4 Chloride 100 103 102 Carbon Dioxide 27 24 26 BUN 20 22 24 H Creatinine 0.48 L 0.44 L 0.39 L Glucose 182 H 169 H 157 H Calcium 7.9 L 8.2 L 8.1 L Diagnostic Findings Chest X-Ray 12/21/24 07:00 EXAM: XR chest 1V portable CLINICAL HISTORY: Left effusion. TECHNIQUE: An X-ray image of the chest is obtained in AP projection. COMPARISON: 12/20/2024. FINDINGS: Pulmonary Parenchyma: Unchanged bilateral mild pleural effusion No evidence of lobar consolidation, collapse, or focal opacities. Unchanged right port-cath with tip in the right atrium. Heart and Mediastinum: Unchanged cardiomegaly. No mediastinal widening or masses. No hilar or mediastinal lymphadenopathy. Bony Thorax: Bony thorax appears intact without fractures or deformities. Soft Tissues: Soft tissues overlying the chest wall are unremarkable. IMPRESSION: 1. No gross interval change in comparison with 12/20/2024. 2. Unchanged bilateral mild pleural effusion. 3. Unchanged right port-cath with tip in the right atrium. Electronically signed by Igor Huston 12-21-2024 08:40 AM
[2024-12-21] MEDS: AZITHROMYCIN 250 MG in DEXTROSE 5% 250 ML IV SCH (08:27)
[2024-12-21] MEDS: ONDANSETRON INJ 2 MG/ML 2 ML VIAL ONE (08:27)
--- NOTE | 2024-12-21 08:41 | XRay Report ---
EXAM: XR chest 1V portable CLINICAL HISTORY: Left effusion. TECHNIQUE: An X-ray image of the chest is obtained in AP projection. COMPARISON: 12/20/2024. FINDINGS: Pulmonary Parenchyma: Unchanged bilateral mild pleural effusion No evidence of lobar consolidation, collapse, or focal opacities. Unchanged right port-cath with tip in the right atrium. Heart and Mediastinum: Unchanged cardiomegaly. No mediastinal widening or masses. No hilar or mediastinal lymphadenopathy. Bony Thorax: Bony thorax appears intact without fractures or deformities. Soft Tissues: Soft tissues overlying the chest wall are unremarkable. IMPRESSION: 1. No gross interval change in comparison with 12/20/2024. 2. Unchanged bilateral mild pleural effusion. 3. Unchanged right port-cath with tip in the right atrium. Electronically signed by Igor Huston 12-21-2024 08:40 AM
[2024-12-21] MEDS: ACETAMINOPHEN 1,000 MG/100 ML VIAL IV SCH (10:05)
--- NOTE | 2024-12-21 11:42 | Pulmonology Progress Note ---
Date of Service December 21, 2024 Assessment & Plan (1) Bilateral chylothorax: Plan: Patient with bilateral chylothorax likely secondary to active lymphoma and thoracic duct obstruction. Bilateral triglyceride levels sent to confirm the diagnosis. Cytology negative bilaterally. Pathology from lymph node biopsy at [facility] is inconclusive. I am highly suspicious that she has active lymphoma resulting in chylothorax disease from thoracic duct obstruction. She is having significant reaccumulation despite a low-fat diet. We had a lengthy discussion regarding TPN and PICC line placement to help reduce chylous production. PICC line was placed 12/19/2024 and TPN was initiated. I performed a pleural ultrasound bilaterally 12/20/2024 and there was significant reaccumulation of pleural fluid on the left mild to moderate reaccumulation on the right. I had a lengthy discussion with the patient regarding drainage and she opted for Pleurx catheter on the left at this time. Hopefully the TPN will help resolve or reduce the output and the Pleurx catheter will be needed only temporarily. We may need to consider a thoracentesis or Pleurx catheter on the right in the next day or 2 depending on her clinical course. Ultimately, I think treating the underlying cause will be the most important thing for definitive management and I am highly suspicious as above for recurrence of lymphoma or transformation to a more aggressive lymphoma. If no recurrence or more aggressive lymphoma is identified, she may need lymphangiography at a tertiary center and possible embolization. I did send the pleural fluid from 12/20/2024 for flow cytometry, cytology and cu ltures. (2) Hypoxia: Plan: Her oxygen requirements have improved since Pleurx catheter placement. (3) Dyspnea on effort: Plan: Secondary to the above. (4) Lymphoma: Plan: She has a history of MCL diagnosed on a posterior right auricular lymph node biopsy in December 2019. She was felt to have progressed to stage IV lymphoma with a Deauville score of 5 in February 2024. She was originally stage III. There has been concern of potential transformation of the lymphoma to a more aggressive type. She was treated initially with R-CHOP and then vincristine was taken away due to pre-existing neuropathy. There has been discussion of possible CAR-T cell therapy for the patient depending on the latest lymph node biopsy. Flow cytometry from retrocrural lymph node biopsy in [facility] was inconclusive. Further studies pending. (5) Acute pneumonia: Plan: Procalcitonin unremarkable. Doubtful of bacterial pneumonia, but will continue empiric antibiotics for 48 hours and then reassess. Plan Discussed extensively with patient, patient's , patient's son, bedside RN and hospitalist service. Admission and Anticipated Discharge Date Admission Date: December 17, 2024 Subjective Patient had a rough night last night with some pain from the Pleurx catheter site and insomnia symptoms. Her dyspnea has improved. She has some left leg cramping today. She denies any significant chest pain at this present time. TPN continues to infuse. She has been n.p.o. She denies any fevers or chills. Review of Systems Review of Systems: All systems reviewed & are unremarkable except as noted in HPI & below Physical Exam Physical Exam: Constitutional: Patient appears to be of their stated age. Patient is in no apparent distress. Patient is well-developed. Eyes: Pupils are equal round and reactive to light. Conjunctivae are normal. Anicteric sclera. Ears nose, mouth and throat: Mallampati class 2. Normal posterior oropharynx. Uvula is midline. Neck: Trachea is midline. Visual inspection is normal. Respiratory: Mild crackles in the right lung with improved aeration in the left lung. Minimal tachypnea. Cardiovascular: Regular rate and rhythm. No murmurs. No edema. Gastrointestinal: Normal bowel sounds, soft, nontender and nondistended. No hepatosplenomegaly noted. Musculoskeletal: No cyanosis. Patient is able to move all extremities. Strength is 5 out of 5 in the upper and lower extremities. Skin: No rashes, warm dry and intact. Left Pleurx catheter site clean dry and intact with sutures intact. There is bruising along the subcutaneous tract. Neurologic: No obvious focal neurological deficits seen. Psychiatric: Alert and oriented x3 with a euthymic affect. Results & Data Results & Data Vital Signs (Past 12 Hours) Vital Signs Temp Pulse Pulse Pulse Resp BP Pulse Ox 12/21/24 09:56 76 12/21/24 09:56 12/21/24 07:59 36.6 C 77 16 101/73 98 12/21/24 02:36 36.5 C 76 17 109/76 98 O2 Del Method O2 Flow Rate 12/21/24 09:56 12/21/24 09:56 Nasal Cannula 4 12/21/24 07:59 Nasal Cannula 4 12/21/24 02:36 Nasal Cannula 4 PG Care Time/CCT Total # of Minutes Spent Total Time Spent with Patient: Total time spent is greater than 50% in coordination of care (as documented) at patient's floor/unit and/or counseling patient: Coding Level of Care Code 10561 SUB INP/OBS CARE 3/50MIN Diagnoses Bilateral chylothorax J94.0 Hypoxia R09.02 Dyspnea on effort R06.09 Lymphoma C85.90 Acute pneumonia J18.9
[2024-12-21] MEDS: [UNRECOGNIZED DRUG - OTHER] IV SCH (15:39)
[2024-12-21] MEDS: CENTRAL TPN IV SCH (15:39)
[2024-12-21] MEDS: CLINOLIPID 20% IV FAT EMULSION 250 ML IV SCH (15:42)
[2024-12-21 21:25] LABS: Anion Gap 5.0 (3-11); Blood Urea Nitrogen 23.0 mg/dl (6-23); Calcium 8.2 mg/dl (8.6-10.3); Carbon Dioxide 26.0 mmol/L (21-32); Chloride 101.0 mmol/L (98-107); Creatinine Clr Calc Pharmacy 135.3 ml/min; Glucose 154.0 mg/dl (70-99(Fasting)); Potassium 4.4 mmol/L (3.5-5.1); Sodium 132.0 mmol/L (136-145)
[2024-12-21 23:34] LABS: Anion Gap 4.0 (3-11); Blood Urea Nitrogen 22.0 mg/dl (6-23); Calcium 8.1 mg/dl (8.6-10.3); Carbon Dioxide 27.0 mmol/L (21-32); Chloride 101.0 mmol/L (98-107); Creatinine Clr Calc Pharmacy 135.3 ml/min; Glucose 163.0 mg/dl (70-99(Fasting)); Magnesium 1.9 mg/dl (1.7-2.4); Potassium 4.4 mmol/L (3.5-5.1); Sodium 132.0 mmol/L (136-145)
[2024-12-22] MEDS ORDERED: HEPARIN 100 UNIT/ML 5ML FLUSH FLUSH PRN (02:42)
[2024-12-22 06:40] LABS: Hematocrit (blood only) 38.7 % (37.0-47.0); Hemoglobin 13.1 g/dl (12.0-16.0); Mean Corpuscular Hemoglobin 32.4 pg (25.0-34.0); Mean Corpuscular Volume 95.8 fL (80.0-100.0); Platelet Count 244 K/uL (130-400); RDW Standard Deviation 44.0 fL (36.4-46.3); Red Blood Count 4.04 M/uL (4.20-5.40); White Blood Count 6.71 K/ul (4.8-10.8)
[2024-12-22 06:56] LABS: Alanine Aminotransferase 9.0 U/L (7-52); Albumin Globulin Ratio 1.0 (0.9-2); Alkaline Phosphatase 33.0 U/L (34-104); Anion Gap 4.0 (3-11); Bilirubin,Total 0.3 mg/dl (0.2-1.0); Blood Urea Nitrogen 24.0 mg/dl (6-23); Calcium 8.0 mg/dl (8.6-10.3); Carbon Dioxide 28.0 mmol/L (21-32); Chloride 103.0 mmol/L (98-107); Creatinine Clr Calc Pharmacy 130.5 ml/min; Globulin 2.9 gm/dl (2.5-4.0); Glucose 116.0 mg/dl (70-99(Fasting)); Magnesium 2.0 mg/dl (1.7-2.4); Potassium 4.1 mmol/L (3.5-5.1); Sodium 135.0 mmol/L (136-145); Total Protein 5.7 gm/dl (6.0-8.3)
[2024-12-22 07:00] LABS: Anion Gap 5.0 (3-11); Blood Urea Nitrogen 24.0 mg/dl (6-23); Calcium 8.0 mg/dl (8.6-10.3); Carbon Dioxide 27.0 mmol/L (21-32); Chloride 103.0 mmol/L (98-107); Creatinine Clr Calc Pharmacy 127.7 ml/min; Glucose 119.0 mg/dl (70-99(Fasting)); Potassium 4.2 mmol/L (3.5-5.1); Sodium 135.0 mmol/L (136-145)
--- NOTE | 2024-12-22 09:05 | Pulmonology Progress Note ---
Date of Service December 22, 2024 Assessment & Plan (1) Bilateral chylothorax: (2) Hypoxia: Plan: Her oxygen requirements have improved since Pleurx catheter placement. (3) Dyspnea on effort: Plan: Secondary to the above. 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 CXR and CT chest showed large bilateral pleural effusions. Patient underwent bilateral thoracentesis on 12/20/24 concerning for chylothorax. 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 Bilateral triglyceride levels pending to confirm the diagnosis. Cytology negative bilaterally. Pathology from lymph node biopsy at [facility] is inconclusive. 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 She is having significant reaccumulation despite a low-fat diet with TPN. Bilateral thoracentesis performed 12/17/24. Repeat pleural ultrasound bilaterally on 12/20/2024 showed there was significant reaccumulation of pleural fluid on the left with mild to moderate reaccumulation on the right. Pleurx catheter placed 12/20/24. Thais drainage system discontinued 12/22 and Pleurx capped. Will follow intermittent drainage plan every other day or with significant symptoms. Ultimately, treating the underlying cause will be the most important thing for definitive management there is a high suspicion for recurrence of lymphoma or transformation to a more aggressive lymphoma. If no recurrence or more aggressive lymphoma is identified, she may need lymphangiography at a tertiary center and possible embolization. [facility] stated they could perform Lymphangiography in 1 weeks time. Pleural fluid 12/17/24 showed no bacterial growth. Pleural fluid from 12/20/2024 cultures preliminary negative. cytology pending. Lymphoma She has a history of MZL diagnosed on a posterior right auricular lymph node biopsy in December 2019. She was felt to have progressed to stage IV lymphoma with a Deauville score of 5 in February 2024. She was originally stage III. There has been concern of potential transformation of the lymphoma to a more aggressive type. She was treated initially with R-CHOP and then vincristine was taken away due to pre-existing neuropathy. There has been discussion of possible CAR-T cell therapy for the patient depending on the latest lymph node biopsy. Flow cytometry from retrocrural lymph node biopsy in [facility] was inconclusive. Further studies pending. Will reach out to Dr. Tom Montanez from [facility] regarding case and to see if he has any recommendations. Acute Pneumonia Procalcitonin unremarkable. Bacterial pneumonia less likely and antibiotics discontinued 12/22/24. If there is delay in getting lymphangiography could potentially discharge patient home with home health resources until patient can be evaluated by tertiary center. Thank you for allowing us to participate in this patient's care please feel free to reach put with questions or concerns. Admission and Anticipated Discharge Date Admission Date: December 17, 2024 Supervising Physician Co-Signing Physician Notes Patient seen and examined. EMR reviewed. Discussed with outgoing sawdust machine operator as well as with the nurse practitioner. Agree with assessment plan as noted. Patient is had clinical improvement associated with the removal of the fluid. She is not particularly symptomatic currently. Would continue Pleurx drainage on an every other day basis. Would hold off on sampling the contralateral side currently and dictate this based on recurrent clinical symptoms. Recommend assessment for supplemental oxygen prior to discharge. The patient can be evaluated at [facility] or [facility] in the outpatient setting for potential lymph angiogram if fails to resolve. Agree with outpatient TPN for bowel rest for now. Unclear if octreotide is going to offer a clinical benefit but can be continued for now if tolerating. From pulmonary perspective, the patient could likely be dismissed from the hospital. She will need to follow-up with Dr. Foote in the outpatient setting for suture removal in 5 to 7 days. If Pleurex catheter placement is to be considered on the contralateral side, this can be accomplished in the outpatient setting Disposition per primary service. Pulmonary will sign off at this point in time. Feel free to contact us with questions or concerns Subjective "I have back pain and around where the tube is." "My breathing isn't bad." SpO2 92-95% on 1L NC. Afebrile. WBC 6.71. Patient with left Pleurx catheter to Thais drainage system an put out 300ml of serous fluid in last 24hrs. Leslie drainage system discontinued this am and Pleurx capped. Will use intermittent drainage going forward every other day or with significant SOB/symptoms. [facility] returned call and stated that they could potentially perform lymphangiography in about 1 week. Will follow up with Dr. Montanez at [facility]. Patient could potentially go home with home health services until she can follow up with tertiary center. Review of Systems 2 Review of Systems: All systems reviewed & are unremarkable except as noted in HPI & below Physical Exam 2 Physical Exam: VITALS: Reviewed. WEIGHT/BMI reviewed. GEN: Stated age appearing, well-developed, lying in bed in NAD. PSYCH: Good Judgment. AOx3. Normal memory, mood, and affect. HEENT -Head: NC/AT; -Eyes: PERRL, EOMI. No discharge or redn ess; -Ears: External ears are normal. Normal TMs. -Nose: Normal nares. NECK: Supple, with no masses. CV: RRR, no m/r/g. LUNGS: Clear in b/l upper lobes and diminished in b/l lower lobes. Chest rise symmetrical. Breathing nonlabored. ABD: Soft, NT/ND, NBS, no masses or organomegaly. : Voiding SKIN: Warm, well perfused. No skin rashes or abnormal lesions. MSK: No deformities, Normal gait. EXT: No clubbing, cyanosis, or edema. NEURO: Normal muscle strength and tone. No focal deficits. Face symmetric. Speech Clear. Results & Data Results & Data Vital Signs (Past 12 Hours) Vital Signs Temp Pulse Pulse Resp BP Pulse Ox O2 Del Method 12/22/24 07:09 36.4 C L 75 16 103/66 92 Nasal Cannula 12/22/24 03:11 36.4 C L 70 18 109/76 95 Nasal Cannula 12/21/24 23:05 36.4 C L 73 17 95/64 L 92 Nasal Cannula 12/21/24 22:00 72 O2 Flow Rate 12/22/24 07:09 1 12/22/24 03:11 1 12/21/24 23:05 12/21/24 22:00 Laboratory Results 12/22/24 05:52 12/22/24 05:52 Abnormal Lab Results 12/21/24 12/21/24 12/21/24 13:29 19:05 20:47 WBC RBC Hgb Hct MCV MCH MCHC RDW Std Deviation RDW Coeff of Gypsy Plt Count MPV Sodium 132 L Potassium 4.4 Chloride 101 Carbon Dioxide 26 Anion Gap 5 BUN 23 Creatinine 0.44 L Est Cr Clr Drug Dosing 135.3 eGFR 108.62 BUN/Creatinine Ratio 52.3 H Glucose 154 H POC Glucose 118 H 176 H Fasting Glucose Calcium 8.2 L Phosphorus Magnesium Total Bilirubin AST ALT Alkaline Phosphatase Total Protein Albumin Globulin Albumin/Globulin Ratio 12/21/24 12/22/24 12/22/24 22:47 00:35 05:52 WBC 6.71 RBC 4.04 L Hgb 13.1 Hct 38.7 MCV 95.8 MCH 32.4 MCHC 33.9 RDW Std Deviation 44.0 RDW Coeff of Gypsy 12.6 Plt Count 244 MPV 8.8 L Sodium 132 L 135 L Potassium 4.4 Chloride 101 Carbon Dioxide 27 Anion Gap 4 BUN 22 Creatinine 0.44 L Est Cr Clr Drug Dosing 135.3 eGFR 108.62 BUN/Creatinine Ratio 50.0 H Glucose 163 H POC Glucose 138 H Fasting Glucose Calcium 8.1 L Phosphorus 3.3 Magnesium 1.9 Total Bilirubin AST ALT Alkaline Phosphatase Total Protein Albumin Globulin Albumin/Globulin Ratio 12/22/24 12/22/24 12/22/24 05:52 05:52 05:52 WBC RBC Hgb Hct MCV MCH MCHC RDW Std Deviation RDW Coeff of Gypsy Plt Count MPV Sodium 135 L Potassium 4.1 4.2 Chloride 103 103 Carbon Dioxide 28 Anion Gap BUN Creatinine Est Cr Clr Drug Dosing eGFR BUN/Creatinine Ratio Glucose POC Glucose Fasting Glucose Calcium Phosphorus Magnesium Total Bilirubin AST ALT Alkaline Phosphatase Total Protein Albumin Globulin Albumin/Globulin Ratio 12/22/24 12/22/24 12/22/24 05:52 05:52 05:52 WBC RBC Hgb Hct MCV MCH MCHC RDW Std Deviation RDW Coeff of Gypsy Plt Count MPV Sodium Potassium Chloride Carbon Dioxide 27 Anion Gap 4 5 BUN 24 H 24 H Creatinine 0.45 L Est Cr Clr Drug Dosing eGFR BUN/Creatinine Ratio Glucose POC Glucose Fasting Glucose Calcium Phosphorus Magnesium Total Bilirubin AST ALT Alkaline Phosphatase Total Protein Albumin Globulin Albumin/Globulin Ratio 12/22/24 12/22/24 12/22/24 05:52 05:52 05:52 WBC RBC Hgb Hct MCV MCH MCHC RDW Std Deviation RDW Coeff of Gypsy Plt Count MPV Sodium Potassium Chloride Carbon Dioxide Anion Gap BUN Creatinine 0.46 L Est Cr Clr Drug Dosing 130.5 127.7 eGFR 108.03 107.46 BUN/Creatinine Ratio 53.3 H Glucose POC Glucose Fasting Glucose Calcium Phosphorus Magnesium Total Bilirubin AST ALT Alkaline Phosphatase Total Protein Albumin Globulin Albumin/Globulin Ratio 12/22/24 12/22/24 12/22/24 05:52 05:52 05:52 WBC RBC Hgb Hct MCV MCH MCHC RDW Std Deviation RDW Coeff of Gypsy Plt Count MPV Sodium Potassium Chloride Carbon Dioxide Anion Gap BUN Creatinine Est Cr Clr Drug Dosing eGFR BUN/Creatinine Ratio 52.2 H Glucose 116 H 119 H POC Glucose Fasting Glucose 116 H Calcium 8.0 L 8.0 L Phosphorus 3.3 Magnesium 2.0 Total Bilirubin 0.3 AST 14 ALT 9 Alkaline Phosphatase 33 L Total Protein 5.7 L Albumin 2.8 L Globulin 2.9 Albumin/Globulin Ratio 1.0 Diagnostic Findings No recent imaging studies. PG Care Time/CCT Total # of Minutes Spent Total Time Spent with Patient: Total time spent is greater than 50% in coordination of care (as documented) at patient's floor/unit and/or counseling patient: Coding Level of Care Code 76336 SUB INP/OBS CARE 2/35MIN Diagnoses Bilateral chylothorax J94.0 Hypoxia R09.02 Dyspnea on effort R06.09 Lymphoma C85.90 Acute pneumonia J18.9
--- NOTE | 2024-12-22 12:29 | Hospitalist Progress Note ---
Date of Service December 22, 2024 Assessment & Plan (1) Acute hypoxic respiratory failure: (2) Bilateral pleural effusion: (3) Bilateral chylothorax: (4) Lymphoma: (5) Rheumatoid arthritis: Plan 64-year-old female with PMH significant for rheumatoid arthritis and stage IV marginal B cell lymphoma who presented to the ED on 12/17/2024 with complaints of shortness of breath and is admitted for acute hypoxic respiratory failure with bilateral large pleural effusions in setting of marginal B cell lymphoma. 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 Bilateral triglyceride levels sent to confirm the diagnosis- pending. Repeat cytology sent 12/20 * Repeat CXR 12/19 interval stable, mild progression of left pleural effusion * Fluid reaccumulating despite low fat diet. * TPN and PICC line placed on 12/19 to help reduce chylous production . Keep NPO. * Significant reaccumulation s/p L Pleur-X catheter placed 12/20; capped on 12/22 and plan for drainage tomorrow * Continue Octreotide 100 mg SQ TID per Pulm * Monitor BMP, Mg+, Phos+ daily * Continue incentive spirometry for atelectasis Stage IV Marginal B cell Lymphoma Initially dx 2019, completed R-CHOP chemo and was under observation. However, PET scans since Feb 2024 with increased activity Most recent PET scan from 11/26/2024 revealing further increase in the multiple metabolic active lymph nodes noted, underwent laparoscopic evaluation at [facility] on 12/11/[address] Daniels, [facility] onc - patient recently underwent lap eval with biopsy of lymph node of abdomen, path pending. Follows with lymphoma specialist Dr. Montanez ([facility]) Recommends continue observation until triglyceride level results Given complexity, suspect she could benefit from Lymphadenography under IR ([facility] or [facility]) depending on resources. Transfer initiated by [facility] and [facility] can take patient in one week. Transfer center involved for Dr. Montanez [phone] @ [facility] to confirm if they can do Lymphadenography or assume care for Car-T-Cell Therapy sooner Hx RA Hold methotrexate for now Resumed home Tylenol, Gabapentin, prednisone Demand ischemia Trop 36 -> 28.5 on admission in setting of hypoxia, pleural effusions as above No chest pain or ECG changes DVT Prophylaxis: SCDs Code Status: FULL CODE PCP: Susanne Kaplantiago Patient seen in collaboration with Dr Teran. Please see addendum. I spent a total of 60 minutes coordinating, documenting and providing care for this patient excluding time spent in the performance of separately billed services or time spent by another provider/QHP. Admission and Anticipated Discharge Date Admission Date: December 17, 2024 Supervising Physician Co-Signing Physician Notes Patient is seen and examined at bedside. Subjectively feels better today. Dyspnea, pleuritic pain much improved. Discussed with pulmonology today. Also discussed with patient's family at bedside Physical Exam: Vitals signs as noted above General Appearance: Overweight, no apparent distress Head: normocephalic, Atraumatic Eyes: normal inspection, EOMI Neck: supple, Trachea midline Respiratory/Chest: Decreased breath sounds at bases, + basal crackles, , + Chemo-Port, no accessory muscle use Cardiovascular: S1, S2, No murmur Abdomen/GI:Soft, Non tender, Bowel sounds present Extremities/Musculoskeletal:normal inspection, 1+ edema Neurologic/Psych:AAOX3, grossly no focal neurological deficits Skin: normal color, warm Recurrent Bilateral chylothorax Acute respiratory failure with hypoxia Likely secondary to B-cell lymphoma S/P B/L thoracentesis S/P Left Pleurx catheter placement on 12/20/2024 Small pneumothorax post Pleurx catheter placement seem to be resolved Appreciate pulmonary help Wean off of supplemental oxygen as able Will need 2 step prior to discharge Continue TPN, bowel rest Pleural fluid cytology negative for malignancy. Pleural fluid culture negative to date for any infection Pathology from lymph node biopsy at [facility] is inconclusive Patient may need need lymphangiography and possible embolization Pleural fluid studies for triglyceride pending Continue octreotide Concern for recurrence of lymphoma or transformation to an aggressive lymphoma Follows with lymphoma specialist Dr. Montanez ([facility]):[phone] If no improvement with current management, plan to transfer to tertiary care facility for Lymphangiography and further management--possible embolization Symptomatically better today No plan for Pleurx placement on right side unless symptomatically requires Continue Pleurx catheter drainage every alternate day as recommended by pulmonology Saturating low 90s on 1 L supplemental oxygen Waiting for callback from Dr. Montanez's office for potential transfer if accepted I personally interviewed and examined the patient at bedside. I have reviewed the advanced practitioner's documentation on the date of service referred in note and agree with plan. Patient's care is coordinated with Yessica GOMEZ. Please refer to the documentation above for details of patient's presentation and for discussion of other issues. I spent a total of25 minutes coordinating, documenting, and providing care for this patient excluding time spent in the performance of separately billed services or time spent by another provider/QHP. Subjective Patient seen sitting up in bed Complaining of chronic back pain and discomfort at chest tube site Denies headaches, dizziness, chest pain, SOB, abdominal pain, N/V/D Reports she was OOB to chair yesterday Review of Systems Review of Systems: All systems reviewed & are unremarkable except as noted in Subjective Physical Exam Physical Exam: General/Psych: WD/WN, sitting up in bed, NAD, conversing easily, on 1L NC Head: normocephalic, atraumatic Eyes: normal inspection, PERRL, conjunctivae pink ENT: external ear and nose normal, oropharynx normal Neck: normal visual inspection, trachea midline Respiratory: normal respiratory effort, lungs clear to auscultation but diminished in bilateral bases, no wheeze/rales/rhonchi, no accessory muscle use, CT in left chest capped Cardiovascular: regular rate and rhythm, no murmur/rub/gallop, no JVD Extremities: no cyanosis or clubbing, normal peripheral pulses, no BLE edema Abdomen/GI: normal bowel sounds, soft, nontender Neurologic/MSK: A+Ox3, motor strength 5/5, moves all extremities Skin: no rashes, normal color, warm and dry Results & Data Results & Data Vital Signs (Past 12 Hours) Vital Signs Temp Pulse Pulse Resp BP Pulse Ox O2 Del Method 12/22/24 10:58 36.4 C L 85 18 98/68 L 90 Nasal Cannula 12/22/24 08:00 78 12/22/24 07:09 36.4 C L 75 16 103/66 92 Nasal Cannula 12/22/24 03:11 36.4 C L 70 18 109/76 95 Nasal Cannula O2 Flow Rate 12/22/24 10:58 1 12/22/24 08:00 12/22/24 07:09 1 12/22/24 03:11 1 Laboratory Results Short CBC 12/22/24 Range/Units 05:52 WBC 6.71 (4.8-10.8) K/ul Hgb 13.1 (12.0-16.0) g/dl Hct 38.7 (37.0-47.0) % Plt Count 244 (130-400) K/uL BMP 12/21/24 12/21/24 12/22/24 20:47 22:47 05:52 Sodium 132 L 132 L 135 L Potassium 4.4 4.4 Chloride 101 101 Carbon Dioxide 26 27 BUN 23 22 Creatinine 0.44 L 0.44 L Glucose 154 H 163 H Calcium 8.2 L 8.1 L 12/22/24 12/22/24 12/22/24 05:52 05:52 05:52 Sodium 135 L Potassium 4.1 4.2 Chloride 103 103 Carbon Dioxide 28 BUN Creatinine Glucose Calcium 12/22/24 12/22/24 12/22/24 05:52 05:52 05:52 Sodium Potassium Chloride Carbon Dioxide 27 BUN 24 H 24 H Creatinine 0.45 L 0.46 L Glucose 116 H Calcium 12/22/24 12/22/24 05:52 05:52 Sodium Potassium Chloride Carbon Dioxide BUN Creatinine Glucose 119 H Calcium 8.0 L 8.0 L Liver Function 12/22/24 Range/Units 05:52 Total Bilirubin 0.3 (0.2-1.0) mg/dl AST 14 (13-39) U/L ALT 9 (7-52) U/L Alkaline Phosphatase 33 L (34-104) U/L Albumin 2.8 L (3.4-5.0) gm/dl I have independently reviewed and interpreted patient's labs including CBC, CMP Medications Administered Current Inpatient Medications Albuterol (Albuterol Hfa 8 Gm Inhaler) 2 puffs INH Q6H PRN PRN Reason: Shortness Of Breath Or Wheezing Stop: 01/17/25 12:03 Calcium/Vitamin D (Calcium 600mg + Vit D 400 Iu Tab) 1 tab PO DAILY [facility] Stop: 01/18/25 08:59 Last Admin: 12/22/24 08:02 Dose: 1 tab Docusate Sodium (Docusate Sodium 100 Mg Cap) 100 mg PO BID [facility] Stop: 01/17/25 20:59 Last Admin: 12/22/24 07:58 Dose: 100 mg Fluticasone Propionate (Fluticasone Propionate Na Spr 16 Gm Btl) 1 sprays NA DAILY [facility] Stop: 01/17/25 09:59 Last Admin: 12/22/24 08:01 Dose: Not Given Folic Acid (Folic Acid 1 Mg Tab) 1 mg PO DAILY [facility] Stop: 01/17/25 09:59 Last Admin: 12/22/24 08:00 Dose: 1 mg Gabapentin (Gabapentin 300 Mg Cap) 300 mg PO TID [facility] Stop: 01/17/25 09:59 Last Admin: 12/22/24 08:01 Dose: 300 mg Heparin Sodium (Beef Lung) (Heparin 10 Unit/Ml 5 Ml Flush) 5 ml FLUSH PRN PRN PRN Reason: Flush Stop: 01/18/25 15:16 Heparin Sodium (Porcine) (Heparin Sod 5,000 Unit/0.5 Ml Vial) 5,000 units SQ Q8 [facility] Stop: 01/17/25 07:59 Last Admin: 12/19/24 13:25 Dose: 5,000 units Heparin Sodium (Porcine) (Heparin 100 Unit/Ml 5ml Flush) 5 ml FLUSH PRN PRN PRN Reason: Flush Stop: 01/21/25 02:41 Hydroxyzine HCl (Hydroxyzine Hcl 10 Mg Tab) 10 mg PO QID PRN PRN Reason: Anxiety Stop: 01/17/25 06:11 Promethazine HCl (Phenergan) 12.5 mg in 50.5 mls @ 202 mls/hr IV Q6H PRN PRN Reason: Nausea And Vomiting Stop: 01/16/25 20:07 Last Infusion: 12/20/24 21:31 Dose: Infused Amino Acids/Dextrose 1,281 ml/ (Nutrition (Parenteral)) 1,281 mls @ 53.4 mls/hr IV .Q24H [facility]; Protocol Stop: 12/22/24 15:59 Last Admin: 12/21/24 15:39 Dose: 53.4 mls/hr Acetaminophen (Ofirmev) 1,000 mg in 100 mls @ 400 mls/hr IV Q8H [facility] Stop: 12/23/24 09:29 Last Infusion: 12/22/24 08:12 Dose: Infused Amino Acids/Dextrose 1,281 ml/ (Nutrition (Parenteral)) 1,281 mls @ 53.4 mls/hr IV .Q24H [facility]; Protocol Stop: 12/23/24 15:59 Fat Emulsion-[place] Oil/Soybean Oil (Clinolipid 20% Iv Fat Emulsion) 250 mls @ 20.833 mls/hr IV .Q12H [facility] Stop: 12/23/24 03:59 Miscellaneous (Stop Clinolipid) 1 each N/A TODAY@0359 [facility] Stop: 01/20/25 03:58 Last Admin: 12/22/24 03:55 Dose: 1 each Miscellaneous Information (Tpn/Ppn Consult Pharmacy) 1 each N/A PRN PRN PRN Reason: Consult Stop: 01/18/25 13:07 Montelukast Sodium (Montelukast Sodium 10 Mg Tablet) 10 mg PO DAILY [facility] Stop: 01/18/25 08:59 Last Admin: 12/22/24 07:59 Dose: 10 mg Octreotide Acetate (Octreotide Acetate 100 Mcg/Ml Vial) 100 mcg SQ Q8 [facility] Stop: 01/19/25 14:29 Last Admin: 12/22/24 06:10 Dose: 100 mcg Ondansetron HCl (Ondansetron Inj 2 Mg/Ml 2 Ml Vial) 4 mg IV Q6H PRN PRN Reason: Nausea And Vomiting Stop: 01/20/25 14:36 Oxycodone HCl (Oxycodone Hcl Ir 5 Mg Tab (Immediate Release)) 5 - 10 mg PO QID PRN PRN Reason: Pain Stop: 12/31/24 19:58 Last Admin: 12/22/24 04:59 Dose: 10 mg Pantoprazole Sodium (Pantoprazole 40 Mg Tab) 40 mg PO QAM [facility] Stop: 01/17/25 12:14 Last Admin: 12/22/24 07:59 Dose: 40 mg Polyethylene Glycol (Polyethylene (Miralax) 17 Gm Pack) 17 gm PO DAILY PRN PRN Reason: Constipation Stop: 01/17/25 18:14 Prednisone (Prednisone 2.5 Mg Tab) 7.5 mg PO QAM [facility] Stop: 01/17/25 12:14 Last Admin: 12/22/24 07:59 Dose: 7.5 mg Prednisone (Pred[facility]one 1 Mg Tab) [facility] Stop: 01/17/25 12:14 Last Admin: 12/22/24 08:02 Dose: 1 mg
[2024-12-22] MEDS: [UNRECOGNIZED DRUG - OTHER] IV SCH (16:22)
[2024-12-22] MEDS: CENTRAL TPN IV SCH (16:22)
[2024-12-22] MEDS: CLINOLIPID 20% IV FAT EMULSION 250 ML IV SCH (16:22)
--- NOTE | 2024-12-22 17:43 | Communication Note ---
Date of Service: December 22, [address] Pasha Jones, surgical oncologist at [facility]. Patient is accepted to tertiary care facility for further management. Updated patient who agrees with the plan.
--- NOTE | 2024-12-22 17:46 | Discharge Summary ---
Date of Service December 22, 2024 Admission HPI Per Admitting Provider Patient is a 64-year-old female with a past medical history of RA, managed on methotrexate and prednisone and B-cell lymphomaoriginally diagnosed in 2019, completed chemo and had been stable. Recent PET scan in November 2024 with increased activity. S/p lymph node biopsy on 12/11/2024still pending who presents to the ED on 12/17/2024 with complaints of shortness of breath, slowly worsening over the past 3 days. Patient reports after getting her lymph node biopsy she felt fine. On Sunday night, began with some shortness of breath. Was seen outpatient and started on an inhaler for suspicion of possible asthma. There was no improvement, and the patient reported to the ED today. Found to be hypoxic at 85% on room air and placed on 5 L of oxygen. Patient denies any underlying lung history. She is not a smoker. She denies any recent fever/chills/chest pain. Denies any nausea/vomiting/diarrhea or abdominal pain. On arrival to the ED, labs remarkable for NA 130, chloride 94, glucose 119, calcium 1.10, troponin 28.5, BNP within normal limits Chest x-ray shows: 1. Cardiomegaly without evidence of congestive failure and pulmonary edema. 2. Layering pleural effusions with dependent consolidation. CT chest & A/P 1. No pulmonary emboli identified. 2. Large pleural effusions with dependent compressive atelectasis of the lungs. 3. Pathologic left supraclavicular lymphadenopathy has progressed from the 10/12/2024 study. Additionally, there is pathologic left subpectoral, axillary, posterior mediastinal/retrocrural lymphadenopathy. If not already conducted, tissue sampling recommended. 4. No bowel obstruction or bowel wall thickening. 5. Debris within the mid esophagus with mild nonspecific mid to distal esophageal wall thickening. 6. Body wall edema with trace ascites. The patient will be admitted for further management of acute hypoxic respiratory failure and bilateral pleural effusions Principal Diagnosis Stage IV B cell Lymphoma Chylothorax Acute respiratory failure with hypoxia Discharge Data Allergies Allergy/AdvReac Type Severity Reaction Status Date / Time amoxicillin Allergy Intermediate Rash Verified 12/17/24 12:53 Consultations 12/17/24 12:30 ED Decision to Admit Stat 12/17/24 13:51 Consult Pulmonology Routine 12/17/24 16:47 Consult Pulmonology Routine Procedures Performed Laboratory Results WBC 6.71 K/ul (4.8-10.8) 12/22/24 05:52 RBC 4.04 M/uL (4.20-5.40) L 12/22/24 05:52 Hgb 13.1 g/dl (12.0-16.0) 12/22/24 05:52 POC Hgb 13.6 g/dl (12.0-16.0) 12/17/24 10:09 Hct 38.7 % (37.0-47.0) 12/22/24 05:52 POC Hct 40 % (37-47) 12/17/24 10:09 MCV 95.8 fL (80.0-100.0) 12/22/24 05:52 MCH 32.4 pg (25.0-34.0) 12/22/24 05:52 MCHC 33.9 g/dL (32.0-36.0) 12/22/24 05:52 RDW Std Deviation 44.0 fL (36.4-46.3) 12/22/24 05:52 RDW Coeff of Gypsy 12.6 % (11.5-14.5) 12/22/24 05:52 Plt Count 244 K/uL (130-400) 12/22/24 05:52 MPV 8.8 fL (9.4-12.4) L 12/22/24 05:52 Immature Gran % (Auto) 0.9 % 12/18/24 06:37 Neut % (Auto) 71.3 % 12/18/24 06:37 Lymph % (Auto) 9.1 % 12/18/24 06:37 George % (Auto) 13.3 % 12/18/24 06:37 Eos % (Auto) 5.1 % 12/18/24 06:37 Baso % (Auto) 0.3 % 12/18/24 06:37 Neut # (Auto) 4.61 K/uL (1.40-6.50) 12/18/24 06:37 Lymph # (Auto) 0.59 K/uL (1.20-3.40) L 12/18/24 06:37 George # (Auto) 0.86 K/uL (0.11-0.59) H 12/18/24 06:37 Eos # (Auto) 0.33 K/uL (0.00-0.50) 12/18/24 06:37 Baso # (Auto) 0.02 K/uL (0.00-0.20) 12/18/24 06:37 Immature Gran # (Auto) 0.06 K/uL (0.01-0.20) 12/18/24 06:37 PT 10.6 Seconds (9.0-12.0) 12/17/24 09:50 INR 1.0 (0.9-1.1) 12/17/24 09:50 APTT 23 Seconds (21-31) 12/17/24 09:50 PTT Ratio 0.9 12/17/24 09:50 VBG pH 7.42 (7.36-7.41) H 12/17/24 10:21 VBG pCO2 43 mmHg (38-50) 12/17/24 10:21 VBG pO2 34 mmHg 12/17/24 10:21 VBG HCO3 28 mmol/L 12/17/24 10:21 VBG O2 Saturation 60.5 % 12/17/24 10:21 VBG Base Excess 3.0 mEq/L 12/17/24 10:21 POC Sodium 130 mmol/L (135-144) L 12/17/24 10:09 Sodium 135 mmol/L (136-145) L 12/22/24 05:52 Sodium 135 mmol/L (136-145) L 12/22/24 05:52 POC Potassium 3.7 mmol/L (3.3-5.0) 12/17/24 10:09 Potassium 4.1 mmol/L (3.5-5.1) 12/22/24 05:52 Potassium 4.2 mmol/L (3.5-5.1) 12/22/24 05:52 POC Chloride 92 mmol/L (101-112) L 12/17/24 10:09 Chloride 103 mmol/L (98-107) 12/22/24 05:52 Chloride 103 mmol/L (98-107) 12/22/24 05:52 Carbon Dioxide 27 mmol/L (21-32) 12/22/24 05:52 Carbon Dioxide 28 mmol/L (21-32) 12/22/24 05:52 POC Total CO2 25 mmol/L (24-31) 12/17/24 10:09 Anion Gap 4 (3-11) 12/22/24 05:52 Anion Gap 5 (3-11) 12/22/24 05:52 POC Anion Gap 18.0 mmol/L (16-25) 12/17/24 10:09 POC BUN 14 mg/dl (7-18) 12/17/24 10:09 BUN 24 mg/dl (6-23) H 12/22/24 05:52 BUN 24 mg/dl (6-23) H 12/22/24 05:52 Creatinine 0.45 mg/dl (0.6-1.2) L 12/22/24 05:52 Creatinine 0.46 mg/dl (0.6-1.2) L 12/22/24 05:52 POC Creatinine 0.8 mg/dl (0.6-1.3) 12/17/24 10:09 Est Cr Clr Drug Dosing 127.7 ml/min 12/22/24 05:52 Est Cr Clr Drug Dosing 130.5 ml/min 12/22/24 05:52 eGFR 107.46 12/22/24 05:52 eGFR 108.03 12/22/24 05:52 BUN/Creatinine Ratio 52.2 (10-20) H 12/22/24 05:52 BUN/Creatinine Ratio 53.3 (10-20) H 12/22/24 05:52 Glucose 116 mg/dl (70-99(Fasting)) H 12/22/24 05:52 Glucose 119 mg/dl (70-99(Fasting)) H 12/22/24 05:52 POC Glucose 132 mg/dl (70-99) H 12/22/24 11:54 POC Glucose (other) 118 mg/dl (70-99) H 12/17/24 10:09 Fasting Glucose 116 mg/dl (70-99) H 12/22/24 05:52 Estimat Average Glucose 114 mg/dl 12/21/24 05:29 Hemoglobin A1c 5.6 % (4.5-5.6) 12/21/24 05:29 Lactate 1.2 mmol/L (0.4-2.0) 12/17/24 10:21 Calcium 8.0 mg/dl (8.6-10.3) L 12/22/24 05:52 Calcium 8.0 mg/dl (8.6-10.3) L 12/22/24 05:52 POC Ioniz Calcium Ruiz 1.10 mmol/l (1.12-1.32) L 12/17/24 10:09 Phosphorus 3.3 mg/dl (2.5-4.9) 12/22/24 05:52 Magnesium 2.0 mg/dl (1.7-2.4) 12/22/24 05:52 Total Bilirubin 0.3 mg/dl (0.2-1.0) 12/22/24 05:52 AST 14 U/L (13-39) 12/22/24 05:52 ALT 9 U/L (7-52) 12/22/24 05:52 Alkaline Phosphatase 33 U/L (34-104) L 12/22/24 05:52 Troponin I High Sens 28.5 pg/ml (0-14) H 12/17/24 11:34 B-Natriuretic Peptide 25 pg/ml (0-100) 12/17/24 10:21 Total Protein 5.7 gm/dl (6.0-8.3) L 12/22/24 05:52 Albumin 2.8 gm/dl (3.4-5.0) L 12/22/24 05:52 Globulin 2.9 gm/dl (2.5-4.0) 12/22/24 05:52 Albumin/Globulin Ratio 1.0 (0.9-2) 12/22/24 05:52 Triglycerides 92 mg/dl (0-150) 12/17/24 09:50 Procalcitonin < 0.02 ng/ml (0-0.5) 12/20/24 12:24 Fluid Neutrophils % 66 % 12/17/24 Unknown Fluid Lymphocytes % 9 % 12/17/24 Unknown Fluid Eosinophils % 1 % 12/17/24 Unknown Fluid Meso/Macro/George % 24 % 12/17/24 Unknown Fluid Slide Review 12/17/24 Unknown Fluid Comment 12/17/24 Unknown Pleural Fluid Source Right Lung 12/17/24 Unknown Pleural Color Other 12/17/24 Unknown Pleural Appearance Turbid 12/17/24 Unknown Pleural pH 7.45 (7.3-7.4) H 12/17/24 Unknown Pleural WBC (Auto) 1819 /uL 12/17/24 Unknown Pleural RBC (Auto) 5000 /uL 12/17/24 Unknown Pleural Total Protein 3.5 gm/dl 12/17/24 Unknown Pleural LDH 150 U/L 12/17/24 Unknown Pleural LDH Cancelled 12/17/24 Unknown Pleural Glucose 125 mg/dl 12/17/24 Unknown Pleural Glucose Cancelled 12/17/24 Unknown Pleural Amylase 21 U/L 12/17/24 Unknown Pleural Amylase Cancelled 12/17/24 Unknown Nasal Screen MRSA (PCR) Negative (Negative) 12/20/24 12:40 Impressions Abdomen/Pelvis CT 12/17/24 10:05 CT angio chest PE protocol, CT abd pelvis IV con only HISTORY: 64 years-old Female with SOB, RECENT SURGERY. Acute shortness of breath TECHNIQUE: Multiple CTA images of the chest were obtained after the intravenous administration of 119 ml Optiray. Coronal and sagittal MIPS were obtained from the axial data set and were submitted for review. CT abdomen and pelvis with IV contrast only also obtained. All measurements were obtained according to NASCET criteria. A dose lowering technique was utilized adhering to the principles of ALARA. COMPARISON: CT neck 10/12/2024 FINDINGS: CTA: Heart is mildly enlarged. No pericardial effusion. No thoracic aortic aneurysm. No pulmonary emboli are seen. CT CHEST: No thyroid nodule. Left supraclavicular lymph nodes measure up to 2.4 x 1.3 cm, image 190 series 4. These previously measured up to 1.7 x 0.6 cm. Pathologic left subpectoral and axillary lymph nodes measure up to 2.6 x 1.8 cm on image 136. 1.9 x 1.4 cm right retrocrural lymph node on image 14 series 4. 1.5 x 1.0 cm a lymph node adjacent to the posterior midesophagus on image 121. Borderline enlarged subcarinal and hilar lymph nodes. Large pleural effusions. No pneumothorax. Azygos lobe and fissure. Volume loss with compressive atelectasis of the lungs. No suspicious pulmonary nodules or masses identified. Central airways are patent. Nonspecific wall thickening of the mid to distal esophagus which is partially debris-filled. Fluid surrounds the esophagus-recommend hiatus. Unremarkable soft tissues. No breast mass identified on this study. No acute fracture or destructive bone lesion identified. Subcentimeter sclerotic focus of the sternal manubrium on image 152 series 4 is unchanged. Right scapular sclerotic foci measure up to 1.3 cm. These are nonspecific. CT ABDOMEN/PELVIS: No pneumatosis or pneumoperitoneum. Unremarkable spleen. The pancreas is unremarkable with a punctate calcification of the uncinate process. Possible small gallstone within the gallbladder neck. Gallbladder is otherwise unremarkable. Liver is within normal limits. Patent portal vein. 11 mm cyst of the superior pole left kidney. No hydronephrosis. Mild nonspecific urinary bladder wall thickening. No adnexal mass lesions. Atherosclerosis of the aorta. 1.4 x 0.9 cm aortocaval lymph node on image 159 series 6. Right retrocrural lymphadenopathy as above. Left inguinal chain lymph nodes measure up to 9 mm. Duodenal diverticula. Trace abdominal pelvic ascites. Body wall edema. Mild colonic diverticulosis without acute diverticulitis. The majority of the large bowel is decompressed. Normal appendix. No acute fracture. Lumbar levoscoliosis. No suspicious bone lesions. IMPRESSION: 1. No pulmonary emboli identified. 2. Large pleural effusions with dependent compressive atelectasis of the lungs. 3. Pathologic left supraclavicular lymphadenopathy has progressed from the 10/12/2024 study. Additionally, there is pathologic left subpectoral, axillary, posterior mediastinal/retrocrural lymphadenopathy. If not already conducted, tissue sampling recommended. 4. No bowel obstruction or bowel wall thickening. 5. Debris within the mid esophagus with mild nonspecific mid to distal esophageal wall thickening. 6. Body wall edema with trace ascites. ACT 112: Negative or not required by law. The above report was generated using voice recognition software. It may contain grammatical, syntax or spelling errors. Electronically signed by: Al Haley M.D. 12/17/2024 11:49 AM Chest CTA 12/17/24 10:05 CT angio chest PE protocol, CT abd pelvis IV con only HISTORY: 64 years-old Female with SOB, RECENT SURGERY. Acute shortness of breath TECHNIQUE: Multiple CTA images of the chest were obtained after the intravenous administration of 119 ml Optiray. Coronal and sagittal MIPS were obtained from the axial data set and were submitted for review. CT abdomen and pelvis with IV contrast only also obtained. All measurements were obtained according to NASCET criteria. A dose lowering technique was utilized adhering to the principles of ALARA. COMPARISON: CT neck 10/12/2024 FINDINGS: CTA: Heart is mildly enlarged. No pericardial effusion. No thoracic aortic aneurysm. No pulmonary emboli are seen. CT CHEST: No thyroid nodule. Left supraclavicular lymph nodes measure up to 2.4 x 1.3 cm, image 190 series 4. These previously measured up to 1.7 x 0.6 cm. Pathologic left subpectoral and axillary lymph nodes measure up to 2.6 x 1.8 cm on image 136. 1.9 x 1.4 cm right retrocrural lymph node on image 14 series 4. 1.5 x 1.0 cm a lymph node adjacent to the posterior midesophagus on image 121. Borderline enlarged subcarinal and hilar lymph nodes. Large pleural effusions. No pneumothorax. Azygos lobe and fissure. Volume loss with compressive atelectasis of the lungs. No suspicious pulmonary nodules or masses identified. Central airways are patent. Nonspecific wall thickening of the mid to distal esophagus which is partially debris-filled. Fluid surrounds the esophagus-recommend hiatus. Unremarkable soft tissues. No breast mass identified on this study. No acute fracture or destructive bone lesion identified. Subcentimeter sclerotic focus of the sternal manubrium on image 152 series 4 is unchanged. Right scapular sclerotic foci measure up to 1.3 cm. These are nonspecific. CT ABDOMEN/PELVIS: No pneumatosis or pneumoperitoneum. Unremarkable spleen. The pancreas is unremarkable with a punctate calcification of the uncinate process. Possible small gallstone within the gallbladder neck. Gallbladder is otherwise unremarkable. Liver is within normal limits. Patent portal vein. 11 mm cyst of the superior pole left kidney. No hydronephrosis. Mild nonspecific urinary bladder wall thickening. No adnexal mass lesions. Atherosclerosis of the aorta. 1.4 x 0.9 cm aortocaval lymph node on image 159 series 6. Right retrocrural lymphadenopathy as above. Left inguinal chain lymph nodes measure up to 9 mm. Duodenal diverticula. Trace abdominal pelvic ascites. Body wall edema. Mild colonic diverticulosis without acute diverticulitis. The majority of the large bowel is decompressed. Normal appendix. No acute fracture. Lumbar levoscoliosis. No suspicious bone lesions. IMPRESSION: 1. No pulmonary emboli identified. 2. Large pleural effusions with dependent compressive atelectasis of the lungs. 3. Pathologic left supraclavicular lymphadenopathy has progressed from the 10/12/2024 study. Additionally, there is pathologic left subpectoral, axillary, posterior mediastinal/retrocrural lymphadenopathy. If not already conducted, tissue sampling recommended. 4. No bowel obstruction or bowel wall thickening. 5. Debris within the mid esophagus with mild nonspecific mid to distal es ophageal wall thickening. 6. Body wall edema with trace ascites. ACT 112: Negative or not required by law. The above report was generated using voice recognition software. It may contain grammatical, syntax or spelling errors. Electronically signed by: Al Haley M.D. 12/17/2024 11:49 AM Chest X-Ray 12/21/24 07:00 EXAM: XR chest 1V portable CLINICAL HISTORY: Left effusion. TECHNIQUE: An X-ray image of the chest is obtained in AP projection. COMPARISON: 12/20/2024. FINDINGS: Pulmonary Parenchyma: Unchanged bilateral mild pleural effusion No evidence of lobar consolidation, collapse, or focal opacities. Unchanged right port-cath with tip in the right atrium. Heart and Mediastinum: Unchanged cardiomegaly. No mediastinal widening or masses. No hilar or mediastinal lymphadenopathy. Bony Thorax: Bony thorax appears intact without fractures or deformities. Soft Tissues: Soft tissues overlying the chest wall are unremarkable. IMPRESSION: 1. No gross interval change in comparison with 12/20/2024. 2. Unchanged bilateral mild pleural effusion. 3. Unchanged right port-cath with tip in the right atrium. Electronically signed by Igor Huston 12-21-2024 08:40 AM Ordered Studies 12/17/24 10:05 CT abd pelvis IV con only Stat CT angio chest PE protocol Stat 12/20/24 10:22 US point of care ultrasound Urgent Hospital Course (1) Acute hypoxic respiratory failure: (2) Bilateral pleural effusion: (3) Bilateral chylothorax: (4) Lymphoma: (5) Rheumatoid arthritis: Plan 64-year-old female with PMH significant for rheumatoid arthritis and stage IV marginal B cell lymphoma who presented to the ED on 12/17/2024 with complaints of shortness of breath and is admitted for acute hypoxic respiratory failure with b ilateral large pleural effusions in setting of marginal B cell lymphoma. 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 Bilateral triglyceride levels sent to confirm the diagnosis- pending. Repeat cytology sent 12/20 * Repeat CXR 12/19 interval stable, mild progression of left pleural effusion * Fluid reaccumulating despite low fat diet. * TPN and PICC line placed on 12/19 to help reduce chylous production . Keep NPO. * Significant reaccumulation s/p L Pleur-X catheter placed 12/20; capped on 12/22 and plan for drainage tomorrow * Continue Octreotide 100 mg SQ TID per Pulm * Monitor BMP, Mg+, Phos+ daily * Continue incentive spirometry for atelectasis Stage IV Marginal B cell Lymphoma Initially dx 2019, completed R-CHOP chemo and was under observation. However, PET scans since Feb 2024 with increased activity Most recent PET scan from 11/26/2024 revealing further increase in the multiple metabolic active lymph nodes noted, underwent laparoscopic evaluation at [facility] on 12/11/[address] Daniels, [facility] - patient recently underwent lap eval with biopsy of lymph node of abdomen, path pending. Follows with lymphoma specialist Dr. Montanez ([facility]) Recommends continue observation until triglyceride level results Given complexity, suspect she could benefit from Lymphadenography under IR ([facility] or [facility]) depending on resources. Transfer initiated by [facility] and [facility] can take patient in one week. Transfer center involved for Dr. Montanez [phone] @ [facility] to confirm if they can do Lymphadenography or assume care for Car-T-Cell Therapy sooner Hx RA Hold methotrexate for now Resumed home Tylenol, Gabapentin, prednisone Demand ischemia Trop 36 -> 28.5 on admission in setting of hypoxia, pleural effusions as above No chest pain or ECG changes DVT Prophylaxis: SCDs Code Status: FULL CODE PCP: Susanne Romero Disposition [facility] Discussed with Dr. Pasha Jones, surgical oncologist at [facility]. Given her patient's condition, need for surgical oncology evaluation/IR evaluation for possible lymph angiography and possible embolization, patient is accepted to tertiary care facility for further management. Updated patient who agrees with the plan. Patient will be transferred to to [facility] care facility once transportation arranged. Total Time Total Time Spent Total Time Spent (In Minutes): 54 minutes Discharge Plan Discharge Items Patient Disposition: Transfer Acute Care Hospital Reason For Visit: HYPOXIA Discharge Diagnosis: Stage IV B cell Lymphoma Chylothorax Condition on Discharge: Serious Activity: Resume your previous activity Non-emergency contact: Primary Care Provider, Specialist and Forest Bot[employer] Instructor Call non-emergency contact if: your pain is worsening and your temperature is above 101.5 Follow-up/Referrals: Susanne Romero PA-C [Primary Care Provider] - ( ) Diet: Low Fat Addtl Attending Provider Instructions: Ms. Xander Jason presented to the [facility] [address] with complaints of shortness of breath. You were found to have bilateral (both lungs) large pleural effusions (fluid inside your lungs) in the setting of marginal B-Cell lymphoma. While here, pulmonology was consulted and you underwent a bilateral thoracentesis on December 17 with 1.75 L output from R pleural space, 1.40 L output from L pleural place . You were diagnosed with a bilateral chylothorax which is suspected to be in the setting of active lymphoma and thoracic duct obstruction. TPN (Total Parenteral Nutrition) and a PICC (peripherally inserted central cat heter) were inserted on December 19 to help reduce chylous production. On December 20 you were started on Octreotide to assist with slowing down the production of chylous. Extensive review of your records was performed via portal with your where it was clarified that you have stage IV marginal zone lymphoma. Given the complexity of your illness, it is recommended that you be transferred to a [facility] for further evaluation and treatment. PENDING TEST RESULTS: 1. Triglyceride levels 2. Acid fast culture OTHER INSTRUCTIONS: Seek medical attention if you have: * temperature above 101 * chest pain or trouble breathing * abdominal pain, nausea, vomiting * diarrhea, dark stools or bloody stools * any unanswered questions or concerns Call 911 if symptoms are severe. Please take good care of yourself. It has been a pleasure taking care of you. Please take care of yourself. If you have any questions regarding your recent hospitalization please contact [facility] [address] and request Ben Torres @ [phone]. Addtl Surgical Instruments Inspector Provider Instructions: Date of Service: December 22, 2024 Current Inpatient Medications Albuterol (Albuterol Hfa 8 Gm Inhaler) 2 puffs INH Q6H PRN PRN Reason: Shortness Of Breath Or Wheezing Stop: 01/17/25 12:03 Calcium/Vitamin D (Calcium 600mg + Vit D 400 Iu Tab) 1 tab PO DAILY MICKY Stop: 01/18/25 08:59 Last Admin: 12/22/24 08:02 Dose: 1 tab Docusate Sodium (Docusate Sodium 100 Mg Cap) 100 mg PO BID MICKY Stop: 01/17/25 20:59 Last Admin: 12/22/24 07:58 Dose: 100 mg Fluticasone Propionate (Fluticasone Propionate Na Spr 16 Gm Btl) 1 sprays NA DAILY MICKY Stop: 01/17/25 09:59 Last Admin: 12/22/24 08:01 Dose: Not Given Folic Acid (Folic Acid 1 Mg Tab) 1 mg PO DAILY MICKY Stop: 01/17/25 09:59 Last Admin: 12/22/24 08:00 Dose: 1 mg Gabapentin (Gabapentin 300 Mg Cap) 300 mg PO TID MICKY Stop: 01/17/25 09:59 Last Admin: 12/22/24 13:17 Dose: 300 mg Heparin Sodium (Beef Lung) (Heparin 10 Unit/Ml 5 Ml Flush) 5 ml FLUSH PRN PRN PRN Reason: Flush Stop: 01/18/25 15:16 Heparin Sodium (Porcine) (Heparin 100 Unit/Ml 5ml Flush) 5 ml FLUSH PRN PRN PRN Reason: Flush Stop: 01/21/25 02:41 Heparin Sodium (Porcine) (Heparin Sod 5,000 Unit/0.5 Ml Vial) 5,000 units SQ Q12 MICKY Stop: 01/21/25 20:59 Hydroxyzine HCl (Hydroxyzine Hcl 10 Mg Tab) 10 mg PO QID PRN PRN Reason: Anxiety Stop: 01/17/25 06:11 Promethazine HCl (Phenergan) 12.5 mg in 50.5 mls @ 202 mls/hr IV Q6H PRN PRN Reason: Nausea And Vomiting Stop: 01/16/25 20:07 Last Infusion: 12/20/24 21:31 Dose: Infused Acetaminophen (Ofirmev) 1,000 mg in 100 mls @ 400 mls/hr IV Q8H [facility] Stop: 12/23/24 09:29 Last Infusion: 12/22/24 16:39 Dose: Infused Amino Acids/Dextrose 1,281 ml/ (Nutrition (Parenteral)) 1,281 mls @ 53.4 mls/hr IV .Q24H [facility]; Protocol Stop: 12/23/24 15:59 Last Admin: 12/22/24 16:22 Dose: 53.4 mls/hr Fat Emulsion-[place] Oil/Soybean Oil (Clinolipid 20% Iv Fat Emulsion) 250 mls @ 20.833 mls/hr IV .Q12H [facility] Stop: 12/23/24 03:59 Last Admin: 12/22/24 16:22 Dose: 20.8 mls/hr Miscellaneous (Stop Clinolipid) 1 each N/A TODAY@0359 [facility] Stop: 01/20/25 03:58 Last Admin: 12/22/24 03:55 Dose: 1 each Miscellaneous Information (Tpn/Ppn Consult Pharmacy) 1 each N/A PRN PRN PRN Reason: Consult Stop: 01/18/25 13:07 Montelukast Sodium (Montelukast Sodium 10 Mg Tablet) 10 mg PO DAILY [facility] Stop: 01/18/25 08:59 Last Admin: 12/22/24 07:59 Dose: 10 mg Octreotide Acetate (Octreotide Acetate 100 Mcg/Ml Vial) 100 mcg SQ Q8 [facility] Stop: 01/19/25 14:29 Last Admin: 12/22/24 13:17 Dose: 100 mcg Ondansetron HCl (Ondansetron Inj 2 Mg/Ml 2 Ml Vial) 4 mg IV Q6H PRN PRN Reason: Nausea And Vomiting Stop: 01/20/25 14:36 Oxycodone HCl (Oxycodone Hcl Ir 5 Mg Tab (Immediate Release)) 5 - 10 mg PO QID PRN PRN Reason: Pain Stop: 12/31/24 19:58 Last Admin: 12/22/24 04:59 Dose: 10 mg Pantoprazole Sodium (Pantoprazole 40 Mg Tab) 40 mg PO QAM [facility] Stop: 01/17/25 12:14 Last Admin: 12/22/24 07:59 Dose: 40 mg Polyethylene Glycol (Polyethylene (Miralax) 17 Gm Pack) 17 gm PO DAILY PRN PRN Reason: Constipation Stop: 01/17/25 18:14 Prednisone (Prednisone 2.5 Mg Tab) 7.5 mg PO QAM [facility] Stop: 01/17/25 12:14 Last Admin: 12/22/24 07:59 Dose: 7.5 mg Prednisone (Prednisone 1 Mg Tab) 1 mg PO QAM [facility] Stop: 01/17/25 12:14 Last Admin: 12/22/24 08:02 Dose: 1 mg Pending Studies at Discharge: Yes Stand-Alone Forms: My [facility] Skilled Items Patient informed of condition?: Yes DNR: No Discharge Level of Care: Other Communicable Disease: No Discharge Prognosis: Stable Lines: Mid-Line and PICC Urinary Catheter: No Medications and DC Order Prescriptions: Continued methotrexate sodium 2.5 mg tablet 20 mg PO WK Rx Instructions: take 8 tablets daily on Sundays folic acid 1 mg tablet 1 mg PO DAILY celecoxib [Celebrex] 200 mg Capsule 200 mg PO DAILY magnesium 250 mg Tablet 250 mg PO DAILY acetaminophen [Tylenol Extra Strength] 500 mg Tablet 1,000 mg PO Q6H PRN (Reason: fever/pain) calcium carbonate-vitamin D3 [Calcium 600 + D(3)] 600 mg-10 mcg (400 unit) Tablet 1 tab PO DAILY gabapentin 300 mg Capsule 300 mg PO TID prednisone 5 mg tablet 7.5 mg PO QAM Patient Comments: Take w/ 1mg to equal 8.5mg in the morning prednisone 1 mg tablet 1 mg PO QAM Patient Comments: Take w/ 7.5mg to equal 8.5mg in the morning montelukast 10 mg tablet 10 mg PO DAILY albuterol sulfate 90 mcg/actuation HFA aerosol inhaler 2 puff INHALATION Q6H PRN (Reason: Shortness Of Breath Or Wheezing) fluticasone propionate 50 mcg/actuation spray,suspension 1 spray INTRANASAL DAILY Discharge Orders: Discharge Order (Routine); Ordered 12/22/24 Ordered By: Mic Teran Admission Data Admit Date/Time: 12/17/24 14:27 Attending Provider: Mic Teran Admit Provider: Francisco Muhammad Primary Care Provider: Susanne Romero Other Providers: Rodger Foote; Francisco Muhammad
[2024-12-22] MEDS: ONDANSETRON INJ 2 MG/ML 2 ML VIAL IV PRN (21:05)
[2024-12-22] MEDS: HEPARIN SOD 5,000 UNIT/0.5 ML VIAL SQ SCH (21:05)
--- NOTE | 2024-12-23 08:05 | Hospitalist Progress Note ---
Date of Service December 23, 2024 Assessment & Plan (1) Acute hypoxic respiratory failure: (2) Bilateral pleural effusion: (3) Bilateral chylothorax: (4) Lymphoma: (5) Rheumatoid arthritis: Plan 64-year-old female with PMH significant for rheumatoid arthritis and stage IV marginal B cell lymphoma who presented to the ED on 12/17/2024 with complaints of shortness of breath and is admitted for acute hypoxic respiratory failure with bilateral large pleural effusions in setting of marginal B cell lymphoma. 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 Bilateral triglyceride levels sent to confirm the diagnosis- pending. Repeat cytology sent 12/20 * Repeat CXR 12/19 interval stable, mild progression of left pleural effusion * Fluid reaccumulating despite low fat diet. * TPN and PICC line placed on 12/19 to help reduce chylous production . Keep NPO. * Significant reaccumulation s/p L Pleur-X catheter placed 12/20; capped on 12/22 * Continue Octreotide 100 mg SQ TID per Pulm * Monitor BMP, Mg+, Phos+ daily * Continue incentive spirometry for atelectasis Stage IV Marginal B cell Lymphoma Initially dx 2019, completed R-CHOP chemo and was under observation. However, PET scans since Feb 2024 with increased activity Most recent PET scan from 11/26/2024 revealing further increase in the multiple metabolic active lymph nodes noted, underwent laparoscopic evaluation at [facility] on 12/11/[address] Daniels, [facility] onc - patient recently underwent lap eval with biopsy of lymph node of abdomen, path pending. Follows with lymphoma specialist Dr. Montanez ([facility]) Recommends continue observation until triglyceride level results Given complexity, suspect she could benefit from Lymphadenography under IR ([facility] or [facility]) depending on resources. Transfer initiated by [facility] and [facility] can take patient in one week. Transfer center involved for Dr. Montanez @ [facility] to confirm if they can do Lymphadenography or assume care for Car-T-Cell Therapy sooner Hx RA Hold methotrexate for now Resumed home Tylenol, Gabapentin, prednisone Demand ischemia Trop 36 -> 28.5 on admission in setting of hypoxia, pleural effusions as above No chest pain or ECG changes DVT Prophylaxis: SCDs Code Status: FULL CODE PCP: Susanne Romero Disposition: transfer to [facility] On 12/22 Dr Teran discussed this case with Dr. Pasha Jones, surgical oncologist at [facility]. Given her patient's condition, need for surgical oncology evaluation/IR evaluation for possible lymph angiography and possible embolization, patient was accepted to tertiary care facility for further management. Patient and family were agreeable. Patient will be transferred to to tertiary [facility] facility at 1100. Patient seen in collaboration with Dr Teran. Please see addendum. I spent a total of 35 minutes coordinating, documenting and providing care for this patient excluding time spent in the performance of separately billed services or time spent by another provider/QHP. Admission and Anticipated Discharge Date Admission Date: December 17, 2024 Supervising Physician Co-Signing Physician Notes Patient is seen and examined at bedside. States having nausea this morning. Also has chest tube discomfort. No other complaints today. Family at bedside. Plan to be transferred to tertiary care facility today. Physical Exam: Vitals signs as noted above General Appearance: Overweight, no apparent distress Head: normocephalic, Atraumatic Eyes: normal inspection, EOMI Neck: supple, Trachea midline Respiratory/Chest: Decreased breath sounds at bases, + basal crackles, , + Chemo-Port, no accessory muscle use Cardiovascular: S1, S2, No murmur Abdomen/GI:Soft, Non tender, Bowel sounds present Extremities/Musculoskeletal:normal inspection, 1+ edema Neurologic/Psych:AAOX3, grossly no focal neurological deficits Skin: normal color, warm Recurrent Bilateral chylothorax Acute respiratory failure with hypoxia Likely secondary to B-cell lymphoma S/P B/L thoracentesis S/P Left Pleurx catheter placement on 12/20/2024 Small pneumothorax post Pleurx catheter placement seem to be resolved Appreciate pulmonary help Wean off of supplemental oxygen as able Will need 2 step prior to discharge Continue TPN, bowel rest Pleural fluid cytology negative for malignancy. Pleural fluid culture negative to date for any infection Pathology from lymph node biopsy at [facility] is inconclusive Patient may need need lymphangiography and possible embolization Pleural fluid studies for triglyceride pending Continue octreotide Concern for recurrence of lymphoma or transformation to an aggressive lymphoma Follows with lymphoma specialist Dr. Montanez ([facility]):[phone] If no improvement with current management, plan to transfer to tertiary care facility for Lymphangiography and further management--possible embolization No plan for Pleurx placement on right side unless symptomatically requires Continue Pleurx catheter drainage every alternate day as recommended by pulmonology Discussed with Dr. Pasha Jones at [facility], who accepted the patient for further management. Transfer to tertiary care facility today. I personally interviewed and examined the patient at bedside. I have reviewed the advanced practitioner's documentation on the date of service referred in note and agree with plan. Patient's care is coordinated with Yessica GOMEZ. Please refer to the documentation above for details of patient's presentation and for discussion of other issues. I spent a total of20 minutes coordinating, documenting, and providing care for this patient excluding time spent in the performance of separately billed services or time spent by another provider/QHP. Subjective Patient seen sitting up in bed Complaining of nausea and discomfort at chest tube site Had pleuritic chest pain last night that resolved with pain medicine Denies headaches, dizziness, chest pain, SOB, abdominal pain, V/D Transfer arranged to [facility] at 1100 Review of Systems Review of Systems: All systems reviewed & are unremarkable except as noted in Subjective Physical Exam Physical Exam: General/Psych: WD/WN, sitting up in bed, NAD, conversing easily, on 2L NC Head: normocephalic, atraumatic Eyes: normal inspection, PERRL, conjunctivae pink ENT: external ear and nose normal, oropharynx normal Neck: normal visual inspection, trachea midline Respiratory: normal respiratory effort, lungs clear to auscultation but diminished in bilateral bases, no wheeze/rales/rhonchi, no accessory muscle use, CT in left chest capped Cardiovascular: regular rate and rhythm, no murmur/rub/gallop, no JVD Extremities: no cyanosis or clubbing, normal peripheral pulses, no BLE edema Abdomen/GI: normal bowel sounds, soft, nontender Neurologic/MSK: A+Ox3, motor strength 5/5, moves all extremities Skin: no rashes, normal color, warm and dry Results & Data Results & Data Vital Signs (Past 12 Hours) Vital Signs Temp Pulse Pulse Resp BP Pulse Ox O2 Del Method 12/23/24 03:58 36.4 C L 81 20 103/69 91 Nasal Cannula 12/23/24 00:27 36.4 C L 78 18 101/69 91 Nasal Cannula 12/22/24 21:51 76 O2 Flow Rate 12/23/24 03:58 2 12/23/24 00:27 2.0 12/22/24 21:51 Laboratory Results BMP 12/23/24 07:38 Sodium 135 L Potassium 3.9 Chloride 102 Carbon Dioxide 29 BUN 27 H Creatinine 0.47 L Calcium 8.1 L I have independently reviewed and interpreted patient's labs including BMP and mag. Medications Administered Current Inpatient Medications Albuterol (Albuterol Hfa 8 Gm Inhaler) 2 puffs INH Q6H PRN PRN Reason: Shortness Of Breath Or Wheezing Stop: 01/17/25 12:03 Calcium/Vitamin D (Calcium 600mg + Vit D 400 Iu Tab) 1 tab PO DAILY [facility] Stop: 01/18/25 08:59 Last Admin: 12/22/24 08:02 Dose: 1 tab Docusate Sodium (Docusate Sodium 100 Mg Cap) 100 mg PO BID [facility] Stop: 01/17/25 20:59 Last Admin: 12/22/24 21:43 Dose: 100 mg Fluticasone Propionate (Fluticasone Propionate Na Spr 16 Gm Btl) 1 sprays NA DAILY [facility] Stop: 01/17/25 09:59 Last Admin: 12/22/24 08:01 Dose: Not Given Folic Acid (Folic Acid 1 Mg Tab) 1 mg PO DAILY [facility] Stop: 01/17/25 09:59 Last Admin: 12/22/24 08:00 Dose: 1 mg Gabapentin (Gabapentin 300 Mg Cap) 300 mg PO TID [facility] Stop: 01/17/25 09:59 Last Admin: 12/22/24 21:44 Dose: 300 mg Heparin Sodium (Beef Lung) (Heparin 10 Unit/Ml 5 Ml Flush) 5 ml FLUSH PRN PRN PRN Reason: Flush Stop: 01/18/25 15:16 Heparin Sodium (Porcine) (Heparin 100 Unit/Ml 5ml Flush) 5 ml FLUSH PRN PRN PRN Reason: Flush Stop: 01/21/25 02:41 Heparin Sodium (Porcine) (Heparin Sod 5,000 Unit/0.5 Ml Vial) 5,000 units SQ Q12 [facility] Stop: 01/21/25 20:59 Last Admin: 12/22/24 21:05 Dose: 5,000 units Hydroxyzine HCl (Hydroxyzine Hcl 10 Mg Tab) 10 mg PO QID PRN PRN Reason: Anxiety Stop: 01/17/25 06:11 Promethazine HCl (Phenergan) 12.5 mg in 50.5 mls @ 202 mls/hr IV Q6H PRN PRN Reason: Nausea And Vomiting Stop: 01/16/25 20:07 Last Infusion: 12/20/24 21:31 Dose: Infused Acetaminophen (Ofirmev) 1,000 mg in 100 mls @ 400 mls/hr IV Q8H [facility] Stop: 12/23/24 09:29 Last Infusion: 12/23/24 00:41 Dose: Infused Amino Acids/Dextrose 1,281 ml/ (Nutrition (Parenteral)) 1,281 mls @ 53.4 mls/hr IV .Q24H [facility]; Protocol Stop: 12/23/24 15:59 Last Admin: 12/22/24 16:22 Dose: 53.4 mls/hr Miscellaneous (Stop Clinolipid) 1 each N/A TODAY@0359 [facility] Stop: 01/20/25 03:58 Last Admin: 12/23/24 04:00 Dose: 1 each Miscellaneous Information (Tpn/Ppn Consult Pharmacy) 1 each N/A PRN PRN PRN Reason: Consult Stop: 01/18/25 13:07 Montelukast Sodium (Montelukast Sodium 10 Mg Tablet) 10 mg PO DAILY [facility] Stop: 01/18/25 08:59 Last Admin: 12/22/24 07:59 Dose: 10 mg Octreotide Acetate (Octreotide Acetate 100 Mcg/Ml Vial) 100 mcg SQ Q8 [facility] Stop: 01/19/25 14:29 Last Admin: 12/23/24 06:12 Dose: 100 mcg Ondansetron HCl (Ondansetron Inj 2 Mg/Ml 2 Ml Vial) 4 mg IV Q6H PRN PRN Reason: Nausea And Vomiting Stop: 01/20/25 14:36 Last Admin: 12/23/24 06:33 Dose: 4 mg Oxycodone HCl (Oxycodone Hcl Ir 5 Mg Tab (Immediate Release)) 5 - 10 mg PO QID PRN PRN Reason: Pain Stop: 12/31/24 19:58 Last Admin: 12/22/24 18:13 Dose: 10 mg Pantoprazole Sodium (Pantoprazole 40 Mg Tab) 40 mg PO [facility] Stop: 01/17/25 12:14 Last Admin: 12/22/24 07:59 Dose: 40 mg Polyethylene Glycol (Polyethylene (Miralax) 17 Gm Pack) 17 gm PO DAILY PRN PRN Reason: Constipation Stop: 01/17/25 18:14 Prednisone (Prednisone 2.5 Mg Tab) 7.5 mg PO [facility] Stop: 01/17/25 12:14 Last Admin: 12/22/24 07:59 Dose: 7.5 mg Prednisone (Prednisone 1 Mg Tab) 1 mg PO [facility] Stop: 01/17/25 12:14 Last Admin: 12/22/24 08:02 Dose: 1 mg
[2024-12-23 08:17] LABS: Anion Gap 4.0 (3-11); Blood Urea Nitrogen 27.0 mg/dl (6-23); Calcium 8.1 mg/dl (8.6-10.3); Carbon Dioxide 29.0 mmol/L (21-32); Chloride 102.0 mmol/L (98-107); Creatinine Clr Calc Pharmacy 125.0 ml/min; Magnesium 1.9 mg/dl (1.7-2.4); Potassium 3.9 mmol/L (3.5-5.1); Sodium 135.0 mmol/L (136-145)
[2024-12-23] MEDS: ACETAMINOPHEN 1,000 MG/100 ML VIAL IV STA (11:01)
== END 2024-12-23 12:50 | disposition short-term general hospital (02) | DRG 840 ==
LOC: ED 09:30 → 2S 14:27 → SUATTDRO 14:27 → 2S 16:26